=== PATIENT | male | born 1935 | race Caucasian/White ===

== ENCOUNTER 2019-09-10 09:15 | Inpatient (IN) | payer OTHER, MEDICARE ==
[2019-09-10 10:17] LABS: Absolute Lymphocytes (CBC) 0.8 K/uL (0.7-4.9); Basophils % 0.6 % (0-1.3); Hematocrit 21.6 % (39.6-49.0); Lymphocytes % 9.6 % (15.3-44.8); MPV 7.8 fL (7.6-11.3)
[2019-09-10] MEDS ORDERED: FAMOTIDINE 20 MG/2 ML VIAL IV ONE (10:22)
[2019-09-10] MEDS ORDERED: NA CHLORIDE 0.9% 1,000 ML ONE (10:22)
--- NOTE | 2019-09-10 10:24 | RAD REPORT ---
EXAM DESCRIPTION: RAD - Chest Single View - 09/10/2019 10:06 am CLINICAL HISTORY: COUGH Chest pain. COMPARISON: CHEST PA AND LAT 2 VIEW dated 04/24/2013; CHEST PA AND LAT 2 VIEW dated 08/22/2011; CHEST PA AND LAT 2 VIEW dated 06/06/2011; CHEST SINGLE VIEW dated 09/23/2006 FINDINGS: Portable technique limits examination quality. Mild interstitial prominence is present throughout lungs likely representing mild interstitial pulmon jorge luis edema or interstitial pneumonia. The heart is upper limit normal in size. No displaced fractures.
[2019-09-10 10:39] LABS: Protime INR 1.77
[2019-09-10 10:46] LABS: Albumin 1.8 g/dL (3.4-5.0); Bilirubin Direct 0.1 mg/dL (0-0.2); Bilirubin Total 0.3 mg/dL (0.2-1.0); Magnesium 1.8 mg/dL (1.8-2.4); Potassium 4.9 mmol/L (3.5-5.1); Protein, Total 6.8 g/dL (6.4-8.2); Troponin (Emerg Dept Use Only) 0.05 ng/mL (0.0-0.045)
[2019-09-10] MEDS ORDERED: CEFTRIAXONE/SWI 1gm 1 GM/10 ML SYR ONE (10:50)
--- NOTE | 2019-09-10 11:14 | ER ---
Nurse's Notes [facility] Name: Celestino Pardo Jr Age: 83 yrs Sex: Male : 1935 Arrival Date: 09/10/2019 Time: 09:19 Bed 6 Private MD: Diagnosis: Anemia, unspecified;Acute kidney failure-on chronic;Unspecified combined systolic (congestive) and diastolic (congestive) heart failure;Pressure ulcer of sacral region;Pressure ulcer of sacral region, stage 1;Urinary tract infection, site not specified Presentation: 09/09 09:20 Chief complaint: EMS states: He needs a blood transfusion. RBC 2.16; Hgb 6.3; HCT 19.2. 7 Faculty at [facility] reports he has multiple pressure ulcers. Coronavirus screen: Proceed with normal triage. Patient reports a cough. Patient denies shortness of breath or difficulty breathing. Patient denies measured and/or subjective temperature greater than 100.4F prior to today's visit. Patient denies travel on a cruise ship or to a country the [facility] currently lists as an affected area. Patient denies contact with known and/or suspected case of COVID-19. Ebola Screen: No symptoms or risks identified at this time. Initial Sepsis Screen: Does the patient meet any 2 criteria? No. Patient's initial sepsis screen is negative. Does the patient have a suspected source of infection? No. Patient's initial sepsis screen is negative. Risk Assessment: Do you want to hurt yourself or someone else? Patient reports no desire to harm self or others. Onset of symptoms was September 10, 2019. Care prior to arrival: None. 09:20 Method Of Arrival: EMS: [facility] 09:20 Acuity: KARISSA 3 Historical: - Allergies: 09:36 Ecotrin; - Home Meds: 09:36 amlodipine 5 mg tab 1 tab once daily [Active]; apixaban oral 2.5 mg oral [Active]; jl7 Arginaid 4.5 gram-156 mg/9.2 gram oral pwpk [Active]; ascorbic acid (vitamin C) oral [Active]; cholecalciferol (vitamin D3) 1,000 unit oral cap [Active]; Cholestyramine Light 4 gram oral powd 1 scoop 2 times per day [Active]; darbepoetin farrah in polysorbate injection injection [Active]; Diflucan 200 mg Oral tab 1 tab once daily [Active]; docusate sodium 100 mg Oral cap 1 cap once daily [Active]; Humalog Sub-Q [Active]; ipratropium-albuterol inhalation Inhl [Active]; Protonix Oral [Active]; Pyridoxine Oral [Active]; Santyl Topical [Active]; sennosides 8.6 mg oral tab [Active]; - PMHx: 09:36 Aspiration pneumonia; E. Coli; pseudomonas; dysphagia; pressure ulcers; obstructive and jl7 reflux uropathy; Anemia; Diabetes - IDDM; Hyperlipidemia; Dementia; Hypertension; CAD; CHF; DVT LUE; Bronchitis; constipation; GI Bleed; Renal Disease; - Immunization history:: Adult Immunizations up to date. - Social history:: Smoking status: Patient denies any tobacco usage or history of. - Family history:: not pertinent. Screenin:15 Abuse screen: Denies threats or abuse. Denies injuries from another. Nutritional iw screening: Difficulty chewing/swallowing? Yes. Tuberculosis screening: No symptoms or risk factors identified. Fall Risk IV access (20 points). Assessment: 10:12 General: Appears in no apparent distress. uncomfortable, Behavior is calm. Pain: iw Complains of pain in back and buttocks. Neuro: Level of Consciousness is awake, alert, obeys commands, Oriented to person, place, Weakness in left in bilateral arm(s) leg(s). Cardiovascular: Denies chest pain, Capillary refill is > 3 seconds. Respiratory: Respiratory effort is even, unlabored. GI: Abdomen is non-distended, bruising noted across abdomen Bowel sounds present X 4 quads. : Martin in place to gravity drainage Urine is cloudy. Derm: Skin is fragile, is thin, with poor turgor Skin is dry, Skin is pale, Decubitus located on sacrum approximately 2.6 cm to 7.5 cm is stage I bed has granulation present. 10:30 Reassessment: Patient appears in no apparent distress at this time. pt repositioned in iw bed, pillows placed under hips and right leg. 11:07 Reassessment: martin catheter changed out, yellow dried purulence noted to tip of martin iw and, replaced with 16 FR silicone martin, to gravity drainage. 12:00 Reassessment: First unit PRBCs started. NAD. VSS. See blood transfusion record in paper hb chart. 13:06 Reassessment: Blood infusion continues, pt denies SOB/pain, no apparent distress. Vital hb signs stable. Admission ordered, awaiting room assignment at this time. Vital Signs: 09:20 BP 111 / 55; Pulse 96; Resp 20 S; Temp 97(O); Pulse Ox 100% on R/A; Pain 0/10; jl7 10:32 BP 104 / 51; Pulse 89; Resp 16 S; Pulse Ox 98% on R/A; jl7 12:25 BP 115 / 56; Pulse 90; Resp 18; Pulse Ox 100% on R/A; hb 13:07 BP 113 / 64; Pulse 81; Resp 19; Pulse Ox 99% on R/A; hb [place] Coma Score: 11:37 Eye Response: spontaneous(4). Verbal Response: oriented(5). Motor Response: obeys tawanna commands(6). Total: 15. ED Course: 09:19 Patient arrived in ED. jl7 09:23 Triage completed. jl7 09:25 Chau Berg MD is Attending Physician. tawanna 09:36 Arm band placed on right wrist. jl7 09:40 Patient has correct armband on for positive identification. Placed in gown. Bed in low jl7 position. Call light in reach. Side rails up X2. 09:45 manager monitoring on. Pulse ox on. NIBP on. jl7 10:06 XRAY Chest (1 view) In Process Unspecified. EDMS 10:12 Initial lab(s) drawn, by me, sent to lab. X-ray(s) taken. Inserted saline lock: 20 iw gauge in right antecubital area, using aseptic technique. Blood collected. 10:23 Jennifer Lopez, LUTHER is Primary Nurse. jl7 10:23 Basic Metabolic Panel Sent. jl7 10:48 Notified ED physician of a critical lab result(s). Bicarb 14. aa5 11:10 Prince Rosa MD is Hospitalizing Provider. tawanna 13:16 No provider procedures requiring assistance completed. Patient admitted, IV remains in jl7 place. intact, No redness/swelling at site. Administered Medications: Discontinued: NS 0.9% 1000 ml IV at 125 ml/hr continuous 10:22 Drug: Pepcid 20 mg Route: IVP; Site: right antecubital; iw 10:35 Follow up: Response: No adverse reaction jl7 10:22 Drug: NS 0.9% 1000 ml Route: IV; Rate: 125 ml/hr; Site: right antecubital; iw 11:49 Drug: Rocephin 1 grams Route: IV; Rate: per protocol; Site: right antecubital; iw 11:52 Follow up: Response: No adverse reaction; IV Status: Completed infusion jl7 Point of Care Testing: Guaiac: 11:37 Stool Guaiac: Negative; Stool Hemoccult Control: Pass; tawanna Outcome: 11:13 Decision to Hospitalize by Provider. tawanna 13:16 Admitted to Med/surg accompanied by tech, via stretcher, room 207, with chart, Report jl7 called to LUTHER Light 13:16 Condition: stable 13:16 Discharge instructions given to patient, Instructed on discharge instructions, Demonstrated understanding of instructions. 14:01 Patient left the ED. jl7 Signatures: Dispatcher [employer] EDChau Harley MD MD cha Williams, Irene, RN RN Anali Daigle RN RN aa5 Galilea Harding, RN RN Jennifer Bradford RN RN jl7 Corrections: (The following items were deleted from the chart) 12:27 12:00 Reassessment: First unit PRBCs started. NAD. VSS. hb hb
--- NOTE | 2019-09-10 11:14 | EDPHYS ---
Physician Documentation [facility] Name: Celestino Pardo Jr Age: 83 yrs Sex: Male : 1935 Arrival Date: 09/10/2019 Time: 09:19 Bed 6 Private MD: ED Physician Chau Berg HPI: 09/09 09:36 This 83 yrs old Male presents to ER via EMS with complaints of Abnormal Lab tawanna Results, hgb 6.3. 09:36 sent from ma , hgb 6.3. Onset: The symptoms/episode began/occurred 2 day(s) ago. tawanna Severity of symptoms: At their worst the symptoms were mild in the emergency department the symptoms are unchanged. It is unknown whether or not the patient has had similar symptoms in the past. Historical: - Allergies: 09:36 Ecotrin; jl7 - Home Meds: 09:36 amlodipine 5 mg tab 1 tab once daily [Active]; apixaban oral 2.5 mg oral [Active]; jl7 Arginaid 4.5 gram-156 mg/9.2 gram oral pwpk [Active]; ascorbic acid (vitamin C) oral [Active]; cholecalciferol (vitamin D3) 1,000 unit oral cap [Active]; Cholestyramine Light 4 gram oral powd 1 scoop 2 times per day [Active]; darbepoetin farrah in polysorbate injection injection [Active]; Diflucan 200 mg Oral tab 1 tab once daily [Active]; docusate sodium 100 mg Oral cap 1 cap once daily [Active]; Humalog Sub-Q [Active]; ipratropium-albuterol inhalation Inhl [Active]; Protonix Oral [Active]; Pyridoxine Oral [Active]; Santyl Topical [Active]; sennosides 8.6 mg oral tab [Active]; - PMHx: 09:36 Aspiration pneumonia; E. Coli; pseudomonas; dysphagia; pressure ulcers; obstructive and jl7 reflux uropathy; Anemia; Diabetes - IDDM; Hyperlipidemia; Dementia; Hypertension; CAD; CHF; DVT LUE; Bronchitis; constipation; GI Bleed; Renal Disease; - Immunization history:: Adult Immunizations up to date. - Social history:: Smoking status: Patient denies any tobacco usage or history of. - Family history:: not pertinent. ROS: 09:41 Eyes: Negative for injury, pain, redness, and discharge, ENT: Negative for injury, tawanna pain, and discharge, Neck: Negative for injury, pain, and swelling, Cardiovascular: Negative for chest pain, palpitations, and edema, Respiratory: Negative for shortness of breath, cough, wheezing, and pleuritic chest pain, Abdomen/GI: Negative for abdominal pain, nausea, vomiting, diarrhea, and constipation, Back: Negative for injury and pain, : Negative for injury, bleeding, discharge, and swelling, Psych: Negative for depression, anxiety, suicide ideation, homicidal ideation, and hallucinations, Allergy/Immunology: Negative for hives, rash, and allergies, Endocrine: Negative for neck swelling, polydipsia, polyuria, polyphagia, and marked weight changes, Hematologic/Lymphatic: Negative for swollen nodes, abnormal bleeding, and unusual bruising. 09:41 Constitutional: Positive for fatigue, malaise, poor PO intake. 09:41 Skin: Positive for pallor. 09:41 Neuro: Positive for weakness. 10:02 Abdomen/GI: Negative for vomiting, black/tarry stool, no hx giveng of bloody stools, tawanna coffee ground emesis. Exam: 09:41 Constitutional: This is a well developed, well nourished patient who is awake, alert, tawanna and in no acute distress. Head/Face: Normocephalic, atraumatic. Eyes: Pupils equal round and reactive to light, extra-ocular motions intact. Lids and lashes normal. Conjunctiva and sclera are non-icteric and not injected. Cornea within normal limits. Periorbital areas with no swelling, redness, or edema. ENT: Nares patent. No nasal discharge, no septal abnormalities noted. Tympanic membranes are normal and external auditory canals are clear. Oropharynx with no redness, swelling, or masses, exudates, or evidence of obstruction, uvula midline. Mucous membranes moist. Neck: Trachea midline, no thyromegaly or masses palpated, and no cervical lymphadenopathy. Supple, full range of motion without nuchal rigidity, or vertebral point tenderness. No Meningismus. Chest/axilla: Normal chest wall appearance and motion. Nontender with no deformity. No lesions are appreciated. Cardiovascular: Regular rate and rhythm with a normal S1 and S2. No gallops, murmurs, or rubs. Normal PMI, no JVD. No pulse deficits. Respiratory: Lungs have equal breath sounds bilaterally, clear to auscultation and percussion. No rales, rhonchi or wheezes noted. No increased work of breathing, no retractions or nasal flaring. Abdomen/GI: Soft, non-tender, with normal bowel sounds. No distension or tympany. No guarding or rebound. No evidence of tenderness throughout. Back: No spinal tenderness. No costovertebral tenderness. Full range of motion. 09:41 Skin: Appearance: Color: pale. 09:41 Neuro: Orientation: is normal, appropriate for stated age, no acute changes, Mentation: appropriate for stated age, no acute changes, responsive to voice lucid, Memory: appropriate for stated age, no acute changes, Cranial nerves: grossly normal, is grossly normal based on the patient's age, Motor: moves all fours, bilateral legs weak, not ambulated for over a year, Gait: not tested. seizure activity, is not displayed by the patient. 10:27 Abdomen/GI: Inspection: abdomen appears normal, Bowel sounds: normal, Palpation: mild tawanna abdominal tenderness, Rectal exam: rectal tone normal, Stool: normal, hemorrhoid(s), are not appreciated, mass, is not appreciated, swelling, is not appreciated, tenderness, is not appreciated, the exam is chaperoned by the nurse, Liver: no appreciated palpable abnormalities, Hernia: not appreciated. 11:37 ECG was reviewed by the Attending Physician. [facility] Vital Signs: 09:20 BP 111 / 55; Pulse 96; Resp 20 S; Temp 97(O); Pulse Ox 100% on R/A; Pain 0/10; jl7 10:32 BP 104 / 51; Pulse 89; Resp 16 S; Pulse Ox 98% on R/A; jl7 12:25 BP 115 / 56; Pulse 90; Resp 18; Pulse Ox 100% on R/A; hb 13:07 BP 113 / 64; Pulse 81; Resp 19; Pulse Ox 99% on R/A; hb [place] Coma Score: 11:37 Eye Response: spontaneous(4). Verbal Response: oriented(5). Motor Response: obeys [facility] commands(6). Total: 15. MDM: 09:25 Patient medically screened. [facility] 09:45 Data reviewed: vital signs, nurses notes, lab test result(s), EKG, radiologic studies, [facility] plain films. 11:14 ED course: dr hebert agrees with plan and test ordered, will admit full admission, [facility] will assume care now. 09/09 09:46 Order name: Basic Metabolic Panel [facility] 09/09 09:46 Order name: CBC with Diff; Complete Time: 10:30 [facility] 09/09 09:46 Order name: LFT's; Complete Time: 11:05 [facility] 09/09 09:46 Order name: Magnesium; Complete Time: 11:05 [facility] 09/09 09:46 Order name: NT PRO-BNP; Complete Time: 11:05 [facility] 09/09 09:46 Order name: PT-INR; Complete Time: 11:05 [facility] 09/09 09:46 Order name: Troponin (emerg Dept Use Only); Complete Time: 11:05 [facility] 09/09 09:46 Order name: Urine Culture [facility] 09/09 09:46 Order name: Lipase; Complete Time: 11:05 [facility] 09/09 09:46 Order name: Type And Screen [facility] 09/09 09:47 Order name: Basic Metabolic Panel; Complete Time: 11:05 [facility] 09/09 09:54 Order name: Bb Add On 09/09 10:21 Order name: Packed RBC Leukored [facility] 09/09 11:11 Order name: ABO/RH no charge; Complete Time: 13:40 [facility] 09/09 09:46 Order name: XRAY Chest (1 view); Complete Time: 10:30 [facility] 09/09 09:46 Order name: Cardiac monitoring; Complete Time: 10:22 [facility] 09/09 09:46 Order name: EKG - Nurse/Tech; Complete Time: 10:22 [facility] 09/09 09:46 Order name: IV Saline Lock; Complete Time: 10:23 [facility] 09/09 11:05 Order name: EKG Electrocardiogram [facility] 09/09 11:40 Order name: Packed RBC Leukored [facility] 09/09 11:40 Order name: Hematocrit [facility] 09/09 11:40 Order name: Hemoglobin [facility] 09/09 11:41 Order name: ABO/RH typing [facility] 09/09 11:41 Order name: Antibody Screen [facility] 09/09 11:48 Order name: Urine Dipstick--Ancillary (enter results); Complete Time: 13:40 09/09 12:48 Order name: Diet Ada 1800 Anthony; Complete Time: 12:58 hb 09/09 09:46 Order name: Labs collected and sent; Complete Time: 10:23 tawanna 09/09 09:46 Order name: O2 Per Protocol; Complete Time: 10:23 tawanna 09/09 09:46 Order name: O2 Sat Monitoring; Complete Time: 10:23 tawanna 09/09 09:46 Order name: Urine Dipstick-Ancillary (obtain specimen); Complete Time: 11:46 tawanna 09/09 10:32 Order name: Hill; Complete Time: 11:10 tawanna 09/09 10:32 Order name: Transfuse; Complete Time: 12:47 tawanna EC:37 Rate is 96 beats/min. Rhythm is regular. QRS [place] is Normal. [place] interval is normal. QRS tawanna interval is normal. QT interval is normal. No Q waves. T waves are Normal. No ST changes noted. Administered Medications: Discontinued: NS 0.9% 1000 ml IV at 125 ml/hr continuous 10:22 Drug: Pepcid 20 mg Route: IVP; Site: right antecubital; iw 10:35 Follow up: Response: No adverse reaction jl 10:22 Drug: NS 0.9% 1000 ml Route: IV; Rate: 125 ml/hr; Site: right antecubital; iw 11:49 Drug: Rocephin 1 grams Route: IV; Rate: per protocol; Site: right antecubital; iw 11:52 Follow up: Response: No adverse reaction; IV Status: Completed infusion jl7 Point of Care Testing: Guaiac: 11:37 Stool Guaiac: Negative; Stool Hemoccult Control: Pass; [facility] Disposition: 09/10/19 11:13 Hospitalization ordered by Prince Shellye for Inpatient Admission. Preliminary diagnosis are Anemia, unspecified, Acute kidney failure - on chronic, Unspecified combined systolic (congestive) and diastolic (congestive) heart failure, Pressure ulcer of sacral region, Pressure ulcer of sacral region, stage 1, Urinary tract infection, site not specified. - Bed requested for Telemetry/MedSurg (Inpatient). - Status is Inpatient Admission. jl7 - Condition is Fair. - Problem is new. - Symptoms are unchanged. Signatures: Dispatcher [employer] Joyce Oscar RN RN dw Anderson, Corey, MD MD cha Williams, Irene, RN RN iw Leal, Jahala, RN RN jl7 Corrections: (The following items were deleted from the chart) 13:10 11:13 Hospitalization Ordered by Prince Shelley YADAV for Inpatient Admission. Preliminary dw diagnosis is Anemia, unspecified; Acute kidney failure - on chronic; Unspecified combined systolic (congestive) and diastolic (congestive) heart failure; Pressure ulcer of sacral region; Pressure ulcer of sacral region, stage 1. Bed requested for Telemetry/MedSurg (Inpatient). Status is Inpatient Admission. Condition is Fair. Problem is new. Symptoms are unchanged. tawanna 13:41 13:10 09/10/2019 11:13 Hospitalization Ordered by Prince Shelley YADAV for Inpatient tawanna Admission. Preliminary diagnosis is Anemia, unspecified; Acute kidney failure - on chronic; Unspecified combined systolic (congestive) and diastolic (congestive) heart failure; Pressure ulcer of sacral region; Pressure ulcer of sacral region, stage 1. Bed requested for Telemetry/MedSurg (Inpatient). Status is Inpatient Admission. Condition is Fair. Problem is new. Symptoms are unchanged. dw 14:01 13:41 09/10/2019 11:13 Hospitalization Ordered by Prince Shelley YADAV for Inpatient jl7 Admission. Preliminary diagnosis is Anemia, unspecified; Acute kidney failure - on chronic; Unspecified combined systolic (congestive) and diastolic (congestive) heart failure; Pressure ulcer of sacral region; Pressure ulcer of sacral region, stage 1; Urinary tract infection, site not specified. Bed requested for Telemetry/MedSurg (Inpatient). Status is Inpatient Admission. Condition is Fair. Problem is new. Symptoms are unchanged. tawanna
--- NOTE | 2019-09-10 11:30 | EKG ---
Test Date: 2019-09-10 Test Time: 09:28:02 Associate Director Of Sales: WALLACE MEASUREMENT RESULTS: Intervals: Rate: 96 VA: 216 QRSD: 126 QT: 368 QTc: 464 [place]: P: 71 VA: 216 QRS: -16 T: 176 INTERPRETIVE STATEMENTS: Sinus rhythm with 1st degree AV block with premature atrial complexes Left bundle branch block Abnormal ECG Compared to ECG 06/06/2011 11:47:13 Atrial premature complex(es) now present First degree AV block now present Left bundle-branch block now present Left-axis deviation no longer present Left ventricular hypertrophy no longer present Electronically Signed On 09-10-19 11:29:35 CDT by Johnnie Mccord
[2019-09-10] MEDS ORDERED: NA CHLORIDE 0.9% 250 ML IV SCH (12:00)
[2019-09-10 12:53] LABS: Urine Blood 3+ (NEG); Urine Glucose NEGATIVE (NEG); Urine Protein 3+ (NEG); Urine Specific Gravity >1.030 (1.005-1.030); Urine pH 5.5 (5.0-7.0)
--- NOTE | 2019-09-10 13:38 | P.HP ---
Certification for Inpatient With expected LOS: >2 Midnights Patient will require the following post-hospital care: None Practitioner: I am a practitioner with admitting privileges, knowledge of patient current condition, hospital course, and medical plan of care. Services: Services provided to patient in accordance with Admission requirements found in Title 42 Section 412.3 of the Code of Federal Regulations Patient History Date of Service: 09/10/19 Reason for admission: abnormal labs History of Present Illness: Rubi is a 83-year-old male who presents from a alf for evaluation after recent blood work revealed he had a hemoglobin of 6.3. During our encounter this morning patient was complaining of feeling fatigued. Otherwise he denied any other symptoms such as bleeding. The rectal exam in the ER was negative. Additional workup in the ER revealed that he had a positive nitrites in his urine. He was given 1 injection of ceftriaxone. Allergies aspirin [From Ecotrin] Allergy (Unverified 09/10/19 12:56) Itching/Hives/Rash Review of Systems A comprehensive review of system was conducted in the ER. Please assist unremarkable except for HPI above. Physical Examination - Physical Exam General: In no apparent distress, Other (Patient is slightly confused) HEENT: Atraumatic, Normocephalic Neck: Supple Respiratory: Clear to auscultation bilaterally, Normal air movement Cardiovascular: No edema, Normal pulses, Regular rate/rhythm, Normal S1 S2 Gastrointestinal: Normal bowel sounds, Soft and benign, Non-distended Musculoskeletal: No clubbing, No contractures, No erythema, No tenderness Integumentary: No tenderness/swelling, No warmth Neurological: Abnormal affect - Studies Laboratory Data (last 24 hrs) 09/10/19 10:05: PT 20.6 H, INR 1.77 09/10/19 10:05: WBC 8.5, Hgb 7.1 L*, Hct 21.6 L, Plt Count 540 H 09/10/19 10:05: Sodium 139, Potassium 4.9, BUN 80 H, Creatinine 3.40 H, Glucose 196 H, Magnesium 1.8, Total Bilirubin 0.3, AST 20, ALT 28, Alkaline Phosphatase 204 H, Lipase 60 L Assessment and Plan - Problems (Diagnosis) (1) Symptomatic anemia Current Visit: Yes Status: Acute (2) DIEGO (acute kidney injury) Current Visit: Yes Status: Acute - Advance Directives Does patient have a Living Will: No Does patient have a Durable POA for Healthcare: No Physician Review Additional Text: Assessment Patient is a 83-year-old male who was brought into the ER after was found to have abnormal lab results at his alf. Hemoglobin was 6.3 in the alf. Repeat hemoglobin in the ER 7.1. His baseline hb is 11. Chest x-ray in the ER also revealed mild evidence of pulmonary edema. Patient himself is lethargic on examination. Plan: Admit inpatient with telemetry Transfuse with 2 units of packed RBC Start patient on IV Lasix 40 mg b.i.d, preferrably between transfusions Obtain a 2-D echo Monitor renal function
[2019-09-10] MEDS: FUROSEMIDE 40 MG/4 ML VIAL IV SCH ×2 (14:47→15:14)
[2019-09-10] MEDS ORDERED: NA CHLORIDE 0.9% 250 ML ONE (15:40)
[2019-09-10 21:50] LABS: Hematocrit 24.8 % (39.6-49.0)
[2019-09-11 08:25] LABS: Absolute Lymphocytes (CBC) 1.3 K/uL (0.7-4.9); Basophils % 0.7 % (0-1.3); Hematocrit 31.2 % (39.6-49.0); Lymphocytes % 15.4 % (15.3-44.8); MPV 8.1 fL (7.6-11.3); RBC Red Blood Cell Count 3.53 M/uL (4.33-5.43)
--- NOTE | 2019-09-11 09:02 | ECHO ---
HEIGHT: 5 ft 10 in WEIGHT: 243 lb 0 oz DATE OF STUDY: 09/10/[address]: Prince Kaylynn Rosa MD 2-DIMENSIONAL: YES M.MODE: YES DOPPLER: YES COLOR FLOW: YES TDS: NO PORTABLE: NO DEFINITY: NO BUBBLE STUDY: NO DIAGNOSIS: CONGESTIVE HEART FAILURE CARDIAC HISTORY: CATHERIZATION: NO SURGERY: NO PROSTHETIC VALVE: NO PACEMAKER: NO MEASUREMENTS (cm) DIASTOLIC (NORMALS) SYSTOLIC (NORMALS) IVSd 1.0 (0.6-1.2) LA Diam 4.0 (1.9-4.0) LVEF 50% LVIDd 5.3 (3.5-5.7) LVIDs 3.9 (2.0-3.5) %FS 25% LVPWd 1.0 (0.6-1.2) Ao Diam 2.5 (2.0-3.7) 2 DIMENSIONAL ASSESSMENT: RIGHT ATRIUM: NORMAL LEFT ATRIUM: NORMAL RIGHT VENTRICLE: NORMAL LEFT VENTRICLE: NORMAL SIZE TRICUSPID VALVE: NORMAL MITRAL VALVE: MITRAL ANNULAR CALCIFICATION PULMONIC VALVE: NORMAL AORTIC VALVE: STENOTIC PERICARDIAL EFFUSION: NONE AORTIC ROOT: NORMAL LEFT VENTRICULAR WALL MOTION: NORMAL EJECTION FRACTION - DECREASED LEFT VENTRICULAR COMPLIANCE. DOPPLER/COLOR FLOW: MILD AORTIC STENOSIS - AREA 1.6 CENTIMETERS SQUARED. MILD TRICUSPID REGURGITATION - MODERATE PULMONARY HYPERTENSION. COMMENTS: DECREASED LEFT VENTRICULAR COMPLIANCE - NORMAL EJECTION FRACTION. MILD AORTIC STENOSIS - AREA 1.6 CENTIMETERS SQUARED. MODERATE PULMONARY HYPERTENSION - RIGHT VENTRICULAR SYSTOLIC PRESSURE 54mmHg. TECHNOLOGIST: NEMO ONOFRE
--- NOTE | 2019-09-11 09:19 | RAD REPORT ---
EXAM DESCRIPTION: RAD - Chest Single View - 09/11/2019 8:41 am CLINICAL HISTORY: Pulm edema COMPARISON: September 09 TECHNIQUE: AP portable chest image was obtained 09/11/2019 8:41 am . FINDINGS: Lung volumes are normal. Increasing alveolar opacification is present in the left upper lo be. No change to the left lung base or right lung base. Alveolar opacification is slightly increased in the right upper lobe. The asymmetry of lung parenchymal opacification would be atypical for pulmonary edema. This remains i n etiology. However, bilateral upper lobe pneumonia should be considered. Heart size is upper normal. Vasculature within normal limits. No measurable pleural effusion and no pneumothorax. No acute bony abnormality seen. No acute aortic findings suspected. IMPRESSION: Developing left upper lobe alveolar opacification and to a lesser degree, right upper lo be opacification. Pulmonary edema has been diagnosed. However, this asymmetric pattern would not be typical. Bilateral pneumonia should be considered.
[2019-09-11 09:37] LABS: Potassium 5.6 mmol/L (3.5-5.1)
[2019-09-11] MEDS: FUROSEMIDE 40 MG/4 ML VIAL IV SCH ×3 (10:35→17:25)
--- NOTE | 2019-09-11 11:00 | P.PN ---
Subjective Date of Service: 09/11/19 Chief Complaint: abnormal labs Subjective: No new changes, Other (Patient states he is feeling comfortable. Denies any shortness of breath. Has mild lower extremity) Physical Examination - Vital Signs Temperature: 97.5 F Blood Pressure: 121/51 Pulse: 83 Respirations: 18 Pulse Ox (%): 100 - Physical Exam General: Alert, In no apparent distress, Cooperative HEENT: Atraumatic, Normocephalic Respiratory: Clear to auscultation bilaterally, Normal air movement Cardiovascular: No edema, Normal pulses, Regular rate/rhythm, Systolic murmur Gastrointestinal: Normal bowel sounds, Soft and benign, Non-distended Musculoskeletal: Erythema, Tenderness, Other (lower extremity tenderness, no edema) Neurological: Normal speech, Sensation intact, Normal affect Urinary: Hill catheter - Studies Laboratory Data (last 24 hrs) 09/10/19 10:05: PT 20.6 H, INR 1.77 Assessment And Plan - Current Problems (Diagnosis) (1) Symptomatic anemia Current Visit: Yes Status: Acute (2) DIEGO (acute kidney injury) Current Visit: Yes Status: Acute (3) Cardiorenal syndrome with renal failure Current Visit: Yes Status: Acute (4) Hyperkalemia Current Visit: Yes Status: Acute (5) Acute on chronic diastolic (congestive) heart failure Current Visit: Yes Status: Acute (6) Moderate to severe pulmonary hypertension Current Visit: Yes Status: Acute (7) Mild aortic stenosis Current Visit: Yes Status: Acute Physician Review Additional Text: Assessment Patient is a 83-year-old male who was brought into the ER after he was found to have abnormal lab results at his longterm. His Hb was 6.3 at the longterm. Repeat hemoglobin in the ER was 7.1. Chart review revealed a baseline hb of 11. Chest x-ray in the ER also revealed mild evidence of pulmonary edema. He received 2 units of pRBC with IV lasix injection between transfusions. Repeat Hb 10.3. His hospital course was complicated by worsening renal function. His 2-D ECHO showed impaired ventricular relaxation, mild and moderate pulmonary HTN. 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
[2019-09-11] MEDS ORDERED: SOD POLYSTYREN SUL 15 GM/60 ML UCUP PO ONE (11:06)
[2019-09-11] MEDS ORDERED: LACTULOSE 20 GM/30 ML UCUP PO PRN (12:23)
[2019-09-11] MEDS ORDERED: ACETAMINOPHEN 325 MG TABLET PO PRN (12:23)
[2019-09-11] MEDS ORDERED: DARBEPOETIN ALFA SQ SCH (12:30)
[2019-09-11] MEDS ORDERED: [UNRECOGNIZED DRUG - OTHER] SQ SCH (12:30)
[2019-09-11] MEDS ORDERED: IPRATROPIUM IH PRN (12:32)
[2019-09-11] MEDS ORDERED: ALBUTEROL SULFATE IH PRN (12:32)
[2019-09-11] MEDS ORDERED: [UNRECOGNIZED DRUG - OTHER] IH PRN (12:32)
[2019-09-11] MEDS ORDERED: CEPACOL LOZENGES PO PRN (13:53)
[2019-09-11] MEDS ORDERED: ALBUTEROL 2.5 MG/3 ML NEB SOL IH PRN (13:57)
[2019-09-11] MEDS ORDERED: IPRATROPIUM BROM 0.5MG/2.5ML IH PRN (13:58)
[2019-09-11] MEDS: AZITHROMYCIN IV 500 MG in NA CHLORIDE 0.9% 250 ML IVPB SCH (14:39)
[2019-09-11] MEDS: CEFTRIAXONE/SWI 1gm 1 GM/10 ML SYR IV SCH (16:08)
[2019-09-11] MEDS: METOPROLOL TAR 25 MG TAB PO SCH (17:23)
[2019-09-11] MEDS: COLLAGENASE 30 GM OINTMENT TOP SCH (17:45)
--- NOTE | 2019-09-11 20:28 | CON ---
Date of Consultation: 09/11/[address] Rosa on 09/10/2019. I saw the patient on 09/11/2019. Reason For Consultation: Congestive heart failure. History Of Present Illness: The patient is an 83-year-old male who has a history of dementia, diabet es, hypertension, and dyslipidemia. He also has a history of CAD, CHF, DVT, chronic renal disease, a nd GI bleed. He was admitted to the hospital because of anemia. Hemoglobin is 6.3. He complained o f dyspnea. Chest x-ray showed possible pneumonia versus congestive heart failure. The patient is pr esently on antibiotics. He denied any chest pain. Denied any fever or chills. Denied any palpitati on or syncope. Echocardiogram showed mild aortic stenosis 1.6 sq cm, moderate pulmonary hypertension , and decreased left ventricular compliance. I was asked to see him. Past Medical History: As stated above. Allergies: TO ASPIRIN AND STATIN. Review of Systems: Negative. Social History: Negative. Family History: Noncontributory. Medications: At home include Eliquis, Norvasc, insulin, Haldol, and inhalers. Physical Examination: General: He was alert and oriented x3. He weighed 243 pounds. HEENT: Negative. Neck: Supple without any bruit, lymphadenopathy, JVD, or thyromegaly. Chest: Reveals some rales, both bases. Cardiac: Revealed irregular rhythm and rate with an aortic stenosis murmur and a tricuspid regurgita tion murmur. No gallops or rubs. Abdomen: Benign. Extremities: Revealed trace edema. Pulses were present distally bilaterally. Skin: Dry and intact. Diagnostic Data: He had a creatinine of 3.50. His last hemoglobin was 10.3 after transfusion. EKG showed left bundle-branch block. BNP is 21,729. Impression And Plan: 1.Acute on chronic diastolic congestive heart failure. 2.Mild aortic stenosis. 3.Moderate pulmonary hypertension. 4.Diabetes. 5.Hypertension. 6.Dyslipidemia. 7.Dementia. 8.Coronary artery disease. 9.History of deep vein thrombosis, left upper extremity, on Eliquis. 10.Renal insufficiency, acute on chronic, stage 4. 11.History of gastrointestinal bleed and anemia status post transfusions. I think Mr. Pardo needs to continue the Eliquis, Norvasc, and insulin. For his pulmonary hyperte nsion and congestive heart failure and aortic stenosis, he should be on a low-dose beta-william. He should avoid JASBIR inhibitors and ARB use. I will continue the Lasix, but I would be very careful with his creatinine as it is. There is a chance that his chest x-ray may be more consistent with pneumon ia than congestive heart failure, although he is antibiotics and his white count is normal. I would watch the creatinine. I agree with Dr. Bruno seeing the patient. I will continue to follow him. FLAKITA/NILO Voice ID: [id number] Report ID: [id number]
[2019-09-11] MEDS ORDERED: MELATONIN PO SCH (21:00)
[2019-09-11] MEDS ORDERED: CHOLESTYRAMINE PO SCH (21:00)
[2019-09-11] MEDS ORDERED: [UNRECOGNIZED DRUG - OTHER] PO SCH (21:00)
[2019-09-11] MEDS ORDERED: SENNOSIDES PO SCH (21:00)
[2019-09-11] MEDS: CHOLESTYRAMINE/ASP 4 GM/PKT PO SCH (21:12)
[2019-09-11] MEDS: DOCUSATE NA 100 MG CAP PO SCH (21:12)
[2019-09-11] MEDS: MELATONIN 3 MG TABLET PO SCH (21:12)
[2019-09-11] MEDS: ZINC SULFATE 220 MG CAP PO SCH (21:12)
[2019-09-11] MEDS: SENOSIDES 8.6 MG TAB PO SCH (21:13)
[2019-09-11] MEDS: APIXABAN 2.5 MG TABLET PO SCH (21:13)
--- NOTE | 2019-09-11 21:14 | P.CNS ---
Date of Consult: 09/11/19 Reason for Consult: DIEGO/ CKD Requesting Physician: Prince Kaylynn Rosa Chief Complaint: Fatigue in the setting of severe anemia History of Present Illness: 83 yo WM CKD, HTN presented to the ER with moderate, progressive fatigue in the setting of severe anemia and CKD. No modifying fx. Feeling better sp blood transfusion. 09:36 This 83 yrs old Male presents to ER via EMS with complaints of Abnormal Lab tawanna Results, hgb 6.3. 09:36 [place] from [place] , hgb 6.3. Onset: The symptoms/episode began/occurred 2 day(s) ago. tawanna Severity of symptoms: At their worst the symptoms were mild in the emergency department the symptoms are unchanged. It is unknown whether or not the patient has had similar symptoms in the past. Allergies aspirin [From Ecotrin] Allergy (Verified 09/10/19 14:48) Itching/Hives/Rash Jlxdhok-Loh-Nyo Reductase Inhibitor Allergy (Verified 09/10/19 14:49) Itching/Hives/Rash Home medications list reviewed: Yes Home Medications: Acetaminophen [Tylenol*] 2 tab PO Q4H PRN 09/10/19 Amlodipine [Norvasc*] 1 tab PO DAILY 09/10/19 Apixaban [Eliquis *] 1 tab PO BID 09/10/19 Arginine/Ascorbate Sod/Rosio AC [Arginaid Powder] 1 packet PO BID 09/10/19 Ascorbic Acid [Vitamin C] 1 tab PO BID 09/10/19 Calcium Carbonate [Tums] 2 tab PO TID 09/10/19 Cholecalciferol (Vitamin D3) [Vitamin D3] 3 tab PO DAILY 09/10/19 Cholestyramine (with Sugar) [Cholestyramine Packet] 1 packet PO BID 09/10/19 Collagenase [Santyl Ointment*] 1 tatyana TOP DAILY 09/10/19 Darbepoetin Roddy in Polysorbat [Aranesp] 1 ml SQ SEECOM 09/10/19 Docusate [Colace Cap*] 1 tab PO BID 09/10/19 Fluconazole [Diflucan] 1 tab PO DAILY 09/10/19 Folic Acid 1 tab PO DAILY 09/10/19 Halobetasol Propionate 1 tatyana TOP DAILY 09/10/19 Insulin Lispro [Humalog Kwikpen U-100] See Protocol SQ BID 09/10/19 Ipratropium/Albuterol Sulfate [Iprat-Albut 0.5-3(2.5) mg/3 ml] 1 amp IH Q6H PRN 09/10/19 Lactulose 30 ml PO PRN PRN 09/10/19 Melatonin 1 tab PO BEDTIME 09/10/19 Multivitamin [Multivitamins] 1 tab PO DAILY 09/10/19 Pantoprazole Sodium [Protonix] 1 tab PO DAILY 09/10/19 Polyethylene Glycol 3350 [Miralax] 1 packet PO DAILY 09/10/19 Pyridoxine HCl [Vitamin B-6] 1 tab PO DAILY 09/10/19 Sennosides [Senna] 1 tab PO BEDTIME 09/10/19 Zinc Sulfate [Zinc Sulfate*] 1 cap PO BID 09/10/19 - Past Medical/Surgical History Diabetic: Yes -: DM -: dementia -: GI bleed -: DVT -: CAD -: PVD -: insomnia -: urinary retention -: obstructive and reflux uropathy -: embolism and thrombosis of left internal jugular vein -: right leg surgery - Family History Mother Medical History: Cancer Father Medical History: Cancer - Social History Alcohol use: No CD- Drugs: No Caffeine use: No Place of Residence: Assisted Review of Systems 10-point ROS is otherwise unremarkable General: Weakness, Malaise Respiratory: SOB with Excertion Integumentary: Lesions Neurological: Weakness Physical Examination Temp Pulse Resp BP Pulse Ox 98.5 F 88 18 119/62 98 09/11/19 16:00 09/11/19 17:25 09/11/19 16:00 09/11/19 17:25 09/11/19 16:00 General: Alert, In no apparent distress, Oriented x3, Cooperative HEENT: Atraumatic Neck: Supple Respiratory: Clear to auscultation bilaterally Cardiovascular: Regular rate/rhythm, Edema (Trace hip edema) Gastrointestinal: Soft and benign, Non-distended Musculoskeletal: No clubbing, No contractures Integumentary: No rashes, No cyanosis Neurological: Normal speech, Abnormal strength Blood work reviewed in the chart. Imagings Data: EXAM DESCRIPTION: RAD - Chest Single View - 09/11/2019 8:41 am CLINICAL HISTORY: Pulm edema COMPARISON: September 09 TECHNIQUE: AP portable chest image was obtained 09/11/2019 8:41 am . FINDINGS: Lung volumes are normal. Increasing alveolar opacification is present in the left upper lobe. No change to the left lung base or right lung base. Alveolar opacification is slightly increased in the right upper lobe. The asymmetry of lung parenchymal opacification would be atypical for pulmonary edema. This remains in etiology. However, bilateral upper lobe pneumonia should be considered. Heart size is upper normal. Vasculature within normal limits. No measurable pleural effusion and no pneumothorax. No acute bony abnormality seen. No acute aortic findings suspected. IMPRESSION: Developing left upper lobe alveolar opacification and to a lesser degree, right upper lobe opacification. Pulmonary edema has been diagnosed. However, this asymmetric pattern would not be typical. Bilateral pneumonia should be considered. EXAM DESCRIPTION: RAD - Chest Single View - 09/10/2019 10:06 am CLINICAL HISTORY: COUGH Chest pain. COMPARISON: CHEST PA AND LAT 2 VIEW dated 04/24/2013; CHEST PA AND LAT 2 VIEW dated 08/22/2011; CHEST PA AND LAT 2 VIEW dated 06/06/2011; CHEST SINGLE VIEW dated 09/23/2006 FINDINGS: Portable technique limits examination quality. Mild interstitial prominence is present throughout lungs likely representing mild interstitial pulmonary edema or interstitial pneumonia. The heart is upper limit normal in size. No displaced fractures. Echocardiogram 04.14.20 LEFT VENTRICULAR WALL MOTION: NORMAL EJECTION FRACTION DECREASED LEFT VENTRICULAR COMPLIANCE. DOPPLER/COLOR FLOW: MILD AORTIC STENOSIS AREA 1.6 CENTIMETERS SQUARED. MILD TRICUSPID REGURGITATION MODERATE PULMONARY HYPERTENSION. COMMENTS: DECREASED LEFT VENTRICULAR COMPLIANCE NORMAL EJECTION FRACTION. MILD AORTIC STENOSIS AREA 1.6 CENTIMETERS SQUARED. MODERATE PULMONARY HYPERTENSION RIGHT VENTRICULAR SYSTOLIC PRESSURE 54mmHg. Conclusions/Impression: A/ DIEGO likely CRS. Hyperkalemia Acidosis CKD III Severe malnutritiion/ Hypoalbuminemia. Diastolic CHF, chronic. Aortic stenosis. Pulmonary HTN. Anemia in chronic illness. GI bleed. DM II with CKD. HTN with CKD/ CHF. Acute GNR Cystitis. P/ Continue current POC and Medications. Agree with Kayexalate. Hold Lasix. Give IV Albumin. Agree with PRBC. Transfuse as needed. Continue Aranesp. Start oral bicarb. No NSAIDs. AM labs. Daily weight. Thank you kindly for the consultation. Case reviewed with Dr. Rosa.
[2019-09-11] MEDS: SODIUM BICARB 325 MG TAB PO SCH (22:52)
[2019-09-11] MEDS: ALBUMIN HUMAN 25% 200 ML IV SCH (22:52)
[2019-09-12] MEDS: ALBUMIN HUMAN 25% 200 ML IV SCH (03:16)
[2019-09-12 04:49] LABS: Urine Appearance CLOUDY; Urine Bilirubin NEGATIVE (NEG); Urine Blood 3+ (NEG); Urine Color YELLOW; Urine Glucose NEGATIVE (NEG); Urine Protein 1+ (NEG); Urine Urobilinogen 0.2 mg/dL (0.2-1.0)
[2019-09-12 04:50] LABS: Basophils % 0.5 % (0-1.3); Hematocrit 22.8 % (39.6-49.0); Lymphocytes % 15.4 % (15.3-44.8); MPV 7.5 fL (7.6-11.3); RBC Red Blood Cell Count 2.56 M/uL (4.33-5.43)
[2019-09-12 05:08] LABS: UR MICROALBUMIN 18.1 mg/dL (< 1.9)
[2019-09-12 05:13] LABS: Albumin 1.9 g/dL (3.4-5.0); Bilirubin Total 0.3 mg/dL (0.2-1.0); Magnesium 1.7 mg/dL (1.8-2.4); Phosphorus 5.7 mg/dL (2.5-4.9); Potassium 4.3 mmol/L (3.5-5.1); Protein, Total 6.2 g/dL (6.4-8.2); Uric Acid 10.5 mg/dL (3.5-7.2)
[2019-09-12 05:18] LABS: Urine Bacteria <20 /HPF (NONE SEEN)
[2019-09-12 05:19] LABS: Urine Culture Reflex Order NOT NEEDED
[2019-09-12] MEDS: METOPROLOL TAR 25 MG TAB PO SCH ×2 (07:05→17:42)
[2019-09-12] MEDS ORDERED: Magnesium Sulfate 2gm IVPB 2 G/50 ML BAG IV ONE (07:14)
[2019-09-12] MEDS: APIXABAN 2.5 MG TABLET PO SCH ×3 (07:49→21:00)
[2019-09-12] MEDS ORDERED: PANTOPRAZOLE 40MG TABLET PO SCH (09:00)
[2019-09-12] MEDS ORDERED: FLUCONAZOLE PO SCH (09:00)
[2019-09-12] MEDS ORDERED: PYRIDOXINE HCL PO SCH (09:00)
[2019-09-12] MEDS: HALOBETASOL PROPIONATE TOP SCH (09:00)
[2019-09-12] MEDS: COLLAGENASE 30 GM OINTMENT TOP SCH (09:00)
[2019-09-12] MEDS ORDERED: Meropenem 500 MG VIAL IV SCH (09:00)
[2019-09-12] MEDS ORDERED: COLLAGENASE 30 GM OINTMENT TOP SCH (09:00)
[2019-09-12] MEDS ORDERED: CHOLECALCIFEROL PO SCH (09:00)
[2019-09-12] MEDS ORDERED: CEFTRIAXONE 1 GM/NS 50 ML 1 GM/50 ML BAG IV SCH (09:00)
--- NOTE | 2019-09-12 09:29 | PN ---
Date of Progress Note: 09/12/2019 Mr. Pardo was admitted with severe anemia. He is status post transfusion, last hemoglobin was 10 .3, and he is feeling better. He has diabetes, hypertension, dyslipidemia, dementia, coronary artery disease. On echocardiogram, he was found to have mild aortic stenosis with an area of 1.6 sq cm. H e also had moderate pulmonary hypertension and diastolic congestive heart failure. His last creatini ne was 3.5. Dr. Bruno saw the patient and he recommended p.o. bicarbonate and holding the Lasix an d I agree with that. I do not really think the patient is in that much congestive heart failure. Hi s vital signs remained stable with a blood pressure of 117/59, and he is in sinus rhythm. He has imp roved dramatically. I would continue his present regimen. Follow Renal recommendations and will con tinue to follow. FLAKITA/NILO Voice ID: [id number] Report ID: [id number]
[2019-09-12] MEDS: Meropenem 500 MG in NA CHLORIDE 0.9% 100 ML IV SCH ×2 (09:31→20:38)
[2019-09-12] MEDS: VITAMIN D 1000 UNIT TAB PO SCH (09:32)
[2019-09-12] MEDS: VITAMIN D 5,000 UNIT CAP PO SCH (09:32)
[2019-09-12] MEDS: CALCITROL 0.25 MCG CAP PO SCH (09:33)
[2019-09-12] MEDS: SODIUM BICARB 325 MG TAB PO SCH ×3 (09:33→17:39)
[2019-09-12] MEDS: ZINC SULFATE 220 MG CAP PO SCH ×2 (09:33→20:38)
[2019-09-12] MEDS: FLUCONAZOLE 100 MG TAB PO SCH (09:33)
[2019-09-12] MEDS: DOCUSATE NA 100 MG CAP PO SCH ×2 (09:33→20:27)
[2019-09-12] MEDS: PYRIDOXINE (VIT B6) 50 MG TAB PO SCH (09:34)
[2019-09-12] MEDS: POLYETHYL GLY 3350 17 GM/DOSE PO SCH (09:34)
[2019-09-12] MEDS: CHOLESTYRAMINE/ASP 4 GM/PKT PO SCH ×2 (09:34→20:37)
[2019-09-12] MEDS: FOLIC ACID 1 MG TABLET PO SCH (09:34)
--- NOTE | 2019-09-12 11:02 | RAD REPORT ---
EXAM DESCRIPTION: CT - Abdomen Pelvis Wo Contrast - 09/12/2019 7:42 am CLINICAL HISTORY: Abdominal pain. R/O internal bleeding COMPARISON: No comparisons TECHNIQUE: CT imaging of the abdomen and pelvis was performed without contrast. Solid organ, bowel a nd vascular assessment is limited due to lack of IV and oral contrast. All CT scans are performed using dose optimization technique as appropriate and may include automated exposure control or mA/KV adjustment according to patient size. FINDINGS: Small bilateral pleural effusions.Cholecystectomy clips. Heavy atherosclerosis. The liver, spleen, pancreas, adrenal glands are within normal limits for a limited non-contrast exami nation.3 cm benign-appearing left renal cyst. Small caliceal calculi present in both kidneys without hydronephrosis. No bowel obstruction, free air, free fluid or abscess. Scattered diverticulosis coli. The appendix is not identified as a discrete structure, however, no secondary findings of appendicitis are identifie d. Moderate lumbar spondylosis.Moderate fat containing left inguinal hernia. IMPRESSION: No acute finding is demonstrated on limited noncontrast study.
--- NOTE | 2019-09-12 11:12 | P.PN ---
Subjective Date of Service: 09/12/19 Chief Complaint: Fatigue in the setting of severe anemia Subjective: No new changes (Patient is comfortable, supine in bed. Not dyspneic. Denies any shortness of breath. He is only reporting occasional fatigue) Physical Examination - Vital Signs Temperature: 97.9 F Blood Pressure: 119/57 Pulse: 80 Respirations: 21 Pulse Ox (%): 100 - Physical Exam General: Alert, In no apparent distress, Cooperative HEENT: Atraumatic, Normocephalic, EOMI Neck: Supple Respiratory: Clear to auscultation bilaterally, Normal air movement Cardiovascular: No edema, Regular rate/rhythm, Normal S1 S2 Gastrointestinal: Normal bowel sounds, Soft and benign, Non-distended Musculoskeletal: Other (Inverted R foot. R foot with chronic venous stasis) Integumentary: Erythema, Warmth Neurological: Normal speech, Sensation intact, Normal affect - Studies Microbiology Data (last 24 hrs): 09/10/19 11:35 Catheterized Urine [place] Count - Final BETWEEN 10,000 & 100,000 CFU/ML 09/10/19 11:35 Catheterized Urine - Final Pseudomonas Aeruginosa Assessment & Plan - Problems (Diagnosis) (1) Symptomatic anemia Current Visit: Yes Status: Acute (2) DIEGO (acute kidney injury) Current Visit: Yes Status: Acute (3) Cardiorenal syndrome with renal failure Current Visit: Yes Status: Acute (4) Hyperkalemia Current Visit: Yes Status: Acute (5) Acute on chronic diastolic (congestive) heart failure Current Visit: Yes Status: Acute (6) Moderate to severe pulmonary hypertension Current Visit: Yes Status: Acute (7) Mild aortic stenosis Current Visit: Yes Status: Acute (8) Pseudomonas urinary tract infection Current Visit: Yes Status: Acute (9) Pneumonia Current Visit: Yes Status: Acute Physician Review Additional Text: Assessment Patient is a 83-year-old male who was brought into the ER after he was found to have abnormal lab results at his halfway. His Hb was 6.3 at the halfway. Repeat hemoglobin in the ER was 7.1. Chart review revealed a baseline hb of 11. Chest x-ray in the ER also revealed mild evidence of pulmonary edema. He received 2 units of pRBC with IV lasix injection between transfusions with appropriate response but continues to have drops in Hb. GI consulted on 09/12/2019 for EGD. He has no gross evidence of bleeding. He was on apixaban. Past colonoscopy and possible EGD with no alarming findings. His hospital course was complicated by worsening renal function. Nephrology recommended discontinuing diuresis since patient is preload dependent. His 2-D ECHO showed impaired ventricular relaxation, mild and moderate pulmonary HTN. 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
--- NOTE | 2019-09-12 13:39 | CON ---
Date of Consultation: 09/12/2019 Reason For Visit: Multiple wounds. History Of Present Illness: Patient is an 83-year-old gentleman who was admitted with abnormal labs with a hemoglobin of 6.3 and on evaluation was found to have multiple wounds on his sacrum and lower extremity and perineum. I had seen this patient in consultation at the [facility] last week. He is awake, alert, a little lethargic. No fevers, no chills. No purulent discharge. No sore thr oat, runny nose, cough, headaches, or dizziness. No chest pain. Review of Systems: Otherwise unremarkable. Past Medical History: Significant for pneumonia, dysphagia, pressure ulcers, diabetes type 1, hyperl ipidemia, hypertension, dementia, coronary artery disease. Past Surgical History: Significant for a recent incision and drainage of perineal abscess. Allergies: INCLUDE ECOTRIN. Habits: Currently he does not smoke or drink. Family History: Noncontributory. Physical Examination: Vital Signs: Stable. He is afebrile. He is awake and alert, but lethargic. Head and Neck: No masses. Chest: Clear. Heart: S1 and S2. Abdomen: Soft. Extremities: Palpable, but diminished dorsalis pedis and posterior tibial pulses. Wounds examined; patient has partial thickness wounds on the left lower leg. No surrounding erythema, warmth, or anita a. He has a perineal wound that is clean, it is approximately 1.5 cm, but it goes deep and he has a stage III small 2 x 3 cm, sacral decubitus. No surrounding erythema or warmth or edema. Assessment: Multiple wounds in a patient with significant anemia. Please note his H and H is 7.5 an d 22.8. He is getting an EGD today, probably colonoscopy, so that workup is in progress. Wound care orders given. Santyl for the sacrum, wet-to-dry with Santyl to the perineal wound and Silvadene to the lower extremity wounds, offloading air mattress, nutritional support, and vitamins. We will foll ow up the patient at the [facility] upon discharge. Planning care discussed with Dr. Rosa. MARIA D/NILO Voice ID: [id number] Report ID: [id number]
[2019-09-12] MEDS: SILVER SULFADIAZINE 1% 25 GM TOP SCH (14:02)
[2019-09-12] MEDS ORDERED: EPINEPHRINE/PF 1 MG/ML AMP ONE (14:35)
[2019-09-12] MEDS ORDERED: propofoL 200 MG/20 ML VIAL IV ONE (14:53)
[2019-09-12] MEDS ORDERED: Phenylephrine HCl 10 MG/ML 1 ML VIAL ONE (14:54)
[2019-09-12] MEDS ORDERED: NA CHLORIDE 0.9% 500 ML ONE (15:07)
[2019-09-12] MEDS ORDERED: SODIUM CHLORIDE 0.9% 10ML INJ IV PRN (15:37)
[2019-09-12] MEDS: AZITHROMYCIN IV 500 MG in NA CHLORIDE 0.9% 250 ML IVPB SCH (17:38)
[2019-09-12] MEDS: CEFTRIAXONE/SWI 1gm 1 GM/10 ML SYR IV SCH (17:39)
[2019-09-12] MEDS ORDERED: ALBUMIN HUMAN 25% 200 ML IV ONE (20:09)
--- NOTE | 2019-09-12 20:09 | P.PN ---
Date of Service: 09/12/19 Vital Signs Temp Pulse Resp BP Pulse Ox 97.0 F 85 18 133/62 98 09/12/19 16:00 09/12/19 17:42 09/12/19 16:00 09/12/19 17:42 09/12/19 16:00 Medications Acetaminophen (Tylenol -Tablet) 650 mg PO Q4H PRN PRN Reason: Pain scale 2-4 (Mild) Stop: 10/11/19 12:24 Albuterol Sulfate (Proventil 0.083% Neb Soln) 2.5 mg IH [id number] PRN PRN Reason: SHORTNESS OF BREATH Stop: 10/11/19 13:58 Apixaban (Eliquis) 2.5 mg PO BID [facility] Stop: 10/11/19 21:01 Last Admin: 09/12/19 07:49 Dose: Not Given Documented by: Calcitriol (Rocaltrol) 0.5 mcg PO DAILY [facility] Stop: 10/12/19 09:01 Last Admin: 09/12/19 09:33 Dose: 0.5 mcg Documented by: Cetylpyridinium Chloride/Menthol (Cepacol Lozenges) 1 yuliana PO Q6H PRN PRN Reason: COUGH Stop: 10/11/19 13:54 Last Admin: 09/11/19 14:39 Dose: 1 yuliana Documented by: Cholecalciferol (Vitamin D 1000 Iu Tab) 3,000 unit PO DAILY [facility] Stop: 10/12/19 09:01 Last Admin: 09/12/19 09:32 Dose: 3,000 unit Documented by: Cholecalciferol (Vitamin D 5,000 Iu Cap) 5,000 unit PO DAILY [facility] Stop: 10/12/19 09:01 Last Admin: 09/12/19 09:32 Dose: 5,000 unit Documented by: Cholestyramine Resin (Questran Light) 4 gm PO BID [facility] Stop: 10/11/19 21:01 Last Admin: 09/12/19 09:34 Dose: 4 gm Documented by: Collagenase (Santyl Ointment) 1 appl TOP DAILY [facility] Stop: 10/11/19 17:46 Last Admin: 09/12/19 09:00 Dose: 1 applic Documented by: Docusate Sodium (Colace Cap) 100 mg PO BID [facility] Stop: 10/11/19 21:01 Last Admin: 09/12/19 09:33 Dose: 100 mg Documented by: Fluconazole (Diflucan Tab) 100 mg PO DAILY [facility] Stop: 10/12/19 09:01 Last Admin: 09/12/19 09:33 Dose: 100 mg Documented by: Folic Acid (Folic Acid) 1 mg PO DAILY [facility] Stop: 10/12/19 09:01 Last Admin: 09/12/19 09:34 Dose: 1 mg Documented by: Home Med (Darbepoetin Roddy In Polysorbat [Aranesp]) 1 ml SQ SEECOM [facility] Stop: 10/11/19 12:31 Home Med (Halobetasol Propionate [Halobetasol Propionate]) 1 tatyana TOP DAILY [facility] Stop: 10/12/19 09:01 Last Admin: 09/12/19 09:00 Dose: Not Given Documented by: Sodium Chloride (Sodium Chloride) 250 mls @ 0 mls/hr IV .Q0M [facility] Stop: 10/10/19 12:01 Azithromycin 500 mg/ Sodium (Chloride) 250 mls @ 250 mls/hr IVPB 1700 [facility]; Protocol Stop: 10/11/19 14:01 Last Admin: 09/12/19 17:38 Dose: 250 mls Documented by: Ceftriaxone Sodium/Sodium Chloride (Rocephin 1 Gm/10 Ml Swi Ivp) 1 gm in 10 mls @ 600 mls/hr IV 1700 [facility] Stop: 10/11/19 17:01 Last Admin: 09/12/19 17:39 Dose: 10 mls Documented by: Meropenem 500 mg/ Sodium (Chloride) 100 mls @ 100 mls/hr IV Q12HR [facility] Stop: 10/12/19 09:01 Last Admin: 09/12/19 09:31 Dose: 100 mls Documented by: Ipratropium [place] (Atrovent Neb) 0.5 mg IH [id number] PRN PRN Reason: SHORTNESS OF BREATH Stop: 10/11/19 13:59 Lactulose (Cephulac) 20 gm PO PRN PRN PRN Reason: CONSTIPATION Stop: 10/11/19 12:24 Melatonin (Melatonin) 3 mg PO BEDTIME [facility] Stop: 10/11/19 21:01 Last Admin: 09/11/19 21:12 Dose: 3 mg Documented by: Metoprolol Tartrate (Lopressor) 25 mg PO BID 6AM 6PM [facility] Stop: 10/11/19 18:01 Last Admin: 09/12/19 17:42 Dose: 25 mg Documented by: Pantoprazole Sodium (Protonix Inj) 40 mg IVP Q12HR [facility]; Protocol Stop: 10/12/19 21:01 Polyethylene Glycol (Glycolax) 17 gm PO DAILY [facility] Stop: 10/12/19 09:01 Last Admin: 09/12/19 09:34 Dose: 17 gm Documented by: Pyridoxine HCl (Vitamin B-6) 100 mg PO DAILY [facility] Stop: 10/12/19 09:01 Last Admin: 09/12/19 09:34 Dose: 100 mg Documented by: Senna (Senokot) 8.6 mg PO BEDTIME [facility] Stop: 10/11/19 21:01 Last Admin: 09/11/19 21:13 Dose: 8.6 mg Documented by: Silver Sulfadiazine (Silvadene 1% Cream) 1 appl TOP DAILY [facility] Stop: 10/12/19 11:01 Last Admin: 09/12/19 14:02 Dose: 1 appl Documented by: Sodium Bicarbonate (Sodium Bicarb 325 Mg) 650 mg PO TIDWM [facility] Stop: 10/11/19 21:31 Last Admin: 09/12/19 17:39 Dose: 650 mg Documented by: Sodium Chloride (Sodium Chloride 10 Ml Inj) 10 ml IV UD PRN PRN Reason: Diluant Stop: 10/12/19 15:38 Zinc Sulfate (Zinc Sulfate) 220 mg PO BID [facility] Stop: 10/11/19 21:01 Last Admin: 09/12/19 09:33 Dose: 220 mg Documented by: Microbiology Results 09/10/19 11:35 Catheterized Urine [place] Count - Final BETWEEN 10,000 & 100,000 CFU/ML 09/10/19 11:35 Catheterized Urine - Final Pseudomonas Aeruginosa Assessment/ Plan: Nephrology Doing well. +PO CPS stable without CP or SOB. No acute events overnight. Vitals, medications, blood work and imaging reviewed in the chart. General: Alert, In no apparent distress, Oriented x3, Cooperative HEENT: Atraumatic Neck: Supple Respiratory: Clear to auscultation bilaterally Cardiovascular: Regular rate/rhythm, Edema (Trace hip edema) Gastrointestinal: Soft and benign, Non-distended Musculoskeletal: No clubbing, No contractures Integumentary: No rashes, No cyanosis Neurological: Normal speech, Abnormal strength Blood work reviewed in the chart. Imagings Data: EXAM DESCRIPTION: RAD - Chest Single View - 09/11/2019 8:41 am CLINICAL HISTORY: Pulm edema COMPARISON: September 09 TECHNIQUE: AP portable chest image was obtained 09/11/2019 8:41 am . FINDINGS: Lung volumes are normal. Increasing alveolar opacification is present in the left upper lobe. No change to the left lung base or right lung base. Alveolar opacification is slightly increased in the right upper lobe. The asymmetry of lung parenchymal opacification would be atypical for pulmonary edema. This remains in etiology. However, bilateral upper lobe pneumonia should be considered. Heart size is upper normal. Vasculature within normal limits. No measurable pleural effusion and no pneumothorax. No acute bony abnormality seen. No acute aortic findings suspected. IMPRESSION: Developing left upper lobe alveolar opacification and to a lesser degree, right upper lobe opacification. Pulmonary edema has been diagnosed. However, this asymmetric pattern would not be typical. Bilateral pneumonia should be considered. EXAM DESCRIPTION: RAD - Chest Single View - 09/10/2019 10:06 am CLINICAL HISTORY: COUGH Chest pain. COMPARISON: CHEST PA AND LAT 2 VIEW dated 04/24/2013; CHEST PA AND LAT 2 VIEW dated 08/22/2011; CHEST PA AND LAT 2 VIEW dated 06/06/2011; CHEST SINGLE VIEW dated 09/23/2006 FINDINGS: Portable technique limits examination quality. Mild interstitial prominence is present throughout lungs likely representing mild interstitial pulmonary edema or interstitial pneumonia. The heart is upper limit normal in size. No displaced fractures. Echocardiogram 04.14.20 LEFT VENTRICULAR WALL MOTION: NORMAL EJECTION FRACTION DECREASED LEFT VENTRICULAR COMPLIANCE. DOPPLER/COLOR FLOW: MILD AORTIC STENOSIS AREA 1.6 CENTIMETERS SQUARED. MILD TRICUSPID REGURGITATION MODERATE PULMONARY HYPERTENSION. COMMENTS: DECREASED LEFT VENTRICULAR COMPLIANCE NORMAL EJECTION FRACTION. MILD AORTIC STENOSIS AREA 1.6 CENTIMETERS SQUARED. MODERATE PULMONARY HYPERTENSION RIGHT VENTRICULAR SYSTOLIC PRESSURE 54mmHg. Conclusions/Impression: A/ DIEGO likely CRS. Hyperkalemia Acidosis CKD III Severe malnutritiion/ Hypoalbuminemia. Diastolic CHF, chronic. Aortic stenosis. Pulmonary HTN. Anemia in chronic illness. GI bleed. DM II with CKD. HTN with CKD/ CHF. Acute GNR Cystitis. P/ Continue current POC and Medications. Hold Lasix. Give IV Albumin. Agree with PRBC. Transfuse as needed. Follow up with surgery today for GI evaluation. Encourage nutrition. No NSAIDs. AM labs. Daily weight.
[2019-09-12] MEDS: SENOSIDES 8.6 MG TAB PO SCH (20:28)
[2019-09-12] MEDS: PANTOPRAZOLE 40 MG INJ IVP SCH (20:37)
[2019-09-12] MEDS: MELATONIN 3 MG TABLET PO SCH (20:38)
[2019-09-12] MEDS ORDERED: ALBUMIN HUMAN 25% 50 ML IV ONE (23:28)
--- NOTE | 2019-09-12 23:53 | OP ---
Surgeon: Estuardo Mcqueen MD Procedure: Esophagogastroduodenoscopy. Indication For Procedure: Gradual drop in hemoglobin, rule out upper GI source of bleeding and chron ic anemia. Plan For Anesthesia: Monitored anesthesia care. Complexity: High due to patient's comorbidities. Technique: After obtaining informed consent from the legal brand representative explaining risks and compl ications, which include, but are not limited to, bleeding, infection, perforation, and anesthesia com plication, the patient was placed in left lateral position and sedation was given. The scope was adv anced through the mouth and carefully guided up until the second portion of the duodenum. There was no evidence of active bleeding; however, some findings were discovered. After the completion of exam ination and all diagnostic maneuvers, scope and equipment were withdrawn and procedure terminated in a safe manner. Findings: Esophagus: No gross lesion in the upper and mid esophagus. However, in the distal esopha shay, there was evidence of whitish plaques typically consistent with cam esophagitis. Also seen was mucosal inflammation and some ulceration consistent with LA grade C esophagitis with granularity. Biopsies were taken from the distal esophagus. Stomach: Mild to moderate patchy area with erythema seen in the body and antrum. Complete visualiza tion of the fundus and upper body was not possible due to some remnant food, but no gross lesion was visualized. Antral and body biopsies were taken. Duodenum: The bulb and second portion appeared normal. Biopsies taken from the second portion for t he anemia to rule out celiac disease. Complications: None. Tolerance To Anesthesia: Excellent. Postoperative Diagnosis: Suspected candidal esophagitis, moderate to severe esophagitis with some ul ceration but no active bleeding, abnormal esophageal mucosa, gastritis. Plan: 1.Await pathology results. 2.Switch to IV PPI b.i.d. 3.Start full liquid diet, advance as tolerated. 4.I had a detailed discussion with Dr. Rosa in regard to the treatment of the cam given his c ardiac condition, his other medication and multiple current antibiotics. He is going to speak with I nfectious Disease who is already on board in regard to that and put the patient on appropriate antifu ngal. We will, of course wait, for the biopsies as well. I would like to do another endoscopy in 6 weeks' time to reevaluate the distal esophagus if possible. US/MODL Voice ID: [id number] Report ID: [id number]
[2019-09-13] MEDS: METOPROLOL TAR 25 MG TAB PO SCH ×2 (05:14→17:27)
[2019-09-13 05:28] LABS: Absolute Lymphocytes (CBC) 0.9 K/uL (0.7-4.9); Basophils % 0.4 % (0-1.3); Hematocrit 21.9 % (39.6-49.0); Lymphocytes % 12.9 % (15.3-44.8); MPV 7.9 fL (7.6-11.3); RBC Red Blood Cell Count 2.47 M/uL (4.33-5.43)
[2019-09-13 05:48] LABS: Albumin 2.4 g/dL (3.4-5.0); Bilirubin Total 0.3 mg/dL (0.2-1.0); Magnesium 1.9 mg/dL (1.8-2.4); Potassium 3.1 mmol/L (3.5-5.1); Protein, Total 6.4 g/dL (6.4-8.2); Uric Acid 10.6 mg/dL (3.5-7.2)
[2019-09-13] MEDS: Meropenem 500 MG in NA CHLORIDE 0.9% 100 ML IV SCH ×2 (08:46→21:51)
[2019-09-13] MEDS: CALCITROL 0.25 MCG CAP PO SCH (08:46)
[2019-09-13] MEDS: SODIUM BICARB 325 MG TAB PO SCH ×3 (08:46→16:46)
[2019-09-13] MEDS: FOLIC ACID 1 MG TABLET PO SCH (08:47)
[2019-09-13] MEDS: VITAMIN D 5,000 UNIT CAP PO SCH (08:47)
[2019-09-13] MEDS: FLUCONAZOLE 100 MG TAB PO SCH (08:47)
[2019-09-13] MEDS: POLYETHYL GLY 3350 17 GM/DOSE PO SCH (08:47)
[2019-09-13] MEDS: DOCUSATE NA 100 MG CAP PO SCH ×2 (08:47→20:10)
[2019-09-13] MEDS: CHOLESTYRAMINE/ASP 4 GM/PKT PO SCH ×2 (08:47→20:09)
[2019-09-13] MEDS: PANTOPRAZOLE 40 MG INJ IVP SCH ×2 (08:47→21:51)
[2019-09-13] MEDS: HALOBETASOL PROPIONATE TOP SCH (08:48)
[2019-09-13] MEDS: VITAMIN D 1000 UNIT TAB PO SCH (08:48)
[2019-09-13] MEDS: COLLAGENASE 30 GM OINTMENT TOP SCH (08:48)
[2019-09-13] MEDS: APIXABAN 2.5 MG TABLET PO SCH (08:48)
[2019-09-13] MEDS: ZINC SULFATE 220 MG CAP PO SCH ×2 (08:49→20:09)
[2019-09-13] MEDS: SILVER SULFADIAZINE 1% 25 GM TOP SCH (08:49)
[2019-09-13] MEDS: PYRIDOXINE (VIT B6) 50 MG TAB PO SCH (08:49)
[2019-09-13] MEDS ORDERED: MICAFUNGIN SODIUM 100 MG VIAL IV SCH (16:00)
[2019-09-13] MEDS: AZITHROMYCIN IV 500 MG in NA CHLORIDE 0.9% 250 ML IVPB SCH (16:46)
--- NOTE | 2019-09-13 16:52 | PN ---
Date of Progress Note: 09/13/2019 Mr. Pardo has diabetes, hypertension, dyslipidemia, coronary artery disease, diastolic congestive heart failure, mild aortic stenosis and moderate pulmonary hypertension. He remains anemic with a h emoglobin of 7.3, creatinine is 3.49 despite holding the Lasix and given oral bicarb. His carbon chula xide is 14. His potassium is 3.1, which needs to be gently supplemented considering his creatinine. EGD yesterday showed Davida esophagitis. He has received some wound care by Dr. Hurst. Nephrology continues to follow the patient. He is off Lasix. He is not displaying any symptoms or signs of co ngestive heart failure. I agree with the present medical regimen. I will continue to follow him. FLAKITA/NILO Voice ID: [id number] Report ID: [id number]
[2019-09-13] MEDS ORDERED: NA CHLORIDE 0.9% 250 ML ONE ×2 (18:03→21:56)
--- NOTE | 2019-09-13 18:33 | P.PN ---
Subjective Date of Service: 09/13/19 Chief Complaint: Fatigue in the setting of severe anemia Subjective: No new changes (No symptomatic change. Denies any dyspnea or fatigue. He is staying for another blood transfusion.) Physical Examination - Vital Signs Temperature: 97.1 F Blood Pressure: 133/56 Pulse: 91 Respirations: 18 Pulse Ox (%): 100 - Physical Exam General: In no apparent distress, Cooperative, Other (slightly lethargic) HEENT: Atraumatic, Normocephalic, EOMI Neck: Supple Respiratory: Clear to auscultation bilaterally, Normal air movement Cardiovascular: Systolic murmur Gastrointestinal: Normal bowel sounds, Soft and benign, Non-distended Musculoskeletal: Other (R foot internally rotated) Integumentary: Other (bilateral lower extremity skin discoloration) Neurological: Normal speech, Sensation intact, Normal affect Assessment & Plan - Problems (Diagnosis) (1) Symptomatic anemia Current Visit: Yes Status: Acute (2) DIEGO (acute kidney injury) Current Visit: Yes Status: Acute (3) Cardiorenal syndrome with renal failure Current Visit: Yes Status: Acute (4) Hyperkalemia Current Visit: Yes Status: Acute (5) Acute on chronic diastolic (congestive) heart failure Current Visit: Yes Status: Acute (6) Moderate to severe pulmonary hypertension Current Visit: Yes Status: Acute (7) Mild aortic stenosis Current Visit: Yes Status: Acute (8) Pseudomonas urinary tract infection Current Visit: Yes Status: Acute (9) Pneumonia Current Visit: Yes Status: Acute Physician Review Additional Text: Assessment Patient is a 83-year-old male who was brought into the ER after he was found to have abnormal lab results at his assisted. His Hb was 6.3 at the assisted. Repeat hemoglobin in the ER was 7.1. Chart review revealed a baseline hb of 11. Chest x-ray in the ER also revealed mild evidence of pulmonary edema. He received 2 units of pRBC with IV lasix injection between transfusions with appropriate response but continues to have drops in Hb. Apixaban was discontinued. He underwent an EGD by GI on 09/12/2019 which showed no signs of active bleeding. However, it revealed esophageal ulcerations concerning for fungal infection. He was started on fluconazole. ID was also consulted as patient is also on meropenem for MDR pseudomonas UTI. His hospital course was complicated by worsening renal function. Nephrology recommended discontinuing diuresis since patient is preload dependent. His 2-D ECHO showed impaired ventricular relaxation, mild and moderate pulmonary HTN. Acute on chronic diastolic CHF Sympptomatic anemia Cardiorenal syndrome Moderate pulmonary HTN Mild aortic stenosis MDR pseudomonas UTI Pneumonia Plan: Transfuse another unit of pRBC Continue holding apixaban Discussed case with ID [facility] for check drug-drug interactions as patient is on fluconazole and meropenem Follow up repeat EGD in 6 weeks Hold diuresis Continue sodium bicarb Surgery was consulted for multiple sacral wounds. Santyl for the sacrum, we t-to-dry with Santyl to the perineal wound and Silvadene to the lower extremity wounds, offloading air mattress, nutritional support, and vitamins. Monitor renal function
[2019-09-13] MEDS: SENOSIDES 8.6 MG TAB PO SCH (20:09)
[2019-09-13] MEDS: MELATONIN 3 MG TABLET PO SCH (20:10)
[2019-09-13] MEDS ORDERED: POTASSIUM CL SA 10 MEQ TAB PO ONE ×2 (20:11→23:45)
--- NOTE | 2019-09-13 20:22 | P.PN ---
Date of Service: 09/13/19 Vital Signs Temp Pulse Resp BP Pulse Ox 97.1 F 91 H 18 133/56 L 100 09/13/19 18:37 09/13/19 18:37 09/13/19 18:37 09/13/19 18:37 09/13/19 18:37 Medications Acetaminophen (Tylenol -Tablet) 650 mg PO Q4H PRN PRN Reason: Pain scale 2-4 (Mild) Stop: 10/11/19 12:24 Albuterol Sulfate (Proventil 0.083% Neb Soln) 2.5 mg IH [id number] PRN PRN Reason: SHORTNESS OF BREATH Stop: 10/11/19 13:58 Apixaban (Eliquis) 2.5 mg PO BID [facility] Stop: 10/11/19 21:01 Last Admin: 09/13/19 08:48 Dose: 2.5 mg Documented by: Calcitriol (Rocaltrol) 0.5 mcg PO DAILY [facility] Stop: 10/12/19 09:01 Last Admin: 09/13/19 08:46 Dose: 0.5 mcg Documented by: Cetylpyridinium Chloride/Menthol (Cepacol Lozenges) 1 yuliana PO Q6H PRN PRN Reason: COUGH Stop: 10/11/19 13:54 Last Admin: 09/11/19 14:39 Dose: 1 yuliana Documented by: Cholecalciferol (Vitamin D 1000 Iu Tab) 3,000 unit PO DAILY [facility] Stop: 10/12/19 09:01 Last Admin: 09/13/19 08:48 Dose: 3,000 unit Documented by: Cholecalciferol (Vitamin D 5,000 Iu Cap) 5,000 unit PO DAILY [facility] Stop: 10/12/19 09:01 Last Admin: 09/13/19 08:47 Dose: 5,000 unit Documented by: Cholestyramine Resin (Questran Light) 4 gm PO BID [facility] Stop: 10/11/19 21:01 Last Admin: 09/13/19 20:09 Dose: 4 gm Documented by: Collagenase (Santyl Ointment) 1 appl TOP DAILY [facility] Stop: 10/11/19 17:46 Last Admin: 09/13/19 08:48 Dose: 1 applic Documented by: Docusate Sodium (Colace Cap) 100 mg PO BID [facility] Stop: 10/11/19 21:01 Last Admin: 09/13/19 20:10 Dose: 100 mg Documented by: Fluconazole (Diflucan Tab) 100 mg PO DAILY [facility] Stop: 10/12/19 09:01 Last Admin: 09/13/19 08:47 Dose: 100 mg Documented by: Folic Acid (Folic Acid) 1 mg PO DAILY [facility] Stop: 10/12/19 09:01 Last Admin: 09/13/19 08:47 Dose: 1 mg Documented by: Home Med (Darbepoetin Roddy In Polysorbat [Aranesp]) 1 ml SQ SEECOM [facility] Stop: 10/11/19 12:31 Home Med (Halobetasol Propionate [Halobetasol Propionate]) 1 tatyana TOP DAILY [facility] Stop: 10/12/19 09:01 Last Admin: 09/13/19 08:48 Dose: Not Given Documented by: Sodium Chloride (Sodium Chloride) 250 mls @ 0 mls/hr IV .Q0M [facility] Stop: 10/10/19 12:01 Meropenem 500 mg/ Sodium (Chloride) 100 mls @ 100 mls/hr IV Q12HR [facility] Stop: 10/12/19 09:01 Last Admin: 09/13/19 20:09 Dose: 100 mls Documented by: Sodium Bicarbonate 50 meq/ (Dextrose/Water) 1,050 mls @ 100 mls/hr IV .[id number] [facility] Stop: 09/14/19 07:29 Ipratropium [place] (Atrovent Neb) 0.5 mg IH [id number] PRN PRN Reason: SHORTNESS OF BREATH Stop: 10/11/19 13:59 Lactulose (Cephulac) 20 gm PO PRN PRN PRN Reason: CONSTIPATION Stop: 10/11/19 12:24 Melatonin (Melatonin) 3 mg PO BEDTIME [facility] Stop: 10/11/19 21:01 Last Admin: 09/13/19 20:10 Dose: 3 mg Documented by: Metoprolol Tartrate (Lopressor) 25 mg PO BID 6AM 6PM [facility] Stop: 10/11/19 18:01 Last Admin: 09/13/19 17:27 Dose: 25 mg Documented by: Pantoprazole Sodium (Protonix Inj) 40 mg IVP Q12HR [facility]; Protocol Stop: 10/12/19 21:01 Last Admin: 09/13/19 20:09 Dose: 40 mg Documented by: Polyethylene Glycol (Glycolax) 17 gm PO DAILY [facility] Stop: 10/12/19 09:01 Last Admin: 09/13/19 08:47 Dose: 17 gm Documented by: Potassium Chloride (Klor-Con 10 Meq Tab) 40 meq PO 1X ONE Stop: 09/13/19 23:46 Pyridoxine HCl (Vitamin B-6) 100 mg PO DAILY [facility] Stop: 10/12/19 09:01 Last Admin: 09/13/19 08:49 Dose: 100 mg Documented by: Jn (Senokot) 8.6 mg PO BEDTIME [facility] Stop: 10/11/19 21:01 Last Admin: 09/13/19 20:09 Dose: 8.6 mg Documented by: Silver Sulfadiazine (Silvadene 1% Cream) 1 appl TOP DAILY [facility] Stop: 10/12/19 11:01 Last Admin: 09/13/19 08:49 Dose: 1 appl Documented by: Sodium Bicarbonate (Sodium Bicarb 325 Mg) 650 mg PO TIDWM [facility] Stop: 10/11/19 21:31 Last Admin: 09/13/19 16:46 Dose: 650 mg Documented by: Sodium Chloride (Sodium Chloride 10 Ml Inj) 10 ml IV UD PRN PRN Reason: Diluant Stop: 10/12/19 15:38 Zinc Sulfate (Zinc Sulfate) 220 mg PO BID [facility] Stop: 10/11/19 21:01 Last Admin: 09/13/19 20:09 Dose: 220 mg Documented by: Lab Results (last 24 hrs) 09/10/19 10:05: ABO/Rh A NEGATIVE, Solid Phase Ab Screen Negative, Crossmatch See Detail Microbiology Results 09/10/19 11:35 Catheterized Urine [place] Count - Final BETWEEN 10,000 & 100,000 CFU/ML 09/10/19 11:35 Catheterized Urine - Final Pseudomonas Aeruginosa Assessment/ Plan: Nephrology Doing well. +PO CPS stable without CP or SOB. No acute events overnight. Vitals, medications, blood work and imaging reviewed in the chart. General: Alert, In no apparent distress, Oriented x3, Cooperative HEENT: Atraumatic Neck: Supple Respiratory: Clear to auscultation bilaterally Cardiovascular: Regular rate/rhythm, Edema (Trace hip edema) Gastrointestinal: Soft and benign, Non-distended Musculoskeletal: No clubbing, No contractures Integumentary: No rashes, No cyanosis Neurological: Normal speech, Abnormal strength Blood work reviewed in the chart. Imagings Data: EXAM DESCRIPTION: RAD - Chest Single View - 09/11/2019 8:41 am CLINICAL HISTORY: Pulm edema COMPARISON: September 09 TECHNIQUE: AP portable chest image was obtained 09/11/2019 8:41 am . FINDINGS: Lung volumes are normal. Increasing alveolar opacification is present in the left upper lobe. No change to the left lung base or right lung base. Alveolar opacification is slightly increased in the right upper lobe. The asymmetry of lung parenchymal opacification would be atypical for pulmonary edema. This remains in etiology. However, bilateral upper lobe pneumonia should be considered. Heart size is upper normal. Vasculature within normal limits. No measurable pleural effusion and no pneumothorax. No acute bony abnormality seen. No acute aortic findings suspected. IMPRESSION: Developing left upper lobe alveolar opacification and to a lesser degree, right upper lobe opacification. Pulmonary edema has been diagnosed. However, this asymmetric pattern would not be typical. Bilateral pneumonia should be considered. EXAM DESCRIPTION: RAD - Chest Single View - 09/10/2019 10:06 am CLINICAL HISTORY: COUGH Chest pain. COMPARISON: CHEST PA AND LAT 2 VIEW dated 04/24/2013; CHEST PA AND LAT 2 VIEW dated 08/22/2011; CHEST PA AND LAT 2 VIEW dated 06/06/2011; CHEST SINGLE VIEW dated 09/23/2006 FINDINGS: Portable technique limits examination quality. Mild interstitial prominence is present throughout lungs likely representing mild interstitial pulmonary edema or interstitial pneumonia. The heart is upper limit normal in size. No displaced fractures. Echocardiogram 04.14.20 LEFT VENTRICULAR WALL MOTION: NORMAL EJECTION FRACTION DECREASED LEFT VENTRICULAR COMPLIANCE. DOPPLER/COLOR FLOW: MILD AORTIC STENOSIS AREA 1.6 CENTIMETERS SQUARED. MILD TRICUSPID REGURGITATION MODERATE PULMONARY HYPERTENSION. COMMENTS: DECREASED LEFT VENTRICULAR COMPLIANCE NORMAL EJECTION FRACTION. MILD AORTIC STENOSIS AREA 1.6 CENTIMETERS SQUARED. MODERATE PULMONARY HYPERTENSION RIGHT VENTRICULAR SYSTOLIC PRESSURE 54mmHg. Conclusions/Impression: A/ DIEGO suspicious for ATN. May be diuretic phase. Hyperkalemia/ Hypokalemia Acidosis CKD III with proteinuria. Baseline Cr ~1.6 Severe malnutritiion/ Hypoalbuminemia. Diastolic CHF, chronic. Aortic stenosis. Pulmonary HTN. Anemia in chronic illness. GI bleed. DM II with CKD. HTN with CKD/ CHF. Acute GNR Cystitis. P/ Continue current POC and Medications. Hold Lasix. Give a liter of free water with bicarb. Give potassium. Agree with PRBC. Transfuse as needed. Follow up with surgery today for GI evaluation. Encourage nutrition. No NSAIDs. AM labs. Daily weight.
[2019-09-13] MEDS ORDERED: D5W 1,000 ML with NA BICARB 8.4% 50 MEQ IV SCH ×2 (21:00)
[2019-09-13] MEDS ORDERED: SODIUM BICARB 50 MEQ/50ML VIAL ONE (22:23)
[2019-09-13] MEDS ORDERED: D5W 1,000 ML IV ONE (22:24)
[2019-09-14] MEDS: METOPROLOL TAR 25 MG TAB PO SCH ×2 (05:02→18:00)
[2019-09-14 06:27] LABS: Absolute Lymphocytes (CBC) 1.1 K/uL (0.7-4.9); Basophils % 0.5 % (0-1.3); Hematocrit 30.1 % (39.6-49.0); Lymphocytes % 10.3 % (15.3-44.8); MPV 7.9 fL (7.6-11.3); RBC Red Blood Cell Count 3.44 M/uL (4.33-5.43)
[2019-09-14 06:45] LABS: Magnesium 1.7 mg/dL (1.8-2.4); Potassium 4.1 mmol/L (3.5-5.1); Uric Acid 9.8 mg/dL (3.5-7.2)
[2019-09-14] MEDS ORDERED: D5W 1,000 ML with NA BICARB 8.4% 50 MEQ IV SCH ×2 (08:00)
[2019-09-14] MEDS: SODIUM BICARB 325 MG TAB PO SCH ×3 (08:00→17:00)
[2019-09-14] MEDS: HALOBETASOL PROPIONATE TOP SCH (09:00)
[2019-09-14] MEDS: PANTOPRAZOLE 40 MG INJ IVP SCH ×2 (09:00→22:35)
[2019-09-14] MEDS: FLUCONAZOLE 100 MG TAB PO SCH (10:09)
[2019-09-14] MEDS: Meropenem 500 MG in NA CHLORIDE 0.9% 100 ML IV SCH ×2 (10:09→22:25)
[2019-09-14] MEDS: CHOLESTYRAMINE/ASP 4 GM/PKT PO SCH ×2 (10:10→22:34)
[2019-09-14] MEDS: CALCITROL 0.25 MCG CAP PO SCH (10:10)
[2019-09-14] MEDS: FOLIC ACID 1 MG TABLET PO SCH (10:10)
[2019-09-14] MEDS: PYRIDOXINE (VIT B6) 50 MG TAB PO SCH (10:10)
[2019-09-14] MEDS: VITAMIN D 5,000 UNIT CAP PO SCH (10:10)
[2019-09-14] MEDS: POLYETHYL GLY 3350 17 GM/DOSE PO SCH (10:10)
[2019-09-14] MEDS: ZINC SULFATE 220 MG CAP PO SCH ×2 (10:10→22:35)
[2019-09-14] MEDS: DOCUSATE NA 100 MG CAP PO SCH ×2 (10:11→22:25)
[2019-09-14] MEDS: SILVER SULFADIAZINE 1% 25 GM TOP SCH (13:46)
[2019-09-14] MEDS: COLLAGENASE 30 GM OINTMENT TOP SCH (13:46)
[2019-09-14] MEDS ORDERED: Magnesium Sulfate 2gm IVPB 2 G/50 ML BAG IV ONE (15:16)
--- NOTE | 2019-09-14 18:04 | P.PN ---
Subjective Date of Service: 09/14/19 Chief Complaint: Fatigue in the setting of severe anemia Subjective: No new changes Physical Examination - Vital Signs Temperature: 98.2 F Blood Pressure: 123/59 Pulse: 95 Respirations: 20 Pulse Ox (%): 97 - Physical Exam General: Cooperative, Other (lethargic) HEENT: Atraumatic, Normocephalic Neck: Supple Respiratory: Clear to auscultation bilaterally, Normal air movement Cardiovascular: Normal pulses, Regular rate/rhythm, Systolic murmur Gastrointestinal: Normal bowel sounds, Soft and benign, Non-distended Musculoskeletal: No clubbing, No swelling, No contractures, No tenderness Neurological: Normal speech, Sensation intact, Normal affect Assessment & Plan - Problems (Diagnosis) (1) Symptomatic anemia Current Visit: Yes Status: Acute (2) DIEGO (acute kidney injury) Current Visit: Yes Status: Acute (3) Cardiorenal syndrome with renal failure Current Visit: Yes Status: Acute (4) Hyperkalemia Current Visit: Yes Status: Acute (5) Acute on chronic diastolic (congestive) heart failure Current Visit: Yes Status: Acute (6) Moderate to severe pulmonary hypertension Current Visit: Yes Status: Acute (7) Mild aortic stenosis Current Visit: Yes Status: Acute (8) Pseudomonas urinary tract infection Current Visit: Yes Status: Acute (9) Pneumonia Current Visit: Yes Status: Acute Physician Review Additional Text: Assessment Patient is a 83-year-old male who was brought into the ER after he was found to have abnormal lab results at his [facility]. His Hb was 6.3 at the [facility]. Repeat hemoglobin in the ER was 7.1. Chart review revealed a baseline hb of 11. Chest x-ray in the ER also revealed mild evidence of pulmonary edema. He received 2 units of pRBC with IV lasix injection between transfusions with appropriate response but continues to have drops in Hb. Ap ixaban was discontinued. He underwent an EGD by GI on 09/12/2019 which showed no signs of active bleeding. However, it revealed esophageal ulcerations concerning for fungal infection. He was started on fluconazole. ID was also consulted as patient is also on meropenem for MDR pseudomonas UTI. His hospital course was complicated by worsening renal function. Nephrology recommended discontinuing diuresis since patient is preload dependent. His 2-D ECHO showed impaired ventricular relaxation, mild and moderate pulmonary HTN. Acute on chronic diastolic CHF Sympptomatic anemia Cardiorenal syndrome Moderate pulmonary HTN Mild aortic stenosis MDR pseudomonas UTI Pneumonia Plan: Continue trending H/H post transfusion Discharge tomorrow if H/H stable Continue holding apixaban Discharge with diflucan for possible esophageal candidiasis PICC line for outpatient [place] of MDR pseudomonas UTI (total duration: 10 days. Repeat UA after 7 days) Follow up repeat EGD in 6 weeks Hold diuresis Continue sodium bicarb Surgery was consulted for multiple sacral wounds. Santyl for the sacrum, wet-to-dry with Santyl to the perineal wound and Silvadene to the lower extremity wounds, offloading air mattress, nutritional support, and vitamins. Monitor renal function
--- NOTE | 2019-09-14 20:44 | PN ---
Date of Progress Note: 09/14/2019 Subjective: Patient is seen at bedside. No overnight events reported. The patient feels well. He denies any fevers, chills, chest pain, shortness of breath, nausea, vomiting, or diarrhea. Unclear if the patient is planning to have a GI workup at this time. Objective: Vital Signs: Blood pressure is 123/59, pulse 95, afebrile. Input and output have been 8 50 in, 2554 out, negative 1.7 L balance. General: Obese. No acute distress. Heart: Regular rate and rhythm. No murmurs, rubs, or gallops. Lungs: Clear to auscultation bilaterally. Abdomen: Soft, nontender, nondistended. Extremities: No significant edema. Some chronic venous stasis changes noted. GENITOURINARY: Hill catheter with clear yellow urine. Current Medications: Reviewed. Patient is on D5 with hypotonic sodium bicarbonate at 85 mL/h. Dennise ent is also continued on oral sodium bicarbonate tablets 650 t.i.d. Impression: 1.Acute kidney injury on chronic kidney disease. 2.Metabolic acidosis. 3.Electrolyte abnormalities. 4.Pseudomonal urinary tract infection. 5.Gastrointestinal bleed. Plan: 1.Renal function has not been showing much significant change even with initiation of IV fluids. Th e patient may have a new baseline. The patient is having a significant negative balance now and so, we will continue the current IV fluids. The patient is on hypotonic bicarbonate solution, so we will monitor sodium level and bicarb levels with serial blood work. The patient's magnesium has been rep leted. Continue antibiotics for UTI. Continue to trend H and H and follow up with appropriate servi ce for a GI bleed workup. 2.Avoid all NSAIDs and renal dose all medications and minimize iodinated contrast exposure. SE/MODL Voice ID: [id number] Report ID: [id number]
[2019-09-14] MEDS: APIXABAN 2.5 MG TABLET PO SCH (22:25)
[2019-09-14] MEDS: MELATONIN 3 MG TABLET PO SCH (22:27)
[2019-09-14] MEDS: CALCIUM CARBONATE CHEW 500MG TAB PO SCH (22:35)
[2019-09-14] MEDS: SENOSIDES 8.6 MG TAB PO SCH (22:36)
[2019-09-15] MEDS: METOPROLOL TAR 25 MG TAB PO SCH ×2 (06:05→17:19)
[2019-09-15 07:05] VITALS: BMI 29.4
[2019-09-15] MEDS: POLYETHYL GLY 3350 17 GM/DOSE PO SCH (08:54)
[2019-09-15] MEDS: CHOLESTYRAMINE/ASP 4 GM/PKT PO SCH ×2 (08:54→21:51)
[2019-09-15] MEDS: Meropenem 500 MG in NA CHLORIDE 0.9% 100 ML IV SCH ×2 (08:54→21:51)
[2019-09-15] MEDS: ZINC SULFATE 220 MG CAP PO SCH ×2 (08:54→21:51)
[2019-09-15] MEDS: PYRIDOXINE (VIT B6) 50 MG TAB PO SCH (08:55)
[2019-09-15] MEDS: SODIUM BICARB 325 MG TAB PO SCH ×3 (08:55→17:18)
[2019-09-15] MEDS: VITAMIN D 5,000 UNIT CAP PO SCH (08:55)
[2019-09-15] MEDS: CALCIUM CARBONATE CHEW 500MG TAB PO SCH ×3 (08:55→21:51)
[2019-09-15] MEDS: AMLODIPINE 5 MG TAB PO SCH (08:55)
[2019-09-15] MEDS: HALOBETASOL PROPIONATE TOP SCH (08:56)
[2019-09-15] MEDS: PANTOPRAZOLE 40 MG INJ IVP SCH ×2 (08:56→21:51)
[2019-09-15] MEDS: DOCUSATE NA 100 MG CAP PO SCH ×2 (08:56→21:51)
[2019-09-15] MEDS: FLUCONAZOLE 100 MG TAB PO SCH (08:56)
[2019-09-15] MEDS: CALCITROL 0.25 MCG CAP PO SCH (08:56)
[2019-09-15] MEDS: FOLIC ACID 1 MG TABLET PO SCH (08:56)
[2019-09-15] MEDS: APIXABAN 2.5 MG TABLET PO SCH (08:57)
[2019-09-15] MEDS: SILVER SULFADIAZINE 1% 25 GM TOP SCH (09:00)
[2019-09-15] MEDS: COLLAGENASE 30 GM OINTMENT TOP SCH (09:00)
--- NOTE | 2019-09-15 11:30 | PN ---
Date of Progress Note: 09/14/2019 Mr. Pardo remains in rather guarded condition. 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 His Eliquis now is on hold. His Lasix is on hold. He has received IV albumin, p.o. bicarbonate, transfusion, trying to improve nutrition. He remains anemic with the last hemoglobin of 7.3. His c reatinine is 3.49. His bicarb is 14. His albumin is 2.1. His potassium is 3.1; that is being suppl emented. He has hypertension that is fairly well controlled. He has dyslipidemia, coronary artery d isease, recent pneumonia. He has cam esophagitis, sacral wounds, cystitis. Nephrology is involv ed in his care. Surgery is involved in his care. I do not have any further cardiac recommendations at this point. I agree with his present regimen. NB/MODL Voice ID: [id number] Report ID: [id number]
[2019-09-15 16:46] LABS: Basophils % 0.5 % (0-1.3); Hematocrit 27.2 % (39.6-49.0); MPV 8.5 fL (7.6-11.3); RBC Red Blood Cell Count 3.13 M/uL (4.33-5.43)
[2019-09-15 16:53] LABS: Potassium 4.3 mmol/L (3.5-5.1)
--- NOTE | 2019-09-15 17:40 | P.PN ---
Subjective Date of Service: 09/15/19 Chief Complaint: Fatigue in the setting of severe anemia Subjective: No new changes (Patient seen in bed resting. He has mild abdominal discomfort.) Physical Examination - Vital Signs Temperature: 98.7 F Blood Pressure: 111/59 Pulse: 87 Respirations: 18 Pulse Ox (%): 97 - Physical Exam General: Alert, In no apparent distress, Cooperative HEENT: Atraumatic, Normocephalic Neck: Supple Respiratory: Clear to auscultation bilaterally, Normal air movement, Diminished Cardiovascular: No edema, Normal pulses, Regular rate/rhythm, Normal S1 S2 Gastrointestinal: Normal bowel sounds, Soft and benign, Non-distended Integumentary: Tenderness/swelling, Erythema, Other (Distal lower extremity with bilateral skin discoloration) Assessment & Plan - Problems (Diagnosis) (1) Symptomatic anemia Current Visit: Yes Status: Acute (2) DIEGO (acute kidney injury) Current Visit: Yes Status: Acute (3) Cardiorenal syndrome with renal failure Current Visit: Yes Status: Acute (4) Hyperkalemia Current Visit: Yes Status: Acute (5) Acute on chronic diastolic (congestive) heart failure Current Visit: Yes Status: Acute (6) Moderate to severe pulmonary hypertension Current Visit: Yes Status: Acute (7) Mild aortic stenosis Current Visit: Yes Status: Acute (8) Pseudomonas urinary tract infection Current Visit: Yes Status: Acute (9) Pneumonia Current Visit: Yes Status: Acute Physician Review Additional Text: Assessment Patient is a 83-year-old male who was brought into the ER after he was found to have abnormal lab results at his [facility]. His Hb was 6.3 at the [facility]. Repeat hemoglobin in the ER was 7.1. Chart review revealed a baseline hb of 11. Chest x-ray in the ER also revealed mild evidence of pulmonary edema. He received 2 units of pRBC with IV lasix injection between transfusions with appropriate response but continues to have drops in Hb. Apixaban was discontinued. He underwent an EGD by GI on 09/12/2019 which showed no signs of active bleeding. However, it revealed esophageal ulcerations concerning for fungal infection. He was started on fluconazole. ID was also consulted as patient is also on meropenem for MDR pseudomonas UTI. His hospital course was complicated by worsening renal function. Nephrology recommended discontinuing diuresis since patient is preload dependent. His 2-D ECHO showed impaired ventricular relaxation, mild and moderate pulmonary HTN. Acute on chronic diastolic CHF Sympptomatic anemia Cardiorenal syndrome Moderate pulmonary HTN Mild aortic stenosis MDR pseudomonas UTI Pneumonia Plan: Patient is medically cleared, waiting for PICC line for outpatient meropenem infusion for MDR pseudomonas UTI SW/CM will need to help us to coordinate with his long-term regarding outpatient supplies and antibiotics Continue holding apixaban Discharge with diflucan for possible esophageal candidiasis PICC line for outpatient TX of MDR pseudomonas UTI (total duration: 10 days. Repeat UA after 7 days) Follow up repeat EGD in 6 weeks (with Dr. Mcqueen) Hold diuresis Continue sodium bicarb Surgery was consulted for multiple sacral wounds. Santyl for the sacrum, wet-to-dry with Santyl to the perineal wound and Silvadene to the lower extremity wounds, offloading air mattress, nutritional support, and vitamins. Monitor renal function
--- NOTE | 2019-09-15 19:38 | PN ---
Date of Progress Note: 09/15/2019 Subjective: Patient seen at bedside. No overnight events reported. The patient has been complainin g of some nausea while eating over the past 24 hours. He denies any fevers, chills, chest pain, shor tness of breath, vomiting, or diarrhea. Objective: Vital Signs: Blood pressure 111/59, pulse 87, temperature 98.7. General: No acute distress. Heart: Regular rate and rhythm. No murmurs, rubs, or gallops. Lungs: Grossly clear to auscultation. Abdomen: Soft, nontender, nondistended. Extremities: With trace to 1+ edema. Laboratory Data: No new labs from today. Labs from yesterday were reviewed. Current Medications: Reviewed. Impression: 1.Acute kidney injury on chronic kidney disease. 2.Metabolic acidosis. 3.Electrolyte abnormalities. 4.Pseudomonal urinary tract infection. 5.Suspected gastrointestinal bleed. Plan: Renal function as stated before has likely reached a new baseline. The patient continued to h ave acidosis and I will continue patient's IV fluids until labs are noted and IV fluids will be updat ed at that time. Avoid all NSAIDs. Avoid all contrast. No acute indication for renal replacement therapy at this time. Consider change in consistency of the patient's diet to help with the patient's nausea and/or titrate antiemetics. SE/MODL Voice ID: [id number] Report ID: [id number]
[2019-09-15] MEDS: MELATONIN 3 MG TABLET PO SCH (21:51)
[2019-09-15] MEDS: SENOSIDES 8.6 MG TAB PO SCH (21:51)
[2019-09-16] MEDS: METOPROLOL TAR 25 MG TAB PO SCH ×2 (06:35→16:51)
[2019-09-16] MEDS: HALOBETASOL PROPIONATE TOP SCH (09:00)
[2019-09-16] MEDS: PANTOPRAZOLE 40 MG INJ IVP SCH (09:34)
[2019-09-16] MEDS: ZINC SULFATE 220 MG CAP PO SCH (09:34)
[2019-09-16] MEDS: POLYETHYL GLY 3350 17 GM/DOSE PO SCH (09:34)
[2019-09-16] MEDS: CALCITROL 0.25 MCG CAP PO SCH (09:34)
[2019-09-16] MEDS: SODIUM BICARB 325 MG TAB PO SCH ×3 (09:35→16:50)
[2019-09-16] MEDS: FOLIC ACID 1 MG TABLET PO SCH (09:35)
[2019-09-16] MEDS: PYRIDOXINE (VIT B6) 50 MG TAB PO SCH (09:35)
[2019-09-16] MEDS: CHOLESTYRAMINE/ASP 4 GM/PKT PO SCH (09:35)
[2019-09-16] MEDS: FLUCONAZOLE 100 MG TAB PO SCH (09:36)
[2019-09-16] MEDS: CALCIUM CARBONATE CHEW 500MG TAB PO SCH ×2 (09:36→13:05)
[2019-09-16] MEDS: AMLODIPINE 5 MG TAB PO SCH (09:36)
[2019-09-16] MEDS: DOCUSATE NA 100 MG CAP PO SCH (09:36)
[2019-09-16] MEDS: VITAMIN D 5,000 UNIT CAP PO SCH (09:36)
[2019-09-16] MEDS: COLLAGENASE 30 GM OINTMENT TOP SCH (09:37)
[2019-09-16] MEDS: SILVER SULFADIAZINE 1% 25 GM TOP SCH (09:38)
--- NOTE | 2019-09-16 10:51 | P.DS ---
Admission Date: 09/10/19 Discharge Date: 09/16/19 Primary Care Provider: Alf Disposition: TRANSFER TO SKILLED NURSING Discharge Condition: GOOD Reason for Admission: Fatigue in the setting of severe anemia Consultations: Nephrology-Dr. Bruno GI-Dr. Mcqueen Surgery-Dr. Hurst Procedures: CT Scan: FINDINGS: Small bilateral pleural effusions.Cholecystectomy clips. Heavy atherosclerosis. The liver, spleen, pancreas, adrenal glands are within normal limits for a limited non-contrast examination.3 cm benign-appearing left renal cyst. Small caliceal calculi present in both kidneys without hydronephrosis. No bowel obstruction, free air, free fluid or abscess. Scattered diverticulosis coli. The appendix is not identified as a discrete structure, however, no secondary findings of appendicitis are identified. Moderate lumbar spondylosis.Moderate fat containing left inguinal hernia. IMPRESSION: No acute finding is demonstrated on limited noncontrast study. Endoscopy: Surgeon: Estuardo Mcqueen MD Procedure: Esophagogastroduodenoscopy. Indication For Procedure: Gradual drop in hemoglobin, rule out upper GI source of bleeding and chronic anemia. Plan For Anesthesia: Monitored anesthesia care. Complexity: High due to patient's comorbidities. Findings: Esophagus: No gross lesion in the upper and mid esophagus. However, in the distal esophagus, there was evidence of whitish plaques typically consistent with cam esophagitis. Also seen was mucosal inflammation and some ulceration consistent with LA grade C esophagitis with granularity. Biopsies were taken from the distal esophagus. Stomach: Mild to moderate patchy area with erythema seen in the body and antrum. Complete visualization of the fundus and upper body was not possible due to some remnant food, but no gross lesion was visualized. Antral and body biopsies were taken. Duodenum: The bulb and second portion appeared normal. Biopsies taken from the second portion for the anemia to rule out celiac disease. Complications: None. Tolerance To Anesthesia: Excellent. Postoperative Diagnosis: Suspected candidal esophagitis, moderate to severe esophagitis with some ulceration but no active bleeding, abnormal esophageal mucosa, gastritis. ECHO: Ejection fraction 50% LEFT VENTRICULAR WALL MOTION: NORMAL EJECTION FRACTION DECREASED LEFT VENTRICULAR COMPLIANCE. DOPPLER/COLOR FLOW: MILD AORTIC STENOSIS AREA 1.6 CENTIMETERS SQUARED. MILD TRICUSPID REGURGITATION MODERATE PULMONARY HYPERTENSION. COMMENTS: DECREASED LEFT VENTRICULAR COMPLIANCE NORMAL EJECTION FRACTION. MILD AORTIC STENOSIS AREA 1.6 CENTIMETERS SQUARED. MODERATE PULMONARY HYPERTENSION RIGHT VENTRICULAR SYSTOLIC PRESSURE 54mmHg. 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 Patient is a [facility] resident. Patient found have a hemoglobin of 6.3. This was repeated in the emergency room. Repeat 7.1. Prior baseline hemoglobin 11. Chest x-ray revealed pulmonary edema. Patient admitted for further evaluation. Patient with underlying acute on chronic systolic CHF, acute on chronic renal failure and suspected UTI. Hospital Course: Patient admitted for abnormal lab. This was related to symptomatic anemia. GI was consulted to further evaluate. Patient required transfusion of blood. Hemoglobin stabilize. Patient had EGD by GI on 09/12/2019. No active signs of bleeding noted. Esophageal candidiasis, esophagitis and gastritis also noted. Patient was treated. His condition improved. Hemoglobin now stable. At discharge patient will continue with Protonix 40 mg twice daily. For his esophageal candidiasis patient will continue with Diflucan 100 mg daily for 14 days. Recommend follow up with GI in 1-2 weeks to follow up this hospitalization. GI recommends for repeat endoscopy in 6 weeks to further reassess the esophagitis. Recommend to recheck lab-CBC in 1 week to monitors progress. Patient will return to the [facility] at discharge. Patient also found to have pleural effusions related to acute on chronic diastolic CHF. Echocardiogram showed ejection fraction 50% with moderate pulmonary hypertension and mild aortic stenosis noted. Patient was seen and evaluated by Cardiology. Patient received some Lasix. At discharge Lasix has been discontinued. At discharge patient will continue with a 1500 cc per day fluid restriction and low-salt diet. Recommend follow up with cardiology in 1-2 weeks to follow up this hospitalization. Patient also found to have UTI. Culture was positive for Pseudomonas. At discharge patient will continue with Levaquin 250 mg daily for 7 days. Recommend to recheck urine culture after that time to monitor resolution. Patient with chronic urinary catheter. Recommend to replace catheter every month. Recommend follow up with urology as an outpatient to further monitor and address. Patient with acute on chronic renal disease stage II. Nephrology was consulted. Patient had some hyperkalemia. This was treated. During the course of his stay his renal function has remained stable. At discharge patient will continue with a 1500 cc per day fluid restriction. Recommend no further use of nonsteroidal anti-inflammatories medications wounds to be renally dose. At discharge patient will continue with current medications. Recommend follow up with nephrology in 1-2 weeks to follow up this hospitalization. Recommend to recheck lab-BMP in 1 week to monitor his progress. Patient with history of DVT to the upper extremity. Patient previously on Eliquis. This was discontinued during the course of his stay due to GI bleed. Will recommend to discontinue Eliquis entirely due to his GI bleed. This can be monitored as an outpatient. Patient with diabetes mellitus type 2. Patient uses insulin sliding scale. Recommend to continue with sliding scale as needed. Likely no need for medication as blood sugar remained stable. Recommend to maintain blood sugars less 140 fasting and less than 200 after meals. Patient with hypertension. Patient may continue with Norvasc 5 mg daily and metoprolol 25 mg 1 pill twice daily. Recommend to maintain blood pressures less 150/80. Recommend to hold blood pressure medication if systolic less than 110. Further adjustment can be done by PCP. Vital Signs/Physical Exam: Temp Pulse Resp BP Pulse Ox 97 F 73 16 108/57 L 98 09/16/19 08:00 09/16/19 09:36 09/16/19 08:00 09/16/19 09:36 09/16/19 08:00 General: Alert, In no apparent distress, Oriented x3, Cooperative HEENT: Atraumatic Neck: Supple Respiratory: Clear to auscultation bilaterally, Normal air movement Cardiovascular: Normal pulses, Regular rate/rhythm Gastrointestinal: Normal bowel sounds, Soft and benign, Non-distended Musculoskeletal: No erythema, No tenderness, No warmth Integumentary: No erythema, No warmth, No cyanosis Neurological: Normal speech, Normal strength at 5/5 x4 extr, Normal tone, Normal affect Urinary: Hill catheter Laboratory Data at Discharge: WBC 10.5 K/uL (4.3-10.9) 09/15/19 16:25 Hgb 9.0 g/dL (13.6-17.9) L 09/15/19 16:25 Hct 27.2 % (39.6-49.0) L 09/15/19 16:25 Plt Count 280 K/uL (152-406) D 09/15/19 16:25 PT 20.6 SECONDS (9.5-12.5) H 09/10/19 10:05 INR 1.77 09/10/19 10:05 Sodium 142 mmol/L (136-145) 09/16/19 04:17 Potassium 4.0 mmol/L (3.5-5.1) 09/16/19 04:17 BUN 76 mg/dL (7-18) H 09/16/19 04:17 Creatinine 3.34 mg/dL (0.55-1.3) H 09/16/19 04:17 Glucose 106 mg/dL (74-106) 09/16/19 04:17 Uric Acid 9.8 mg/dL (3.5-7.2) H 09/14/19 06:20 Phosphorus 5.7 mg/dL (2.5-4.9) H 09/12/19 04:20 Magnesium 1.7 mg/dL (1.8-2.4) L 09/14/19 06:20 Total Bilirubin 0.3 mg/dL (0.2-1.0) 09/13/19 04:44 AST 15 U/L (15-37) 09/13/19 04:44 ALT 20 U/L (12-78) 09/13/19 04:44 Alkaline Phosphatase 146 U/L (45-117) H 09/13/19 04:44 Lipase 60 U/L (73-393) L 09/10/19 10:05 Home Medications: Acetaminophen [Tylenol*] 2 tab PO Q4H PRN 09/10/19 Amlodipine [Norvasc*] 1 tab PO DAILY 09/10/19 Arginine/Ascorbate Sod/Rosio AC [Arginaid Powder] 1 packet PO BID 09/10/19 Ascorbic Acid [Vitamin C] 1 tab PO BID 09/10/19 Calcium Carbonate [Tums] 2 tab PO TID 09/10/19 Cholecalciferol (Vitamin D3) [Vitamin D3] 3 tab PO DAILY 09/10/19 Cholestyramine (with Sugar) [Cholestyramine Packet] 1 packet PO BID 09/10/19 Collagenase [Santyl Ointment*] 1 tatyana TOP DAILY 09/10/19 Darbepoetin Roddy in Polysorbat [Aranesp] 1 ml SQ SEECOM 09/10/19 Docusate [Colace Cap*] 1 tab PO BID 09/10/19 Folic Acid 1 tab PO DAILY 09/10/19 Halobetasol Propionate 1 tatyana TOP DAILY 09/10/19 Insulin Lispro [Humalog Kwikpen U-100] See Protocol SQ BID 09/10/19 Ipratropium/Albuterol Sulfate [Iprat-Albut 0.5-3(2.5) mg/3 ml] 1 amp IH Q6H PRN 09/10/19 Lactulose 30 ml PO PRN PRN 09/10/19 Melatonin 1 tab PO BEDTIME 09/10/19 Multivitamin [Multivitamins] 1 tab PO DAILY 09/10/19 Polyethylene Glycol 3350 [Miralax] 1 packet PO DAILY 09/10/19 Pyridoxine HCl [Vitamin B-6] 1 tab PO DAILY 09/10/19 Sennosides [Senna] 1 tab PO BEDTIME 09/10/19 Zinc Sulfate [Zinc Sulfate*] 1 cap PO BID 09/10/19 Calcitrol [Rocaltrol*] 0.5 mcg PO DAILY #30 cap 09/16/19 Fluconazole [Diflucan] 100 mg PO DAILY #14 tablet 09/16/19 Metoprolol Tartrate [Lopressor*] 25 mg PO BID 6AM 6PM #60 tab 09/16/19 Na Bicarb Tab [Sodium Bicarb 325 MG Tab*] 650 mg PO TIDWM #90 tab 09/16/19 Pantoprazole Sodium [Protonix] 1 tab PO BID #60 09/16/19 levoFLOXacin [Levaquin] 250 mg PO DAILY #7 tab 09/16/19 New Medications: Fluconazole [Diflucan] 100 mg PO DAILY #14 tablet levoFLOXacin [Levaquin] 250 mg PO DAILY #7 tab Metoprolol Tartrate [Lopressor*] 25 mg PO BID 6AM 6PM #60 tab Pantoprazole Sodium [Protonix] 1 tab PO BID #60 Calcitrol [Rocaltrol*] 0.5 mcg PO DAILY #30 cap Na Bicarb Tab [Sodium Bicarb 325 MG Tab*] 650 mg PO TIDWM #90 tab Patient Discharge Instructions: 1. Patient to be discharge to [facility]. 2. Patient admitted for abnormal lab. This was related to symptomatic anemia. GI was consulted to further evaluate. Patient required transfusion of blood. Hemoglobin stabilize. Patient had EGD by GI on 09/12/2019. No active signs of bleeding noted. Esophageal candidiasis, esophagitis and gastritis also noted. Patient was treated. His condition improved. Hemoglobin now stable. At discharge patient will continue with Protonix 40 mg twice daily. For his esophageal candidiasis patient will continue with Diflucan 100 mg daily for 14 days. Recommend follow up with GI in 1-2 weeks to follow up this hospitalization. GI recommends for repeat endoscopy in 6 weeks to further reassess the esophagitis. Recommend to recheck lab-CBC in 1 week to monitors progress. Patient will return to the [facility] at discharge. 3. Patient also found to have pleural effusions related to acute on chronic diastolic CHF. Echocardiogram showed ejection fraction 50% with moderate pulmonary hypertension and mild aortic stenosis noted. Patient was seen and evaluated by Cardiology. Patient received some Lasix. At discharge Lasix has been discontinued. At discharge patient will continue with a 1500 cc per day fluid restriction and low-salt diet. Recommend follow up with cardiology in 1-2 weeks to follow up this hospitalization. 4. Patient also found to have UTI. Culture was positive for Pseudomonas. At discharge patient will continue with Levaquin 250 mg daily for 7 days. Recommend to recheck urine culture after that time to monitor resolution. Patient with chronic urinary catheter. Recommend to replace catheter every month. Recommend follow up with urology as an outpatient to further monitor and address. 5. Patient with acute on chronic renal disease stage II. Nephrology was consulted. Patient had some hyperkalemia. This was treated. During the course of his stay his renal function has remained stable. At discharge patient will continue with a 1500 cc per day fluid restriction. Recommend no further use of nonsteroidal anti-inflammatories medications wounds to be renally dose. At discharge patient will continue with current medications. Recommend follow up with nephrology in 1-2 weeks to follow up this hospitalization. Recommend to recheck lab-BMP in 1 week to monitor his progress. 6. Patient with history of DVT to the upper extremity. Patient previously on Eliquis. This was discontinued during the course of his stay due to GI bleed. Will recommend to discontinue Eliquis entirely due to his GI bleed. This can be monitored as an outpatient. 7. Patient with diabetes mellitus type 2. Patient uses insulin sliding scale. Recommend to continue with sliding scale as needed. Likely no need for medication as blood sugar remained stable. Recommend to maintain blood sugars less 140 fasting and less than 200 after meals. 8. Patient with hypertension. Patient may continue with Norvasc 5 mg daily and metoprolol 25 mg 1 pill twice daily. Recommend to maintain blood pressures less 150/80. Recommend to hold blood pressure medication if systolic less than 110. Further adjustment can be done by PCP. Diet: Renal Activity: Fall precautions Time spent managing pt's care (in minutes): 55
[2019-09-16 11:09] VITALS: O2SAT 97
[2019-09-16] MEDS ORDERED: EPOETIN ALFA-EPBX 10,000 UNIT/ML VIAL SQ ONE (11:27)
[2019-09-16] MEDS ORDERED: levoFLOXacin 250 MG TAB PO SCH (13:00)
[2019-09-16 16:51] VITALS: BP 140/87
--- NOTE | 2019-09-16 18:14 | P.PN ---
Date of Service: 09/16/19 Vital Signs Temp Pulse Resp BP Pulse Ox 97.5 F 86 16 140/87 99 09/16/19 12:00 09/16/19 16:51 09/16/19 12:00 09/16/19 16:51 09/16/19 12:00 Microbiology Results 09/10/19 11:35 Catheterized Urine [place] Count - Final BETWEEN 10,000 & 100,000 CFU/ML 09/10/19 11:35 Catheterized Urine - Final Pseudomonas Aeruginosa Assessment/ Plan: Nephrology Doing well. +PO CPS stable without CP or SOB. No acute events overnight. Vitals, medications, blood work and imaging reviewed in the chart. General: Alert, In no apparent distress, Oriented x3, Cooperative HEENT: Atraumatic Neck: Supple Respiratory: Clear to auscultation bilaterally Cardiovascular: Regular rate/rhythm, Edema (Trace hip edema) Gastrointestinal: Soft and benign, Non-distended Musculoskeletal: No clubbing, No contractures Integumentary: No rashes, No cyanosis Neurological: Normal speech, Abnormal strength Blood work reviewed in the chart. Imagings Data: EXAM DESCRIPTION: RAD - Chest Single View - 09/11/2019 8:41 am CLINICAL HISTORY: Pulm edema COMPARISON: September 09 TECHNIQUE: AP portable chest image was obtained 09/11/2019 8:41 am . FINDINGS: Lung volumes are normal. Increasing alveolar opacification is present in the left upper lobe. No change to the left lung base or right lung base. Alveolar opacification is slightly increased in the right upper lobe. The asymmetry of lung parenchymal opacification would be atypical for pulmonary edema. This remains in etiology. However, bilateral upper lobe pneumonia should be considered. Heart size is upper normal. Vasculature within normal limits. No measurable pleural effusion and no pneumothorax. No acute bony abnormality seen. No acute aortic findings suspected. IMPRESSION: Developing left upper lobe alveolar opacification and to a lesser degree, right upper lobe opacification. Pulmonary edema has been diagnosed. However, this asymmetric pattern would not be typical. Bilateral pneumonia should be considered. EXAM DESCRIPTION: RAD - Chest Single View - 09/10/2019 10:06 am CLINICAL HISTORY: COUGH Chest pain. COMPARISON: CHEST PA AND LAT 2 VIEW dated 04/24/2013; CHEST PA AND LAT 2 VIEW dated 08/22/2011; CHEST PA AND LAT 2 VIEW dated 06/06/2011; CHEST SINGLE VIEW dated 09/23/2006 FINDINGS: Portable technique limits examination quality. Mild interstitial prominence is present throughout lungs likely representing mild interstitial pulmonary edema or interstitial pneumonia. The heart is upper limit normal in size. No displaced fractures. Echocardiogram 09.10.19 LEFT VENTRICULAR WALL MOTION: NORMAL EJECTION FRACTION DECREASED LEFT VENTRICULAR COMPLIANCE. DOPPLER/COLOR FLOW: MILD AORTIC STENOSIS AREA 1.6 CENTIMETERS SQUARED. MILD TRICUSPID REGURGITATION MODERATE PULMONARY HYPERTENSION. COMMENTS: DECREASED LEFT VENTRICULAR COMPLIANCE NORMAL EJECTION FRACTION. MILD AORTIC STENOSIS AREA 1.6 CENTIMETERS SQUARED. MODERATE PULMONARY HYPERTENSION RIGHT VENTRICULAR SYSTOLIC PRESSURE 54mmHg. Conclusions/Impression: A/ DIEGO suspicious for ATN. May be diuretic phase. Hyperkalemia/ Hypokalemia Acidosis CKD III with proteinuria. Baseline Cr ~1.6 Severe malnutritiion/ Hypoalbuminemia. Diastolic CHF, chronic. Aortic stenosis. Pulmonary HTN. Anemia in chronic illness. GI bleed. DM II with CKD. HTN with CKD/ CHF. Acute GNR Cystitis. P/ Continue current POC and Medications. Hold Lasix. Give Retacrit X1 dose. Transfuse as needed. Encourage nutrition. No NSAIDs. AM labs PRN. Daily weight. Case reviewed with Dr. Mejia.
[2019-09-16 19:49] VITALS: TEMP 98
== END 2019-09-16 17:14 | disposition home or self-care (01) | DRG 380 ==
LOC: ER 09:15 → 2ND 12:56
PROVIDERS: ADMIT Internal Medicine; ATTEND Family Medicine
PROC: 30233N1 Transfusion of Nonautologous Red Blood Cells into Peripheral Vein, Percutaneous Approach (ICD-10-PCS; principal; 2019-09-10)
PROC: 0DB28ZX Excision of Middle Esophagus, Via Natural or Artificial Opening Endoscopic, Diagnostic (ICD-10-PCS; 2019-09-12)
PROC: 0DB78ZX Excision of Stomach, Pylorus, Via Natural or Artificial Opening Endoscopic, Diagnostic (ICD-10-PCS; 2019-09-12)
DX: K22.10 Ulcer of esophagus without bleeding (principal); I50.33 Acute on chronic diastolic (congestive) heart failure; E43 Unspecified severe protein-calorie malnutrition; J18.9 Pneumonia, unspecified organism; N17.9 Acute kidney failure, unspecified; N39.0 Urinary tract infection, site not specified; B37.81 Candidal esophagitis; I13.0 Hypertensive heart and chronic kidney disease with heart failure and stage 1 through stage 4 chronic kidney disease, or unspecified chronic kidney disease; E87.2 Acidosis; D64.9 Anemia, unspecified; E87.5 Hyperkalemia; E11.22 Type 2 diabetes mellitus with diabetic chronic kidney disease; I27.20 Pulmonary hypertension, unspecified; I35.0 Nonrheumatic aortic (valve) stenosis; B96.5 Pseudomonas (aeruginosa) (mallei) (pseudomallei) as the cause of diseases classified elsewhere; Z86.718 Personal history of other venous thrombosis and embolism; Z79.01 Long term (current) use of anticoagulants; K29.70 Gastritis, unspecified, without bleeding; Z79.4 Long term (current) use of insulin; Z79.899 Other long term (current) drug therapy; N18.3 Chronic kidney disease, stage 3 (moderate); Z88.8 Allergy status to other drugs, medicaments and biological substances; Z68.29 Body mass index [BMI] 29.0-29.9, adult; I25.10 Atherosclerotic heart disease of native coronary artery without angina pectoris
CPT/HCPCS: 36415; 36430; 71045; 74176; 80048; 80053; 80076; 81001; 81003; 82043; 82570; 82947; 83690; 83735; 83880; 84100; 84300; 84484; 84550; 85014; 85018; 85025; 85610; 86850; 86900; 86901; 86922; 87077; 87086; 87088; 87186; 88305; 88312; 93005; 93306; 96374; 96375; 99285; C9113; J0171; J0456; J0696; J1940; J2370; J2704; J3475; J3590; J7030; J7040; P9016; P9047; Q5106

== ENCOUNTER 2019-10-04 13:12 | Inpatient (IN) | payer OTHER, MEDICARE ==
[2019-10-04] MEDS ORDERED: NA CHLORIDE 0.9% 2,000 ML ONE (14:16)
--- NOTE | 2019-10-04 14:32 | RAD REPORT ---
EXAM DESCRIPTION: Geraldo Single View10/04/2019 2:16 pm CLINICAL HISTORY: cough COMPARISON: Multiple prior exams FINDINGS: The lungs appear clear of acute infiltrate. The heart is normal size
[2019-10-04 15:05] LABS: Absolute Lymphocytes (CBC) 0.5 K/uL (0.7-4.9); Basophils % 0.2 % (0-1.3); Hematocrit 32.6 % (39.6-49.0); Lymphocytes % 3.4 % (15.3-44.8); MPV 8.7 fL (7.6-11.3); RBC Red Blood Cell Count 3.67 M/uL (4.33-5.43)
[2019-10-04 15:09] LABS: Protime INR 1.29
--- NOTE | 2019-10-04 15:50 | ER ---
Nurse's Notes [facility] Name: Celestino Pardo Jr Age: 83 yrs Sex: Male : 1935 Arrival Date: 10/04/2019 Time: 13:[address] Private MD: Filiberto Bruno Diagnosis: Vomiting;Abdominal tenderness;Unspecified kidney failure-chronic;Elevated white blood cell count;Anemia, unspecified;Hypotension;Severe sepsis;Hyperkalemia;Hypomagnesemia Presentation: 10/03 13:24 Chief complaint: Spouse and/or significant other states: sent by Dr Bruno after being sv discharged from rehab. c/o wheezing, dehydration, vomiting, decreased appetite, and abd pain. Coronavirus screen: Surgical mask placed on patient. Patient moved to private room, placed in contact and droplet isolation with eye protection until further assessment. Patient reports a cough. Patient reports shortness of breath or difficulty breathing. Patient denies measured and/or subjective temperature greater than 100.4F prior to today's visit. Patient denies travel on a cruise ship or to a country the [facility] currently lists as an affected area. Patient denies contact with known and/or suspected case of COVID-19. Ebola Screen: No symptoms or risks identified at this time. Risk Assessment: Do you want to hurt yourself or someone else? Patient reports no desire to harm self or others. Onset of symptoms was October 04, 2019. 13:24 Method Of Arrival: Wheelchair sv 13:24 Acuity: KARISSA 3 sv 13:28 Initial Sepsis Screen: Does the patient meet any 2 criteria? RR > 20 per min. HR > 90 sv bpm. Yes Does the patient have a suspected source of infection? Yes: Acute abdominal pain. Triage Assessment: 19:59 GI: Reports. ca1 Historical: - Allergies: 13:28 Ecotrin; sv - PMHx: 13:28 Anemia; aspiration pneumonia; Bronchitis; CAD; CHF; constipation; Dementia; Diabetes - sv IDDM; DVT LUE; DYSPHAGIA; E. Coli; GI Bleed; Hyperlipidemia; Hypertension; obstructive and reflux uropathy; pressure ulcers; pseudomonas; Renal Disease; - Immunization history:: Adult Immunizations. - Family history:: not pertinent. - Social history:: Smoking status: . Screenin:13 Abuse screen: Denies threats or abuse. Nutritional screening: No deficits noted. tw2 Tuberculosis screening: No symptoms or risk factors identified. Fall Risk Secondary diagnosis (15 points) impaired mobility. Assessment: 13:41 Reassessment: Code Sepsis called. sv 14:45 General: Appears uncomfortable, Behavior is cooperative, appropriate for age, flat. tw2 Pain: Denies pain. 14:45 Neuro: Level of Consciousness is awake, alert, obeys commands, Oriented to person. tw2 Cardiovascular: Denies chest pain, shortness of breath, Heart tones S1 S2 Patient's skin is warm and dry. Respiratory: Airway is patent Respiratory effort is even, unlabored, Respiratory pattern is regular, symmetrical, Breath sounds with crackles bilaterally. Breath sounds are diminished bilaterally. GI: No signs and/or symptoms were reported involving the gastrointestinal system. Abdomen is round non-distended, Bowel sounds present X 4 quads. : pt with catheter in place upon arrival to ER, martin drainage bag dated 09/30/2019, noted urine in drainage bag with sediment and cloudy in appearance. EENT: No signs and/or symptoms were reported regarding the EENT system. Derm: Skin is fragile, is thin, with poor turgor has skin tears on b/l bruising noted on upper extremities Skin is dry, Skin temperature is cool Parent/caregiver reports the patient having "pressure spots on him and he complains of his bottom hurting him". Musculoskeletal: Range of motion: limited in all extremities. 15:45 Reassessment: Patient appears in no apparent distress at this time. No changes from tw2 previously documented assessment. 16:00 Reassessment: Patient appears in no apparent distress at this time. repositions pt on em the left side, pillow placed under bottom, states he is slightly more comfortable. 16:15 Reassessment: Dr. Mejia at bedside at this time. tw2 19:13 Reassessment: Patient appears in no apparent distress at this time. No changes from ca1 previously documented assessment. Vital Signs: 13:28 BP 103 / 52; Pulse 100; Resp 24; Temp 97.5(O); Pulse Ox 100% ; sv 14:55 BP 92 / 50; Pulse 98; Resp 17; Pulse Ox 100% on R/A; tw2 15:13 Weight 83.91 kg (R); tw2 15:22 BP 92 / 44; Pulse 95; Resp 20; Pulse Ox 99% on R/A; tw2 15:45 BP 78 / 66; Pulse 91; Resp 19; Pulse Ox 99% on R/A; tw2 16:05 BP 94 / 49; Pulse 87; Resp 16; Pulse Ox 98% on R/A; em 16:45 BP 87 / 54; Pulse 88; Resp 17; Pulse Ox 99% on R/A; tw2 17:30 BP 79 / 61; Pulse 87; Resp 17; Pulse Ox 98% on R/A; tw2 18:06 BP 88 / 44; Pulse 85; Resp 17; Pulse Ox 98% on R/A; tw2 19:02 BP 95 / 58; Pulse 88; Resp 18 S; Pulse Ox 97% on R/A; ca1 14:55 provider notified tw2 ED Course: 13:16 Patient arrived in ED. mr 13:16 Filiberto Bruno DO is Private Physician. mr 13:24 Arm band placed on. sv 13:27 Triage completed. sv 13:43 Chau Berg MD is Attending Physician. tawanna 14:08 Casandra Crabtree RN is Primary Nurse. tw2 14:16 XRAY Chest (1 view) In Process Unspecified. EDMS 14:40 Bed in low position. Call light in reach. Side rails up X2. Adult w/ patient. Cardiac tw2 monitor on. Pulse ox on. NIBP on. Warm blanket given. Pillow given. Verbal reassurance given. 14:45 Initial lab(s) drawn, by me, sent to lab. First set of blood cultures drawn by me. dh3 Inserted saline lock: 20 gauge in right antecubital area, using aseptic technique. Blood collected. 15:00 Second set of blood cultures drawn by me. dh3 15:00 Inserted saline lock: 22 gauge in left antecubital area, using aseptic technique. Blood dh3 collected. 15:47 Chon Mejia DO is Hospitalizing Provider. tawanna 16:50 CT Stone Protocol In Process Unspecified. EDMS 18:09 No provider procedures requiring assistance completed. Patient admitted, IV remains in tw2 place. 18:10 Awaiting: ICU bed available after shift change. tw2 19:19 Report given to LUTHER Allen. tw2 Administered Medications: 15:45 Drug: NS 0.9% (30 ml/kg) 30 ml/kg Route: IV; Rate: bolus; Site: right antecubital; tw2 18:32 Follow up: IV Intake: 2500ml tw2 19:14 Follow up: Response: No adverse reaction; IV Status: Completed infusion; IV Intake: tw2 2500ml 16:04 Drug: Zosyn 2.25 grams Route: IVPB; Infused Over: 60 mins; Site: right antecubital; em 17:02 Follow up: Response: No adverse reaction; IV Status: Completed infusion tw2 17:00 Drug: Kayexalate 45 grams Route: PO; tw2 18:32 Follow up: Response: No adverse reaction tw2 17:05 Drug: Magnesium Sulfate 1 grams Route: IVPB; Infused Over: 1 hrs; Site: left tw2 antecubital; 18:05 Follow up: Response: No adverse reaction; IV Status: Completed infusion tw2 17:05 Drug: D50W 25 ml Route: IVP; Site: left antecubital; tw2 18:31 Follow up: Response: No adverse reaction tw2 Intake: 18:32 IV: 2500ml; Total: 2500ml. tw2 19:14 IV: 2500ml; Total: 5000ml. tw2 Outcome: 15:49 Decision to Hospitalize by Provider. tawanna 19:21 Condition: stable tw2 19:58 Admitted to ICU accompanied by nurse, accompanied by tech, via stretcher, room 8, with ca1 chart, Arnol Allen RN 19:58 Instructed on the need for admit. 19:59 Patient left the ED. ca1 Signatures: Dispatcher [employer] Anisha Dodson, RN Chau Carmichael MD MD cha Rivera, Mary mr Munoz, Edgar, RN Casandra Vergara RN RN [facility] Kylah Lyon [facility] Ammy Flannery RN RN ca1
--- NOTE | 2019-10-04 15:51 | EDPHYS ---
Physician Documentation [facility] Name: Celestino Pardo Jr Age: 83 yrs Sex: Male : 1935 Arrival Date: 10/04/2019 Time: 13:[address] Private MD: Filiberto Francisco ED Physician Chau Berg HPI: 10/03 15:21 This 83 yrs old Male presents to ER via Wheelchair with complaints of tawanna Vomiting, Dehydration. 15:21 The patient presents to the emergency department with nausea, vomiting, that is tawanna intermittent. Onset: The symptoms/episode began/occurred just prior to arrival, this morning. Possible causes: unknown. The symptoms are aggravated by nothing. Associated signs and symptoms: The patient has no apparent associated signs or symptoms. Associated signs and symptoms: Pertinent positives: anorexia. Severity of symptoms: At their worst the symptoms were mild moderate in the emergency department the symptoms are unchanged. 15:22 The patient has shortness of breath at rest. The patient presents with abdominal pain tawanna in the upper abdomen. Associated signs and symptoms: Pertinent positives: non-productive cough. Historical: - Allergies: 13:28 Ecotrin; sv - PMHx: 13:28 Anemia; aspiration pneumonia; Bronchitis; CAD; CHF; constipation; Dementia; Diabetes - sv IDDM; DVT LUE; DYSPHAGIA; E. Coli; GI Bleed; Hyperlipidemia; Hypertension; obstructive and reflux uropathy; pressure ulcers; pseudomonas; Renal Disease; - Immunization history:: Adult Immunizations. - Family history:: not pertinent. - Social history:: Smoking status: . ROS: 15:22 Constitutional: Negative for fever, chills, and weight loss, Eyes: Negative for injury, tawanna pain, redness, and discharge, ENT: Negative for injury, pain, and discharge, Neck: Negative for injury, pain, and swelling, Cardiovascular: Negative for chest pain, palpitations, and edema, Back: Negative for injury and pain, : Negative for injury, bleeding, discharge, and swelling, MS/Extremity: Negative for injury and deformity, Skin: Negative for injury, rash, and discoloration, Neuro: Negative for headache, weakness, numbness, tingling, and seizure, Psych: Negative for depression, anxiety, suicide ideation, homicidal ideation, and hallucinations, Allergy/Immunology: Negative for hives, rash, and allergies, Endocrine: Negative for neck swelling, polydipsia, polyuria, polyphagia, and marked weight changes, Hematologic/Lymphatic: Negative for swollen nodes, abnormal bleeding, and unusual bruising. 15:22 Respiratory: Positive for cough, wheezing, expiratory. 15:22 Abdomen/GI: Positive for abdominal pain, nausea and vomiting. Exam: 15:22 Constitutional: This is a well developed, well nourished patient who is awake, alert, tawanna and in no acute distress. Head/Face: Normocephalic, atraumatic. Eyes: Pupils equal round and reactive to light, extra-ocular motions intact. Lids and lashes normal. Conjunctiva and sclera are non-icteric and not injected. Cornea within normal limits. Periorbital areas with no swelling, redness, or edema. ENT: Nares patent. No nasal discharge, no septal abnormalities noted. Tympanic membranes are normal and external auditory canals are clear. Oropharynx with no redness, swelling, or masses, exudates, or evidence of obstruction, uvula midline. Mucous membranes moist. Neck: Trachea midline, no thyromegaly or masses palpated, and no cervical lymphadenopathy. Supple, full range of motion without nuchal rigidity, or vertebral point tenderness. No Meningismus. Chest/axilla: Normal chest wall appearance and motion. Nontender with no deformity. No lesions are appreciated. Cardiovascular: Regular rate and rhythm with a normal S1 and S2. No gallops, murmurs, or rubs. Normal PMI, no JVD. No pulse deficits. Back: No spinal tenderness. No costovertebral tenderness. Full range of motion. Male : Normal genitalia with no discharge or lesions. Skin: Warm, dry with normal turgor. Normal color with no rashes, no lesions, and no evidence of cellulitis. MS/ Extremity: Pulses equal, no cyanosis. Neurovascular intact. Full, normal range of motion. Psych: Awake, alert, with orientation to person, place and time. Behavior, mood, and affect are within normal limits. 15:22 Respiratory: the patient does not display signs of respiratory distress, Respirations: normal, Breath sounds: decreased breath sounds, rhonchi, that are mild, Respiratory rate: 20 15:52 ECG was reviewed by the Attending Physician. [facility] Vital Signs: 13:28 BP 103 / 52; Pulse 100; Resp 24; Temp 97.5(O); Pulse Ox 100% ; sv 14:55 BP 92 / 50; Pulse 98; Resp 17; Pulse Ox 100% on R/A; tw2 15:13 Weight 83.91 kg (R); tw2 15:22 BP 92 / 44; Pulse 95; Resp 20; Pulse Ox 99% on R/A; tw2 15:45 BP 78 / 66; Pulse 91; Resp 19; Pulse Ox 99% on R/A; tw2 16:05 BP 94 / 49; Pulse 87; Resp 16; Pulse Ox 98% on R/A; em 16:45 BP 87 / 54; Pulse 88; Resp 17; Pulse Ox 99% on R/A; tw2 17:30 BP 79 / 61; Pulse 87; Resp 17; Pulse Ox 98% on R/A; tw2 18:06 BP 88 / 44; Pulse 85; Resp 17; Pulse Ox 98% on R/A; tw2 19:02 BP 95 / 58; Pulse 88; Resp 18 S; Pulse Ox 97% on R/A; ca1 14:55 provider notified tw2 MDM: 13:43 Patient medically screened. tawanna 15:25 Data reviewed: vital signs, nurses notes, lab test result(s), EKG, radiologic studies, tawanna plain films. 15:49 Antibiotic administration: zosyn 2.25gm. Differential diagnosis: Anemia Nonspecific abd tawanna pain, viral gastroenteritis, gastroenteritis, pneumonia, pulmonary edema, reactive airway disease, Sepsis bowel obstruction, cholecystitis. Immunization status: Pneumococcal vaccine: Influenza vaccine: Data interpreted: installer helper: rate is 95 beats/min, Pulse oximetry: on room air is 99 %. Test interpretation: by ED physician or midlevel provider: ECG, plain radiologic studies. Counseling: I had a detailed discussion with the patient and/or guardian regarding: the historical points, exam findings, and any diagnostic results supporting the discharge/admit diagnosis, lab results, radiology results, the need for further work-up and treatment in the hospital. ED course: weak, known renal failure, sob, vomiting and ABD pain. dr francisco to hospittalist. 17:47 ED course: CT SCAN PANCREATITIS, mild, lipase elevated, no hydrnephrosis. [facility] 10/03 13:45 Order name: Basic Metabolic Panel; Complete Time: 17:01 [facility] 10/03 13:45 Order name: CBC with Diff [facility] 10/03 13:45 Order name: LFT's; Complete Time: 17:01 [facility] 10/03 13:45 Order name: Magnesium; Complete Time: 17:02 [facility] 10/03 13:45 Order name: NT PRO-BNP; Complete Time: 17:02 [facility] 10/03 13:45 Order name: PT-INR; Complete Time: 15:25 [facility] 10/03 13:45 Order name: Troponin (emerg Dept Use Only); Complete Time: 17:02 [facility] 10/03 13:45 Order name: Amylase, Serum; Complete Time: 17:02 [facility] 10/03 13:45 Order name: Blood Culture Adult (2) [facility] 10/03 13:45 Order name: Ckmb; Complete Time: 17:02 [facility] 10/03 13:45 Order name: CPK; Complete Time: 17:02 [facility] 10/03 13:45 Order name: Lactate; Complete Time: 16:33 [facility] 10/03 13:45 Order name: Lipase; Complete Time: 17:02 [facility] 10/03 13:45 Order name: Procalcitonin [facility] 10/03 13:45 Order name: XRAY Chest (1 view); Complete Time: 15:25 [facility] 10/03 13:45 Order name: Ptt, Activated; Complete Time: 15:25 [facility] 10/03 13:45 Order name: Urine Microscopic Only [facility] 10/03 13:45 Order name: Urine Culture [facility] 10/03 14:19 Order name: Flu; Complete Time: 15:25 [facility] 10/03 14:19 Order name: Strep; Complete Time: 15:25 [facility] 10/03 14:19 Order name: COVID-19 [facility] 10/03 15:04 Order name: Throat Culture [facility] 10/03 15:23 Order name: Glucose, Ancillary Testing; Complete Time: 15:25 [facility] 10/03 15:29 Order name: CT Stone Protocol; Complete Time: 17:02 [facility] 10/03 18:53 Order name: Manual Differential [facility] 10/03 13:45 Order name: EKG; Complete Time: 13:46 [facility] 10/03 13:45 Order name: Cardiac monitoring; Complete Time: 16:25 [facility] 10/03 13:45 Order name: EKG - Nurse/Tech; Complete Time: 16:25 [facility] 10/03 13:45 Order name: IV Saline Lock; Complete Time: 18:32 [facility] 10/03 13:45 Order name: Labs collected and sent; Complete Time: 16:25 [facility] 10/03 13:45 Order name: O2 Per Protocol; Complete Time: 16:25 [facility] 10/03 13:45 Order name: O2 Sat Monitoring; Complete Time: 16:25 [facility] 10/03 13:45 Order name: IV Saline Lock - Large Bore; Complete Time: 15:12 [facility] 10/03 13:45 Order name: Urine Dipstick-Ancillary (obtain specimen); Complete Time: 19:35 [facility] 10/03 15:33 Order name: Hill; Complete Time: 16:04 [facility] EC:52 Rate is 101 beats/min. Rhythm is regular. QRS [place] is Normal. [place] interval is prolonged tawanna at 220 msec. QRS interval is normal. QT interval is normal. No Q waves. T waves are Normal. No ST changes noted. Clinical impression: NSR w/ Non-specific ST/T Changes and 1st degree heart block. Interpreted by me. Reviewed by me. Administered Medications: 15:45 Drug: NS 0.9% (30 ml/kg) 30 ml/kg Route: IV; Rate: bolus; Site: right antecubital; tw2 18:32 Follow up: IV Intake: 2500ml tw2 19:14 Follow up: Response: No adverse reaction; IV Status: Completed infusion; IV Intake: tw2 2500ml 16:04 Drug: Zosyn 2.25 grams Route: IVPB; Infused Over: 60 mins; Site: right antecubital; em 17:02 Follow up: Response: No adverse reaction; IV Status: Completed infusion tw2 17:00 Drug: Kayexalate 45 grams Route: PO; tw2 18:32 Follow up: Response: No adverse reaction tw2 17:05 Drug: Magnesium Sulfate 1 grams Route: IVPB; Infused Over: 1 hrs; Site: left tw2 antecubital; 18:05 Follow up: Response: No adverse reaction; IV Status: Completed infusion tw2 17:05 Drug: D50W 25 ml Route: IVP; Site: left antecubital; tw2 18:31 Follow up: Response: No adverse reaction tw2 Disposition: 10/04/19 15:49 Hospitalization ordered by Chon Mejia for Inpatient Admission. Preliminary diagnosis are Vomiting, Abdominal tenderness, Unspecified kidney failure - chronic, Elevated white blood cell count, Anemia, unspecified, Hypotension, Severe sepsis, Hyperkalemia, Hypomagnesemia. - Bed requested for Intensive Care Unit. - Status is Inpatient Admission. ca1 - Condition is Fair. - Problem is new. - Symptoms have improved. Signatures: Dispatcher [employer] EDAnisha Golden RN RN sv Anderson, Corey, MD MD cha Munoz, Edgar, RN RN em Alfa Shultz, CENTRIFUGAL OPERATOR-C CENTRIFUGAL OPERATOR-Cla1 Casandra Crabtree RN RN tw2 Janet Peterson Ammy Flannery RN RN ca1 Corrections: (The following items were deleted from the chart) 15:12 13:45 Accucheck ordered. tawanna tw2 16:14 15:49 Hospitalization Ordered by Chon Mejia DO for Inpatient Admission. Preliminary tawanna diagnosis is Vomiting; Abdominal tenderness; Unspecified kidney failure - chronic; Elevated white blood cell count; Anemia, unspecified. Bed requested for Telemetry/MedSurg (Inpatient). Status is Inpatient Admission. Condition is Fair. Problem is new. Symptoms have improved. [facility] 16:35 16:14 10/04/2019 15:49 Hospitalization Ordered by Chon Mejia DO for Inpatient tawanna Admission. Preliminary diagnosis is Vomiting; Abdominal tenderness; Unspecified kidney failure - chronic; Elevated white blood cell count; Anemia, unspecified; Hypotension; Severe sepsis. Bed requested for Telemetry/MedSurg (Inpatient). Status is Inpatient Admission. Condition is Fair. Problem is new. Symptoms have improved. [facility] 17:40 16:35 10/04/2019 15:49 Hospitalization Ordered by Chon Mejia DO for Inpatient eb Admission. Preliminary diagnosis is Vomiting; Abdominal tenderness; Unspecified kidney failure - chronic; Elevated white blood cell count; Anemia, unspecified; Hypotension; Severe sepsis; Hyperkalemia; Hypomagnesemia. Bed requested for Telemetry/MedSurg (Inpatient). Status is Inpatient Admission. Condition is Fair. Problem is new. Symptoms have improved. [facility] 19:59 17:40 10/04/2019 15:49 Hospitalization Ordered by Chon Mejia DO for Inpatient ca1 Admission. Preliminary diagnosis is Vomiting; Abdominal tenderness; Unspecified kidney failure - chronic; Elevated white blood cell count; Anemia, unspecified; Hypotension; Severe sepsis; Hyperkalemia; Hypomagnesemia. Bed requested for Intensive Care Unit. Status is Inpatient Admission. Condition is Fair. Problem is new. Symptoms have improved. eb
[2019-10-04 16:25] LABS: Albumin 2.2 g/dL (3.4-5.0); Bilirubin Direct 0.2 mg/dL (0-0.2); Bilirubin Total 0.4 mg/dL (0.2-1.0); Magnesium 1.7 mg/dL (1.8-2.4); Protein, Total 6.8 g/dL (6.4-8.2); Troponin (Emerg Dept Use Only) 0.05 ng/mL (0.0-0.045)
[2019-10-04 16:27] LABS: Potassium 5.9 mmol/L (3.5-5.1)
[2019-10-04 16:44] LABS: CKMB Creatine Kinase MB 4.6 ng/mL (0.3-3.6)
[2019-10-04] MEDS ORDERED: SOD POLYSTYREN SUL 15 GM/60 ML UCUP ONE (16:51)
[2019-10-04] MEDS ORDERED: MAGNESIUM SULFATE 1 gm IVPB 1 GM/100 ML BAG IV ONE (16:51)
[2019-10-04] MEDS ORDERED: D50W 25 GM/50 ML SYRINGE/VIAL IV ONE (16:51)
--- NOTE | 2019-10-04 17:00 | RAD REPORT ---
EXAM DESCRIPTION: CT - Stone Protocol - 10/04/2019 4:50 pm CLINICAL HISTORY: Abdominal pain. COMPARISON: August 2019 TECHNIQUE: Computed axial tomography of the abdomen pelvis was obtained without oral or IV contrast. Lack of IV and oral contrast limits evaluation of solid organs, bowel, and vessels. Coronal reformat randall images were obtained and reviewed. All CT scans are performed using dose optimization technique as appropriate and may include automated exposure control or mA/KV adjustment according to patient size. FINDINGS: Small bilateral pleural effusions. Tiny nonobstructing bilateral renal calculi. Left renal cysts are unchanged. No hydronephrosis. A Hill catheter is present within the bladder. An ureteral calculus is not noted. A bladder calculus is not present. The liver, spleen, and adrenal appear grossly normal. Mild stranding adjacent to the pancreas. The pa ncreas is normal size A left inguinal hernia contains fat. A small amount of ascites. No evidence of diverticulitis. Vascular calcifications. Spondylosis involves lumbar spine resulting in spinal stenosis IMPRESSION: Tiny nonobstructing renal calculi Mild stranding adjacent the pancreas may indicate mild pancreatitis
--- NOTE | 2019-10-04 17:29 | P.HP ---
Certification for Inpatient Patient admitted to: Inpatient With expected LOS: >2 Midnights Patient will require the following post-hospital care: Fpc Practitioner: I am a practitioner with admitting privileges, knowledge of patient current condition, hospital course, and medical plan of care. Services: Services provided to patient in accordance with Admission requirements found in Title 42 Section 412.3 of the Code of Federal Regulations Patient History Date of Service: 10/04/19 Primary Care Provider: Dr. Bruno Reason for admission: Nausea, vomiting, poor oral intake History of Present Illness: 83-year-old male with history of chronic renal disease stage II, chronic diastolic CHF with ejection fraction 50% with noted moderate pulmonary hypertension and mild aortic stenosis, recurrent UTI, chronic sacral wound, GERD/esophagitis, diabetes mellitus type 2, and history of DVT with prior anti coagulation therapy. Most of the information came from a brother. The patient was hospitalized back in August for symptomatic anemia. Patient had EGD at that time showing esophagitis. The patient was transition to the residential. Since that time the patient has been at the residential and hospitalized for a chronic sacral wound. The patient was recently discharge from the residential. Since being discharge the patient has had poor oral intake. Some nausea and vomiting noted today with mild cough. No fever noted he apparently had some lab drawn about a week ago at the residential. It showed worsening of his renal function. The family decided to bring him to the hospital for further evaluation. In the ER patient appeared dehydrated. Blood pressure was low. Patient was given fluid bolus in the emergency room. White count 15.4, hemoglobin 10.3. Sodium 140, potassium 5.9. BUN of 159, bicarb 11. Creatinine 6.6 with a GFR of 8. Glucose 67. Lactic acid negative. BNP elevated. Lipase at 584. CT scan revealed mild stranding to the pancreas with mild pancreatitis. Bilateral small pleural effusions noted. Patient was started on IV antibiotic therapy. Patient was evaluated for COVID due to his risk factors. Patient admitted for further evaluation. When I saw the patient ER, he appeared stable. Blood pressure around 99 systolic. Patient able to converse an was appropriate. Patient did not appear septic at this time. Patient appeared more dehydrated. Allergies aspirin [From Ecotrin] Allergy (Verified 09/10/19 14:48) Itching/Hives/Rash Gxzawzi-Jrn-Zce Reductase Inhibitor Allergy (Verified 09/10/19 14:49) Itching/Hives/Rash Home medications list reviewed: Yes Home Medications: Acetaminophen [Tylenol*] 2 tab PO Q4H PRN 09/10/19 Amlodipine [Norvasc*] 1 tab PO DAILY 09/10/19 Arginine/Ascorbate Sod/Rosio AC [Arginaid Powder] 1 packet PO BID 09/10/19 Ascorbic Acid [Vitamin C] 1 tab PO BID 09/10/19 Calcium Carbonate [Tums] 2 tab PO TID 09/10/19 Cholecalciferol (Vitamin D3) [Vitamin D3] 3 tab PO DAILY 09/10/19 Cholestyramine (with Sugar) [Cholestyramine Packet] 1 packet PO BID 09/10/19 Collagenase [Santyl Ointment*] 1 tatyana TOP DAILY 09/10/19 Darbepoetin Roddy in Polysorbat [Aranesp] 1 ml SQ SEECOM 09/10/19 Docusate [Colace Cap*] 1 tab PO BID 09/10/19 Folic Acid 1 tab PO DAILY 09/10/19 Halobetasol Propionate 1 tatyana TOP DAILY 09/10/19 Insulin Lispro [Humalog Kwikpen U-100] See Protocol SQ BID 09/10/19 Ipratropium/Albuterol Sulfate [Iprat-Albut 0.5-3(2.5) mg/3 ml] 1 amp IH Q6H PRN 09/10/19 Lactulose 30 ml PO PRN PRN 09/10/19 Melatonin 1 tab PO BEDTIME 09/10/19 Multivitamin [Multivitamins] 1 tab PO DAILY 09/10/19 Polyethylene Glycol 3350 [Miralax] 1 packet PO DAILY 09/10/19 Pyridoxine HCl [Vitamin B-6] 1 tab PO DAILY 09/10/19 Sennosides [Senna] 1 tab PO BEDTIME 09/10/19 Zinc Sulfate [Zinc Sulfate*] 1 cap PO BID 09/10/19 Calcitrol [Rocaltrol*] 0.5 mcg PO DAILY #30 cap 09/16/19 Fluconazole [Diflucan] 100 mg PO DAILY #14 tablet 09/16/19 Metoprolol Tartrate [Lopressor*] 25 mg PO BID 6AM 6PM #60 tab 09/16/19 Na Bicarb Tab [Sodium Bicarb 325 MG Tab*] 650 mg PO TIDWM #90 tab 09/16/19 Pantoprazole Sodium [Protonix] 1 tab PO BID #60 09/16/19 levoFLOXacin [Levaquin] 250 mg PO DAILY #7 tab 09/16/19 - Past Medical/Surgical History Diabetic: Yes -: Diabetes mellitus type 2 -: Dementia -: History of GI bleed related to esophagitis -: History of DVT on prior anti coagulation -: CAD -: PVD -: Chronic diastolic CHF with recent ejection fraction 50% -: Moderate to severe pulmonary hypertension -: Mild aortic stenosis -: Recurrent UTI -: Sacral decubitus ulcer -: right leg surgery Psychosocial/ Personal History: Patient current lives at home. He was recently discharge from the residential. - Family History Mother -: Cancer Father -: Cancer - Social History Smoking Status: Unknown if ever smoked Alcohol use: No CD- Drugs: No Caffeine use: No Place of Residence: Home Review of Systems General: Weakness, Malaise, As per HPI Eyes: Unremarkable ENT: Unremarkable Respiratory: Cough, As per HPI Cardiovascular: Edema, As per HPI Gastrointestinal: Nausea, Vomiting, As per HPI Musculoskeletal: Pedal edema Integumentary: Unremarkable Neurological: Unremarkable Lymphatics: Unremarkable Physical Examination - Physical Exam General: Alert, In no apparent distress, Oriented x3, Cooperative HEENT: Atraumatic, Other (Dry mucous membranes) Neck: Supple Respiratory: Clear to auscultation bilaterally, Normal air movement (Clear anteriorly), Other (Mild crackles to the bases posteriorly) Cardiovascular: Normal pulses, Regular rate/rhythm Gastrointestinal: Normal bowel sounds, Soft and benign, Non-distended, No tenderness, No masses, No rebound, No guarding Integumentary: Tenderness/swelling (Some edema to the lower extremities), Other (Not able to visualize chronic sacral wound) Neurological: Normal speech, Normal strength at 5/5 x4 extr, Normal tone, Normal affect - Studies Laboratory Data (last 24 hrs) 10/04/19 14:35: PT 15.2 H, INR 1.29, APTT 31.6 10/04/19 14:35: WBC 15.4 H D, Hgb 10.3 L, Hct 32.6 L, Plt Count 297 10/04/19 14:35: Sodium 140, Potassium 5.9 H*, BUN 159 H D, Creatinine 6.67 H* D, Glucose 67 L, Magnesium 1.7 L, Total Bilirubin 0.4, AST 14 L, ALT 12, Alkaline Phosphatase 178 H, Amylase 90, Lipase 584 H Microbiology Data (last 24 hrs): 10/04/19 14:37 Nasopharnyx Coronavirus COVID-19 PCR - Final 10/04/19 14:37 Nasopharnyx Influenza Type A Antigen Screen - Final 10/04/19 14:37 Nasopharnyx Influenza Type B Antigen Screen - Final 10/04/19 14:37 Throat Group A Streptococcus Rapid Screen - Final Assessment and Plan - Plan Impression: Acute on chronic renal failure stage 5 with hyperkalemia suspect related to dehydration and poor oral intake Nausea and vomiting suspect related to mild pancreatitis Possible recurrent UTI with chronic Hill catheter will need to rule out sepsis Chronic sacral decubitus ulcer with possible cellulitis Chronic diastolic CHF GERD with history of esophagitis Chronic pleural effusions Diabetes mellitus type 2 Hypertension Anemia of chronic disease Plan: Acute on chronic renal failure stage 5 with hyperkalemia suspect related to de hydration and poor oral intake: Patient will be admitted to ICU for further evaluation and treatment. Patient given treatment for hyperkalemia in the emergency room. Case discussed with nephrology. Will continue monitor closely. Patient given IV fluid bolus for possible sepsis. Will continue with IV fluids. Will continue to monitor urine output and blood pressure. Patient may require further IV fluid bolus. Will discuss with machine lay out worker to reassess and monitor closely. Patient on IV antibiotic therapy-meropenem due to history of recurrent UTI and sacral decubitus. Patient with chronic Hill catheter. May need to replace and culture Hill catheter. Blood cultures obtained. Due to risk factors patient being evaluated for COVID but no evidence of an pneumonia. Will continue to monitor closely. Case discussed with brother. Advanced directives address. Patient is full code. Will start DVT prophylaxis-heparin. Will monitor hemoglobin. Nausea and vomiting suspect related to mild pancreatitis: Patient without nausea and vomiting at this time. Will provide her liquid diet. Will provide IV Protonix. Will continue to monitor levels closely. Possible recurrent UTI with chronic Hill catheter, will need to rule out sepsis: Need to rule out sepsis. Patient on IV meropenem. Patient with history of recurrent UTI with chronic Hill catheter. Will need to check and see when the last time the Hill catheter was replaced. This may need to be replaced and cultured. Urine and blood cultures obtained. Chronic sacral decubitus ulcer with possible cellulitis: Will consult wound care. Will have surgery evaluate wound. Brother reports patient had debridement within the past 6 months. Await recommendations by surgery. Chronic diastolic CHF: This appears stable at this time. Will monitor closely. Patient with chronic pleural effusions. GERD with history of esophagitis: Will provide IV Protonix. Chronic pleural effusions: Will monitor closely. Diabetes mellitus type 2: Will provide sliding scale. Hypertension: Hold blood pressure medication at this time. Anemia of chronic disease: Will monitor hemoglobin. Patient has received transfusions in the past. EGD done in August showed esophageal candidiasis, esophagitis and gastritis. Discharge Plan: Other (Skilled facility verses long-term acute care facility) Plan to discharge in: Greater than 2 days - Advance Directives Does patient have a Living Will: Yes Does patient have a Durable POA for Healthcare: Yes Time Spent Managing Pts Care (In Minutes): 65
[2019-10-04 18:52] LABS: Anisocytosis 1+; Blood Morphology Comment NOTED (NOT SEEN); Platelet Estimate ADEQ
[2019-10-04 18:53] LABS: Poikilocytosis SLIGHT
[2019-10-04] MEDS ORDERED: ACETAMINOPHEN 500 MG TAB PO PRN (20:24)
[2019-10-04] MEDS ORDERED: SODIUM CHLORIDE 0.9% 10ML INJ IV PRN (20:24)
[2019-10-04] MEDS ORDERED: NA CHLORIDE 0.9% 1,000 ML IV SCH (20:24)
[2019-10-04] MEDS ORDERED: Meropenem 1000 MG/VIAL IV SCH (21:00)
[2019-10-04] MEDS: INSULIN -REGULAR HUMAN 50 UNIT/0.5 ML ML SQ SCH (21:00)
[2019-10-04] MEDS: HEPARIN 5000 UNIT/ML 1 ML VIAL SQ SCH (21:01)
[2019-10-04 21:25] LABS: CKMB Creatine Kinase MB 4.7 ng/mL (0.3-3.6); Troponin I 0.05 ng/mL (0.0-0.045)
[2019-10-04] MEDS: NACHLORIDE 0.45% 1,000 ML IV SCH (22:45)
[2019-10-04] MEDS: ONDANSETRON 4 MG/2 ML VIAL IV PRN (22:47)
[2019-10-05 00:51] LABS: Urine Appearance CLOUDY; Urine Bacteria >50 /HPF (NONE SEEN); Urine Bilirubin NEGATIVE (NEG); Urine Blood 3+ (NEG); Urine Color YELLOW; Urine Culture Reflex Order REFLEXED; Urine Glucose NEGATIVE (NEG); Urine Protein 3+ (NEG); Urine RBC 20-50 /HPF (NONE SEEN); Urine Urobilinogen 0.2 mg/dL (0.2-1.0); Urine pH 5.5 (5.0-7.0)
[2019-10-05 00:52] LABS: Urine Mucus 2+ /HPF (NONE SEEN)
[2019-10-05] MEDS: NACHLORIDE 0.45% 1,000 ML IV SCH (04:39)
[2019-10-05 05:34] LABS: Albumin 1.7 g/dL (3.4-5.0); Bilirubin Total 0.3 mg/dL (0.2-1.0); Phosphorus 7.4 mg/dL (2.5-4.9); Protein, Total 5.3 g/dL (6.4-8.2); Uric Acid 12.3 mg/dL (3.5-7.2)
[2019-10-05 05:35] LABS: CKMB Creatine Kinase MB 4.7 ng/mL (0.3-3.6); Troponin I 0.05 ng/mL (0.0-0.045)
[2019-10-05 05:55] LABS: Magnesium 1.6 mg/dL (1.8-2.4); Potassium 5.8 mmol/L (3.5-5.1); Thyroid Stimulating Hormone 6.96 uIU/mL (0.360-3.740)
[2019-10-05 07:25] LABS: Absolute Lymphocytes (CBC) 0.7 K/uL (0.7-4.9); Basophils % 0.3 % (0-1.3); Hematocrit 24.8 % (39.6-49.0); Lymphocytes % 5.5 % (15.3-44.8); RBC Red Blood Cell Count 2.75 M/uL (4.33-5.43)
[2019-10-05] MEDS: INSULIN -REGULAR HUMAN 50 UNIT/0.5 ML ML SQ SCH ×4 (07:30→21:00)
[2019-10-05 07:50] LABS: UR MICROALBUMIN 50.5 mg/dL (< 1.9)
[2019-10-05] MEDS ORDERED: SODIUM BICARB 50 MEQ/50ML VIAL IV ONE (08:00)
[2019-10-05] MEDS ORDERED: MAGNESIUM SULFATE 1 gm IVPB 1 GM/100 ML BAG IV ONE ×2 (08:00→20:51)
[2019-10-05] MEDS: Meropenem 500 MG in NA CHLORIDE 0.9% 100 ML IV SCH ×2 (08:48→20:52)
[2019-10-05] MEDS ORDERED: PANTOPRAZOLE 40 MG INJ IVP SCH (09:00)
[2019-10-05] MEDS ORDERED: CLOPIDOGREL 75 MG TABLET PO SCH (09:00)
[2019-10-05] MEDS ORDERED: MIDODRINE HCL 5 MG TABLET PO PRN (10:00)
--- NOTE | 2019-10-05 10:03 | P.PN ---
Subjective Date of Service: 10/05/19 Primary Care Provider: Dr. Bruno Chief Complaint: Nausea, vomiting, poor oral intake Subjective: Doing well (Patient alert. Patient feels slightly better) Physical Examination - Vital Signs Temperature: 97 F Blood Pressure: 105/59 Pulse: 86 Respirations: 15 Pulse Ox (%): 100 - Physical Exam General: Alert, Cooperative, Disheveled HEENT: Atraumatic Neck: Supple Respiratory: Clear to auscultation bilaterally, Normal air movement Cardiovascular: Normal pulses, Regular rate/rhythm Gastrointestinal: Normal bowel sounds, Soft and benign, Non-distended, No tenderness, No masses, No rebound, No guarding Neurological: Normal speech, Normal strength at 5/5 x4 extr, Normal affect - Studies Laboratory Data (last 24 hrs) 10/04/19 14:35: PT 15.2 H, INR 1.29, APTT 31.6 10/04/19 14:35: WBC 15.4 H D, Hgb 10.3 L, Hct 32.6 L, Plt Count 297 10/04/19 14:35: Sodium 140, Potassium 5.9 H*, BUN 159 H D, Creatinine 6.67 H* D, Glucose 67 L, Magnesium 1.7 L, Total Bilirubin 0.4, AST 14 L, ALT 12, Alkaline Phosphatase 178 H, Amylase 90, Lipase 584 H Microbiology Data (last 24 hrs): 10/04/19 14:37 Nasopharnyx Coronavirus COVID-19 PCR - Final 10/04/19 14:37 Nasopharnyx Influenza Type A Antigen Screen - Final 10/04/19 14:37 Nasopharnyx Influenza Type B Antigen Screen - Final 10/04/19 14:37 Throat Group A Streptococcus Rapid Screen - Final Medications List Reviewed: Yes Assessment & Plan Discharge Plan: Other (assisted facility) Plan to discharge in: Greater than 2 days Physician Review Additional Text: Impression: Acute on chronic renal failure stage 5 with hyperkalemia suspect related to dehydration and poor oral intake Nausea and vomiting suspect related to mild pancreatitis Possible recurrent UTI with chronic Hill catheter will need to rule out sepsis Chronic sacral decubitus ulcer with possible cellulitis Chronic diastolic CHF GERD with history of esophagitis Chronic pleural effusions Diabetes mellitus type 2 Hypertension Anemia of chronic disease History orthostatic hypotension Plan: Acute on chronic renal failure stage 5 with hyperkalemia suspect related to dehydration and poor oral intake: Patient remains in ICU. Continue IV fluids. Nephrology to further adjust. Patient also on antibiotic therapy for UTI. Patient with history of recurrent UTI. Blood and urine cultures obtained. Will have surgery evaluate chronic sick or decubitus. Review and restarted his medications. Will monitor hemoglobin. Patient may require hemoglobin if hemoglobin below 7.0. Will discuss further with nephrology and surgery. Will also discuss with his brother who has medical power of privacy attorney. Will restart midodrine. Hold blood pressure medications at this time. Patient also has BPH. Will restart his medication. Reviewed home medication. Patient no longer taking Plavix. This will be discontinued. Continue DVT prophylaxis-heparin. Nausea and vomiting suspect related to mild pancreatitis: Patient without nausea, vomiting or abdominal pain. Will recheck lipase. Will advance diet as tolerated. Restart home medication. Continue Protonix. Possible recurrent UTI with chronic Hill catheter, will need to rule out sepsis: Patient on antibiotic therapy at this time. Patient with chronic Hill catheter and recurrent UTI. Await blood and urine culture results. Chronic sacral decubitus ulcer with possible cellulitis: Will consult wound care. Will have surgery evaluate wound. Brother reports patient had debridement within the past 6 months. Await recommendations by surgery. Chronic diastolic CHF: This appears stable at this time. Will monitor closely. Patient with chronic pleural effusions. GERD with history of esophagitis: Continue medication Chronic pleural effusions: Will monitor closely. Diabetes mellitus type 2: Will obtain A1c. Continue sliding scale. Hypertension: Hold blood pressure medication at this time. Anemia of chronic disease: Will monitor hemoglobin. Patient has received transfusions in the past. EGD done in August showed esophageal candidiasis, esophagitis and gastritis. History of orthostatic hypotension: Will start midodrine Time Spent Managing Pts Care (In Minutes): 55
[2019-10-05] MEDS: ASCORBIC ACID 500 MG TABLET PO SCH (11:36)
[2019-10-05] MEDS: TAMSULOSIN 0.4 MG SR CAP PO SCH ×2 (11:36→20:52)
[2019-10-05] MEDS: CALCITROL 0.25 MCG CAP PO SCH (11:37)
[2019-10-05 11:58] LABS: Hematocrit 26.2 % (39.6-49.0)
--- NOTE | 2019-10-05 12:19 | EKG ---
Test Date: 2019-10-04 Test Time: 14:35:13 Personal Banking Assistant: TRAVIS MEASUREMENT RESULTS: Intervals: Rate: 101 CA: 220 QRSD: 124 QT: 368 QTc: 477 [place]: P: 63 CA: 220 QRS: -20 T: 119 INTERPRETIVE STATEMENTS: Sinus tachycardia with 1st degree AV block Left bundle branch block Abnormal ECG Compared to ECG 09/10/2019 09:28:02 Sinus rhythm no longer present Atrial premature complex(es) no longer present Electronically Signed On 10-05-19 12:17:49 CDT by Johnnie Mccord
[2019-10-05] MEDS ORDERED: GLUCAGON 1 MG/VIAL IM PRN (12:52)
[2019-10-05] MEDS ORDERED: D50W 25 GM/50 ML SYRINGE/VIAL IV PRN (12:52)
--- NOTE | 2019-10-05 12:55 | CON ---
Date of Consultation: 10/05/2019 Brief History Of Present Illness: Patient is an 83-year-old male with a history of CKD stage II, chronic diastolic CHF with ejection fraction of approximately 50% with [id number] pulmonary hypertension, mild aortic stenosis, recurrent urinary tract infections, chronic sacral wound, GERD, esophagitis, diabetes, history of DVT with prior anticoagulation therapy who came into the hospital with symptomatic anemia in the past, had an EGD as recent as August which is showing esophagitis. He had had chronic sacral wounds before, treated with nonoperative management. Patient is unable to contribute significant information to his past medical history. As such, the majority of the information was obtained from the chart. Past Medical History: Significant for diabetes, dementia, GI bleed, esophagitis, DVT, coronary artery disease, peripheral vascular disease, diastolic CHF, [id number] pulmonary hypertension, mild aortic stenosis, recurrent urinary tract infections, sacral ulcers. Past Surgical History: He has had right leg surgery by report. He lives at home, recently discharged from the senior care. Allergies: TO ASPIRIN, HMG-COA REDUCTASE INHIBITOR/STATINS. Medications: Tylenol, Norvasc, Arginaid powder, vitamin C, Tums, vitamin D3, cholestyramine, Santyl, Aranesp, Colace, folic acid, halobetasol, Humalog, albuterol, lactulose, melatonin, multivitamin, MiraLAX, vitamin B6, senna, zinc sulfate, , Diflucan, Lopressor, sodium bicarbonate tablets, Protonix, Levaquin. Review of Systems: Ten point review of systems unable to obtain as patient appears somewhat confused during my examination. Physical Examination: Vital Signs: At the time of my examination, blood pressure 105/59, pulse 86, respiratory rate 15, temperature 97.0. General: He is awake and alert, but appears confused but conversive. HEENT: Normocephalic, otherwise sclerae anicteric. Mucous membranes moist. Oropharynx clear. Neck: Supple. No JVD. Chest: Normal expansion and excursion. Cardiovascular: Regular rate and rhythm. Pulmonary: Clear to auscultation bilaterally. Abdomen: Soft, nontender. Extremities: Bilateral lower extremities examined. He does have some pressure type ulcers on the bilateral gastrocnemius area bilaterally with no open wounds at this area, but there is some minimal skin breakdown. Back: Focused examination of his back shows a stage I sacral decubitus ulcer without any evidence of purulence or drainable collections. There is minimal skin breakdown of this area and no significant depth to this area. He has a 5cm tunnelling perineal wound at the base of his scrotum. No purulence. Laboratory Data: His white blood cell count is 12.7, hemoglobin 7.9, hematocrit of 24.8, platelet count is 220. His neutrophils are 90%. His sodium is 141, potassium 5.8, chloride 116, carbon dioxide is 10, BUN , creatinine 6.3, glucose is 77. Uric acid is 12.3, calcium is 7.7, phos is 7.4, magnesium 1.6. AST 20, ALT 11, alkaline phosphatase of 146. Creatine kinase is 92. CK- MB is 4.7. Troponin 0.05 x3 checks. ProBNP is 20,022. He had imaging performed, included a chest x-ray and abdomen CT. Chest x-ray officially read as lungs appear clear of the acute infiltrate. Heart is normal size. He had a CT scan of the abdomen and pelvis, which shows tiny nonobstructing renal calculi, mild stranding adjacent to pancreas which may indicate mild pancreatitis. Assessment And Plan: This is an 83-year-old male who comes in with multiple medical issues and a stage I sacral decubitus ulcer, perineal wound, and minimal pressure effect to bilateral lower extremities. 1. Continue medical management. 2. Antibiotic coverage. 3. Pressure reduction strategies for both bilateral lower extremities with air casts and frequent rotation. 4. Will point DuoDerm to be placed on the patient's sacral decubitus ulcer and frequent rotations every 2 hours. Daily dressing changes to perineal wound with 0.5cm plain packing, then transition to santyl, collagen / amira. We will also recommend air mattress/sand bed if available. I have explained the risks, benefits, and alternatives of above stated plan to the patient. He agrees to proceed as indicated. VARGAS/NILO Voice ID: [id number] Report ID: [id number] ARIA
[2019-10-05] MEDS ORDERED: INSULIN -REGULAR HUMAN 50 UNIT/0.5 ML ML IV ONE (13:15)
[2019-10-05] MEDS: HEPARIN 5000 UNIT/ML 1 ML VIAL SQ SCH ×2 (13:29→20:52)
[2019-10-05] MEDS: CHOLESTYRAMINE/ASP 4 GM/PKT PO SCH ×2 (13:29→22:57)
[2019-10-05] MEDS ORDERED: D5W 1,000 ML with NA BICARB 8.4% 150 MEQ IV SCH ×2 (13:30)
[2019-10-05] MEDS ORDERED: ALBUTEROL 2.5 MG/3 ML NEB SOL NEB ONE (14:00)
[2019-10-05] MEDS ORDERED: SOD POLYSTYREN SUL 15 GM/60 ML UCUP PO ONE (14:00)
[2019-10-05] MEDS ORDERED: D50W 25 GM/50 ML SYRINGE/VIAL IV ONE (14:00)
--- NOTE | 2019-10-05 14:19 | CON ---
Date of Consultation: 10/05/2019 Reason For Consultation: Acute kidney injury on chronic kidney disease. History Of Present Illness: Mr. Pardo is an 83-year-old male with past medical history of hypert ension, diabetes mellitus, heart failure with preserved EF, CKD 3, lower extremity lymphedema with ul cers, chronic sacral decubitus ulcers, and bladder cancer with recent hospitalizations for anemia and perineal cyst excisions over the past 6 months who has had multiple admissions for multiple acute co morbidities over that side, who presented to the hospital this time with altered mental status and fa tigue. The patient was recently at a local long-term facility, however, the patient was taken out of the prison per reporting by family. He was home for less than 48 hours and after notici ng his condition was brought to the emergency room. Our consultation was requested for acute kidney injury. Patient had a BUN and creatinine of 159/6.67 on admission. He had hyperkalemia with potassi um of 5.9 and anion gap metabolic acidosis with a carbon dioxide level of 11. He was transferred her e to the emergency room, his altered mental status continued, but slowly started improving after nume vamshi IV fluid boluses. His acute treatment plan was reviewed. There were no nephrotoxins noted. Th ere were no iodinated contrast studies. Since he has been in the ICU, he has overall remained stable . He had a Hill catheter in place and his urine output has been oliguric. He is coherent and was able to converse with me. He is answering questions appropriately at this giuseppe e. For hyperkalemia management the patient did receive 1 dose of Kayexalate. Past Medical History: As per HPI. Physical Examination: Vital Signs: Blood pressure 105/59, pulse 86, temperature 97. General: No acute distress. Elderly. Heart: Regular rate and rhythm. No murmurs, rubs, or gallops. Lungs: No crepitations noted, however, there are expiratory rhonchi in all lung montes. Abdomen: Soft, nontender, nondistended. Extremities: With no significant edema. Hill catheter was emptied, however, patient does have cloudy sediment in the tubing. Laboratory Data: Serum chemistry; sodium 141, potassium 5.8, chloride 116, CO2 10, BUN 159, creatini ne 6.3, glucose 77, calcium 7.7, phosphorus 7.4, magnesium 1.6. Hepatic panel was noted. Albumin is 1.7, lipase 584 which improved to 299. Procalcitonin was elevated at 0.62. Troponin levels noted t o be elevated at 0.05, but stable. Lactic acid was 0.9. CBC showed hemoglobin 8.3, hematocrit 26.2, WBC count last measured was 12.7. UA taken last night, 3+ blood, 3+ leukocyte esterase, 20 to 50 rb c's, to many to count wbc's. Urine bacteria over 50 protein, microalbumin to creatinine ratio was al most 3 g. Microbiology data, rapid COVID testing was negative. Group A strep negative. Blood cultu res including wound cultures are all pending. Current Medications: Half NS 125 mL/h. Calcitriol was noted. Cholestyramine also noted. Meropenem 500 mg IV q.12. Magnesium had been supplemented. Remainder of medications were reviewed. Assessment: 1.Acute kidney injury on chronic kidney disease. 2.Hyperkalemia from renal failure. 3.Anion gap metabolic acidosis also from renal failure. 4.Altered mental status, improving. 5.Multiple electrolyte abnormalities. 6.Acute anemia. 7.Sepsis. 8.Possible non ST elevation myocardial infarction. 9.Deconditioning. 10.Decubitus and distal ulcers. Plan: Mr. Pardo at this time is not exhibiting symptoms of uremia. We will choose medical manag ement for the time being, however, the patient is agreeable to renal replacement therapy as the benef its and risks including sudden from hemodynamic collapse as well as cardiac arrhythmias and ble eding were discussed. The patient stated that he would be willing to undergo renal replacement thera py if absolutely necessary. At this time, we will change IV fluids from half-normal saline to bicarbonate based infusion. Hyperk alemia will be managed with low-dose Kayexalate as well as insulin, glucose, and beta agonist therapy to help with potassium exchange intracellularly. We will have to avoid all NSAIDs and avoid all con trast. Hill catheter noted to have sediment and I have recommended Hill catheter replacement at this time. Continue antibiotics. Continue to follow up cultures. I have also attempted to contact the patient's brother, . I have left a voicemail with wilbert curtis to update him on the condition given his status as legal power of staff attorney. This was approved by the patient. I will also attempt to contact the patient's once we have the correct contact info rmation. Time Spent: Critical care time spent over 70 minutes, which included assessments, multiple phone michael ls, formulating a plan of care, and following up on the patient here. GUNNAR Voice ID: [id number] Report ID: [id number]
[2019-10-05 18:53] LABS: Magnesium 1.7 mg/dL (1.8-2.4); Potassium 4.6 mmol/L (3.5-5.1)
[2019-10-06 06:34] LABS: Absolute Lymphocytes (CBC) 0.5 K/uL (0.7-4.9); Basophils % 0.3 % (0-1.3); Hematocrit 24.7 % (39.6-49.0); Lymphocytes % 6.5 % (15.3-44.8); MPV 9.1 fL (7.6-11.3); RBC Red Blood Cell Count 2.77 M/uL (4.33-5.43)
[2019-10-06 07:01] LABS: Albumin 1.7 g/dL (3.4-5.0); Bilirubin Total 0.3 mg/dL (0.2-1.0); Potassium 4.5 mmol/L (3.5-5.1); Protein, Total 5.4 g/dL (6.4-8.2)
[2019-10-06] MEDS: INSULIN -REGULAR HUMAN 50 UNIT/0.5 ML ML SQ SCH ×4 (07:30→20:59)
[2019-10-06] MEDS: PANTOPRAZOLE 40MG TABLET PO SCH (08:46)
[2019-10-06] MEDS: ASCORBIC ACID 500 MG TABLET PO SCH (08:47)
[2019-10-06] MEDS: TAMSULOSIN 0.4 MG SR CAP PO SCH ×2 (08:47→20:27)
[2019-10-06] MEDS: VITAMIN D 1000 UNIT TAB PO SCH (08:47)
[2019-10-06] MEDS: HEPARIN 5000 UNIT/ML 1 ML VIAL SQ SCH ×2 (08:47→20:28)
[2019-10-06] MEDS: CHOLESTYRAMINE/ASP 4 GM/PKT PO SCH ×2 (08:48→20:27)
[2019-10-06] MEDS: CALCITROL 0.25 MCG CAP PO SCH (08:48)
[2019-10-06] MEDS: Meropenem 500 MG in NA CHLORIDE 0.9% 100 ML IV SCH ×2 (08:49→20:27)
[2019-10-06] MEDS ORDERED: COLLAGENASE 30 GM OINTMENT TOP SCH (09:00)
[2019-10-06] MEDS ORDERED: HOME MED [COLLAGENASE 30 GM OINTMENT] TOP SCH (09:00)
[2019-10-06] MEDS: ONDANSETRON 4 MG/2 ML VIAL IV PRN (09:18)
[2019-10-06] MEDS ORDERED: SOD BICARB 150 MEQ in STERILE WATER 1000 ML IVBAG IV SCH (10:00)
--- NOTE | 2019-10-06 10:47 | P.PN ---
Subjective Date of Service: 10/06/19 Primary Care Provider: Dr. Bruno Chief Complaint: Nausea, vomiting, poor oral intake Subjective: Other (Patient alert. Cooperative. Blood pressure stable.) Physical Examination - Vital Signs Temperature: 98.0 F Blood Pressure: 117/64 Pulse: 94 Respirations: 15 Pulse Ox (%): 100 - Physical Exam General: Alert, Cooperative HEENT: Atraumatic Neck: Supple Respiratory: Clear to auscultation bilaterally, Normal air movement Cardiovascular: Normal pulses, Regular rate/rhythm Gastrointestinal: Normal bowel sounds, No masses, No rebound, No guarding Neurological: Normal speech, Normal strength at 5/5 x4 extr, Normal tone, Normal affect - Studies Microbiology Data (last 24 hrs): 10/04/19 14:37 Throat Culture & Sensitivity - Final NORMAL UPPER RESPIRATORY YEIMY GROWN. Medications List Reviewed: Yes Assessment & Plan Discharge Plan: Home Plan to discharge in: Greater than 2 days Physician Review Additional Text: Impression: Acute on chronic renal failure stage 5 with hyperkalemia suspect related to dehydration/poor oral intake complicated with mild pancreatitis, recurrent UTI with chronic Hill catheter, urine culture positive for Gram-negative rods Nausea and vomiting suspect related to mild pancreatitis Chronic sacral decubitus ulcer stage I with possible cellulitis Chronic diastolic CHF GERD with history of esophagitis Chronic pleural effusions Diabetes mellitus type 2 Hypertension Anemia of chronic disease History orthostatic hypotension Plan: Acute on chronic renal failure stage 5 with hyperkalemia suspect related to dehydration/poor oral intake complicated with mild pancreatitis, recurrent UTI w ith chronic Hill catheter, urine culture positive for Gram-negative rods: Patient remains in ICU. Nephrology continues to adjust IV fluids. Will continue monitor renal function closely. If no changes in renal function patient will likely require dialysis. Continue current IV antibiotic therapy. Spoke with nephrology yesterday concerning his care. Also spoke to surgery concerning stage I sacral decubitus. Continue with his recommendations. Hemoglobin remained stable. Will monitor hemoglobin. Medications reviewed and adjusted. Will discuss with family. Nausea and vomiting suspect related to mild pancreatitis: Patient without nausea, vomiting or abdominal pain. Repeat lipase level within normal range.. Will continue to advance diet as tolerated. Continue with current medication Possible recurrent UTI with chronic Hill catheter, will need to rule out sepsis, urine culture positive for gram-negative rods: Continue IV antibiotic therapy. Patient with chronic Hill catheter. Await urine culture final results. Chronic sacral decubitus ulcer stage I with possible cellulitis: Surgery evaluated patient. Continue with wound care as recommended by surgery. Chronic diastolic CHF: This appears stable at this time. Will monitor closely. Patient with chronic pleural effusions. GERD with history of esophagitis: Continue medication Chronic pleural effusions: Will monitor closely. Diabetes mellitus type 2: Will obtain A1c. Continue sliding scale. Hypertension: Hold blood pressure medication at this time. Anemia of chronic disease: Will monitor hemoglobin. Patient has received transfusions in the past. EGD done in August showed esophageal candidiasis, esophagitis and gastritis. History of orthostatic hypotension: Continue midodrine Time Spent Managing Pts Care (In Minutes): 55
[2019-10-06 11:07] LABS: Anisocytosis 1+; Blood Morphology Comment NOTED (NOT SEEN); Platelet Estimate ADEQ
[2019-10-06 12:25] LABS: Hematocrit 22.6 % (39.6-49.0)
--- NOTE | 2019-10-06 12:30 | P.PN ---
Subjective Date of Service: 10/06/19 Primary Care Provider: Dr. Bruno Chief Complaint: Nausea, vomiting, poor oral intake Subjective: No new changes Physical Examination - Vital Signs Temperature: 98.0 F Blood Pressure: 117/64 Pulse: 94 Respirations: 15 Pulse Ox (%): 100 - Physical Exam General: Alert, In no apparent distress, Cooperative Integumentary: Other (sacral wound stable with duoderm, perineal wound clean with minimal serous discharge. ) - Studies Microbiology Data (last 24 hrs): 10/04/19 14:37 Throat Culture & Sensitivity - Final NORMAL UPPER RESPIRATORY YEIMY GROWN. Medications List Reviewed: Yes Assessment And Plan - Current Problems (Diagnosis) (1) Open wound of perineum Current Visit: Yes Status: Acute Plan: Daily wound care to perineal wound - removal all dressings, irrigate, repack with 1/2" plain packing for now. - will transition to amira soon - continue medical management Physician Review Additional Text: Impression: Acute on chronic renal failure stage 5 with hyperkalemia suspect related to dehydration/poor oral intake complicated with mild pancreatitis, recurrent UTI with chronic Hill catheter, urine culture positive for Gram-negative rods Nausea and vomiting suspect related to mild pancreatitis Chronic sacral decubitus ulcer stage I with possible cellulitis Chronic diastolic CHF GERD with history of esophagitis Chronic pleural effusions Diabetes mellitus type 2 Hypertension Anemia of chronic disease History orthostatic hypotension Plan: Acute on chronic renal failure stage 5 with hyperkalemia suspect related to dehydration/poor oral intake complicated with mild pancreatitis, recurrent UTI with chronic Hill catheter, urine culture positive for Gram-negative rods: Patient remains in ICU. Nephrology continues to adjust IV fluids. Will continue monitor renal function closely. If no changes in renal function patient will likely require dialysis. Continue current IV antibiotic therapy. Spoke with nephrology yesterday concerning his care. Also spoke to surgery concerning stage I sacral decubitus. Continue with his recommendations. Hemoglobin remained stable. Will monitor hemoglobin. Medications reviewed and adjusted. Will discuss with family. Nausea and vomiting suspect related to mild pancreatitis: Patient without nausea, vomiting or abdominal pain. Repeat lipase level within normal range.. Will continue to advance diet as tolerated. Continue with current medication Possible recurrent UTI with chronic Hill catheter, will need to rule out sepsis, urine culture positive for gram-negative rods: Continue IV antibiotic therapy. Patient with chronic Hill catheter. Await urine culture final results. Chronic sacral decubitus ulcer stage I with possible cellulitis: Surgery evaluated patient. Continue with wound care as recommended by surgery. Chronic diastolic CHF: This appears stable at this time. Will monitor closely. Patient with chronic pleural effusions. GERD with history of esophagitis: Continue medication Chronic pleural effusions: Will monitor closely. Diabetes mellitus type 2: Will obtain A1c. Continue sliding scale. Hypertension: Hold blood pressure medication at this time. Anemia of chronic disease: Will monitor hemoglobin. Patient has received transfusions in the past. EGD done in August showed esophageal candidiasis, esophagitis and gastritis. History of orthostatic hypotension: Continue midodrine
[2019-10-06 17:55] LABS: Magnesium 1.8 mg/dL (1.8-2.4); Phosphorus 6.8 mg/dL (2.5-4.9); Potassium 4.2 mmol/L (3.5-5.1)
--- NOTE | 2019-10-06 19:08 | PN ---
Date of Progress Note: 10/06/2019 Subjective: The patient seen at the bedside. No acute issues overnight. The patient remains in ICU for monitoring with severe acute renal failure and propensity for acute decompensation. The patient has no acute complaints. Denies any fevers, chills, chest pain, shortness of breath, nausea, vomiti ng, or diarrhea. Objective: Vital Signs: Blood pressure 117/64, pulse rate 94, temperature 98. Input and output, 55 0 mL of urine output yesterday compared to total so far from the past 24 hours versus 300 mL for the first 24 hours. General: No acute distress. Heart: Regular rate and rhythm. No murmurs, rubs, gallops. Lungs: Slightly diminished at the bases. Abdomen: Soft, nontender, nondistended. Extremities: With trace to 1+ edema at the thighs. There was no reported scrotal edema. Patient do es have some chronic appearing ulcers on the distal parts of the toes and the remainder of the patien t's ulcers are wrapped. Genitourinary: Patient has reported tunneled ulcer in the perineal area. Laboratory Data: Hemoglobin and hematocrit 7.9/24.7. Serum chemistry; sodium 140, potassium 4.5, ch loride 109, CO2 15, BUN 147, creatinine 5.95, glucose 108, calcium 7.5. UA from the 8th was reviewed . Again, patient with evidence of urinary tract infection as well as approximately 3 g of proteinuri a. The patient's KANU and ANCA antibodies as well as double-stranded DNA are all pending. Microbiolo gy data, urine cultures from admission are showing over 100,000 gram-negative rods. Current Medications: Reviewed. The patient is on sodium bicarbonate 150 mEq/L of sterile water, mid odrine 5 mg p.o. q.12, meropenem 500 mg IV q.12. Remainder of medications noted. Impression: 1.Acute kidney injury on chronic kidney disease. 2.Hyperkalemia, improved. 3.Anion gap metabolic acidosis, improving. 4.Altered mental status, substantially improved. 5.Electrolyte abnormality. 6.Acute anemia. 7.Sepsis. 8.Urinary tract infection. 9.Non-ST elevation myocardial infarction. 10.Deconditioning. 11.Decubitus and distal ulcers. Plan: Mr. Pardo's mentation is intact. Electrolytes are imbalanced and acidosis is improving wi thout any evidence of untreatable volume overload. At this point, renal replacement therapy will be deferred. However, the patient is high risk for the necessity of dialysis. We will continue monitor ing here in the ICU with q.12 electrolytes. The patient's bicarbonate infusion will continue; howeve r, will be decreased to 75 mL/h to avoid overt fluid overload. If patient does develop any respirato ry insufficiency, hypoxemia, and overt heart failure, would need to have a high-dose Lasix challenge. Would recommend Lasix 100 mg IV x1 and monitor for diuresis if necessary. For anemia, patient can be transfused as needed. However, patient appears to be asymptomatic from that at this time. Avoid all NSAIDs, avoid contrast. Continue following up cultures and titrating antibiotics appropriately. Renal dose all medications. We will continue to follow. /MODL Voice ID: [id number] Report ID: [id number]
[2019-10-07] MEDS: SOD BICARB 150 MEQ in STERILE WATER 1000 ML IVBAG IV SCH ×2 (03:29→23:00)
[2019-10-07 05:47] LABS: Absolute Lymphocytes (CBC) 0.5 K/uL (0.7-4.9); Basophils % 0.3 % (0-1.3); Hematocrit 22.5 % (39.6-49.0); Lymphocytes % 9.8 % (15.3-44.8); MPV 8.9 fL (7.6-11.3); RBC Red Blood Cell Count 2.55 M/uL (4.33-5.43)
[2019-10-07 05:58] LABS: Albumin 1.6 g/dL (3.4-5.0); Bilirubin Total 0.3 mg/dL (0.2-1.0); Magnesium 1.8 mg/dL (1.8-2.4); Phosphorus 6.8 mg/dL (2.5-4.9); Protein, Total 5.1 g/dL (6.4-8.2)
[2019-10-07] MEDS: INSULIN -REGULAR HUMAN 50 UNIT/0.5 ML ML SQ SCH ×4 (07:30→20:24)
[2019-10-07] MEDS: Meropenem 500 MG in NA CHLORIDE 0.9% 100 ML IV SCH (07:45)
[2019-10-07] MEDS: CALCITROL 0.25 MCG CAP PO SCH (07:46)
[2019-10-07] MEDS: ASCORBIC ACID 500 MG TABLET PO SCH (07:46)
[2019-10-07] MEDS: VITAMIN D 1000 UNIT TAB PO SCH (07:46)
[2019-10-07] MEDS: TAMSULOSIN 0.4 MG SR CAP PO SCH ×2 (07:47→20:22)
[2019-10-07] MEDS: HEPARIN 5000 UNIT/ML 1 ML VIAL SQ SCH ×3 (07:47→20:23)
[2019-10-07] MEDS: PANTOPRAZOLE 40MG TABLET PO SCH (07:47)
[2019-10-07] MEDS: CHOLESTYRAMINE/ASP 4 GM/PKT PO SCH ×2 (07:47→20:23)
[2019-10-07] MEDS ORDERED: MAGNESIUM SULFATE 1 gm IVPB 1 GM/100 ML BAG IV ONE (07:53)
[2019-10-07] MEDS ORDERED: VANCOMYCIN 1.5 GM in NA CHLORIDE 0.9% 500 ML IVPB SCH (09:00)
--- NOTE | 2019-10-07 11:59 | P.PN ---
Subjective Date of Service: 10/07/19 Primary Care Provider: Dr. Bruno Chief Complaint: Nausea, vomiting, poor oral intake Subjective: Improving Physical Examination - Vital Signs Temperature: 97.4 F Blood Pressure: 106/52 Pulse: 92 Respirations: 13 Pulse Ox (%): 98 - Physical Exam General: Alert, In no apparent distress, Cooperative Integumentary: Other (wound is clean, no infection, no collections, sacral ulcer stable) - Studies Microbiology Data (last 24 hrs): 10/04/19 14:37 Throat Culture & Sensitivity - Final NORMAL UPPER RESPIRATORY YEIMY GROWN. Medications List Reviewed: Yes Assessment And Plan - Current Problems (Diagnosis) (1) Open wound of perineum Current Visit: Yes Status: Acute Plan: Daily wound care to perineal wound - removal all dressings, irrigate, repack with 1/2" plain packing for now. add santyl - will transition to amira soon - continue medical management Physician Review Additional Text: Impression: Acute on chronic renal failure stage 5 with hyperkalemia suspect related to dehydration/poor oral intake complicated with mild pancreatitis, recurrent UTI with chronic Hill catheter, urine culture positive for Gram-negative rods Nausea and vomiting suspect related to mild pancreatitis Chronic sacral decubitus ulcer stage I with possible cellulitis Chronic diastolic CHF GERD with history of esophagitis Chronic pleural effusions Diabetes mellitus type 2 Hypertension Anemia of chronic disease History orthostatic hypotension Plan: Acute on chronic renal failure stage 5 with hyperkalemia suspect related to dehydration/poor oral intake complicated with mild pancreatitis, recurrent UTI with chronic Hill catheter, urine culture positive for Gram-negative rods: Patient remains in ICU. Nephrology continues to adjust IV fluids. Will continue monitor renal function closely. If no changes in renal function patient will likely require dialysis. Continue current IV antibiotic therapy. Spoke with nephrology yesterday concerning his care. Also spoke to surgery concerning stage I sacral decubitus. Continue with his recommendations. Hemoglobin remained stable. Will monitor hemoglobin. Medications reviewed and adjusted. Will discuss with family. Nausea and vomiting suspect related to mild pancreatitis: Patient without nausea, vomiting or abdominal pain. Repeat lipase level within normal range.. Will continue to advance diet as tolerated. Continue with current medication Possible recurrent UTI with chronic Hill catheter, will need to rule out sepsis, urine culture positive for gram-negative rods: Continue IV antibiotic therapy. Patient with chronic Hill catheter. Await urine culture final results. Chronic sacral decubitus ulcer stage I with possible cellulitis: Surgery evaluated patient. Continue with wound care as recommended by surgery. Chronic diastolic CHF: This appears stable at this time. Will monitor closely. Patient with chronic pleural effusions. GERD with history of esophagitis: Continue medication Chronic pleural effusions: Will monitor closely. Diabetes mellitus type 2: Will obtain A1c. Continue sliding scale. Hypertension: Hold blood pressure medication at this time. Anemia of chronic disease: Will monitor hemoglobin. Patient has received transfusions in the past. EGD done in August showed esophageal candidiasis, esophagitis and gastritis. History of orthostatic hypotension: Continue midodrine
--- NOTE | 2019-10-07 12:05 | P.PN ---
Subjective Date of Service: 10/07/19 Primary Care Provider: Dr. Bruno Chief Complaint: Nausea, vomiting, poor oral intake Subjective: Doing well (Patient reports no chest pain or shortness of breath. Blood pressure stable.) Physical Examination - Vital Signs Temperature: 97.4 F Blood Pressure: 106/52 Pulse: 92 Respirations: 13 Pulse Ox (%): 98 - Physical Exam General: Alert, In no apparent distress, Cooperative HEENT: Atraumatic Neck: Supple Respiratory: Clear to auscultation bilaterally, Normal air movement Cardiovascular: Normal pulses, Regular rate/rhythm Gastrointestinal: Normal bowel sounds, Soft and benign, Non-distended, No rebound, No guarding Neurological: Normal speech, Normal strength at 5/5 x4 extr, Normal tone, Normal affect - Studies Microbiology Data (last 24 hrs): 10/04/19 14:37 Throat Culture & Sensitivity - Final NORMAL UPPER RESPIRATORY YEIMY GROWN. Medications List Reviewed: Yes Assessment & Plan Discharge Plan: LTAC Plan to discharge in: 24 Hours Physician Review Additional Text: Impression: Acute on chronic renal failure stage 5 with hyperkalemia suspect related to dehydration/poor oral intake complicated with mild pancreatitis, recurrent UTI with chronic Hill catheter, urine culture positive E coli-ESBL, and sacral decubitus with wound culture positive for MRSA Recurring UTI with chronic Hill catheter, urine culture positive for E coli- ESBL Nausea and vomiting suspect related to mild pancreatitis Chronic sacral decubitus ulcer stage I with cellulitis, wound culture positive for MRSA Chronic diastolic CHF GERD with history of esophagitis Chronic pleural effusions Diabetes mellitus type 2 Hypertension Anemia of chronic disease History orthostatic hypotension Plan: Acute on chronic renal failure stage 5 with hyperkalemia suspect related to dehydration/poor oral intake complicated with mild pancreatitis, recurrent UTI with chronic Hill catheter, urine culture positive E coli-ESBL, and sacral decubitus with wound culture positive for MRSA: Wound culture results reviewed. Patient with MRSA. Urine culture positive for E coli-ESBL. Patient remains on IV meropenem. IV vancomycin started. Continue with wound care per surgery. Infectious disease consulted for further evaluation and recommendation. Spoke with nephrology yesterday. Nephrology continue with IV fluids. Await further recommendations whether the patient will require dialysis. With multiple medical issues in likelihood of patient requiring long-term IV antibiotic therapy with aggressive wound care, will recommend long-term acute care facility placement. This was discussed in detail with case management and social work. I will try to get a hold of the brother who takes care of him. Will recommend long-term acute care facility placement at this time. Await approval. I will turn the service over to the hospitalist team tomorrow. I will go over the plan of care with him. Anticipate discharge to long-term acute care facility once approved. Nausea and vomiting suspect related to mild pancreatitis: Patient without nausea, vomiting or abdominal pain. Repeat lipase level within normal range.. Will continue to advance diet as tolerated. Continue with current medication Possible recurrent UTI with chronic Hill catheter, will need to rule out sepsis, urine culture positive for E coli-ESBL: Continue meropenem. Await further recommendations from infectious disease. Will recommend long-term acute care facility placement to continue treatment. Chronic sacral decubitus ulcer stage I with cellulitis, wound culture positive for MRSA: Case discussed with surgery. No further intervention required. Patient started on vancomycin IV. Await recommendations from Infectious Disease. Will recommend long-term acute care facility placement for continued wound care, and IV antibiotic therapy. Chronic diastolic CHF: This appears stable at this time. Will monitor closely. Patient with chronic pleural effusions. GERD with history of esophagitis: Continue medication Chronic pleural effusions: Will monitor closely. Diabetes mellitus type 2: Will obtain A1c. Continue sliding scale. Hypertension: Hold blood pressure medication at this time. Anemia of chronic disease: Will monitor hemoglobin. Patient has received transfusions in the past. EGD done in August showed esophageal candidiasis, esophagitis and gastritis. Maintain hemoglobin above 7.5. Patient may require transfusion if repeat hemoglobin low. History of orthostatic hypotension: Continue midodrine p.r.n. Time Spent Managing Pts Care (In Minutes): 55
[2019-10-07 12:10] LABS: Hematocrit 21.8 % (39.6-49.0)
[2019-10-07] MEDS ORDERED: NA CHLORIDE 0.9% 250 ML ONE (13:54)
[2019-10-07] MEDS: ONDANSETRON 4 MG/2 ML VIAL IV PRN (15:07)
--- NOTE | 2019-10-07 16:23 | P.CNS ---
Date of Consult: 10/07/19 Subjective: The patient is a 83-year-old male who presents with poor oral intake, nausea and vomiting. The patient was hospitalized back in August for symptomatic anemia with EGD showing esophagitis. [facility] at a [facility]. Patient found to have multiple ulcers to the lower extremities and sacrum which have been consulted for. Patient is a poor historian due to current status and history of dementia. History obtained from medical record. Past medical/surgical history: Diabetes mellitus type 2, dementia, GI bleed related to esophagitis, DVT, CAD, PVD, chronic diastolic CHF with recent ejection fraction of 50%, pulmonary hypertension, aortic stenosis, recurrent UTI and right leg surgery Family History: Mother and father with unspecified cancer Social history: Undocumented Active Medications Acetaminophen (Tylenol -Extra Strength) 500 mg PO Q4HP PRN PRN Reason: TEMP > 101' F Stop: 11/03/19 20:25 Ascorbic Acid (Vitamin C) 500 mg PO DAILY [facility] Stop: 11/04/19 10:46 Last Admin: 10/07/19 07:46 Dose: 500 mg Documented by: Calcitriol (Rocaltrol) 0.5 mcg PO DAILY [facility] Stop: 11/04/19 11:01 Last Admin: 10/07/19 07:46 Dose: 0.5 mcg Documented by: Cholecalciferol (Vitamin D 1000 Iu Tab) 3,000 unit PO DAILY [facility] Stop: 11/05/19 09:01 Last Admin: 10/07/19 07:46 Dose: 3,000 unit Documented by: Cholestyramine Resin (Questran Light) 4 gm PO BID [facility] Stop: 11/04/19 11:01 Last Admin: 10/07/19 07:47 Dose: 4 gm Documented by: Collagenase (Santyl Ointment) 1 appl TOP 1700 [facility] Stop: 11/06/19 17:01 Dextrose (Dextrose 50% Syringe/Vial) 12.5 gm IV PRN PRN; Protocol PRN Reason: HYPOGLYCEMIA Stop: 11/04/19 12:53 Glucagon (Glucagen) 1 mg IM 1X PRN; Protocol PRN Reason: HYPOGLYCEMIA Stop: 11/04/19 12:53 Heparin Sodium (Porcine) (Heparin 5,000 Units/Ml) 5,000 unit SQ Q12HR [facility] Stop: 11/03/19 21:01 Last Admin: 10/07/19 07:57 Dose: 5,000 unit Documented by: Sodium Bicarbonate 150 meq/ (Sterile Water) 1,150 mls @ 50 mls/hr IV .Q23H [facility] Stop: 11/06/19 00:01 Last Admin: 10/07/19 03:29 Dose: 1,150 mls Documented by: Vancomycin HCl 1.5 gm/ Sodium (Chloride) 500 mls @ 250 mls/hr IVPB Q48H [facility] Stop: 11/06/19 09:01 Last Admin: 10/07/19 10:41 Dose: 500 mls Documented by: Meropenem 500 mg/ Sodium (Chloride) 100 mls @ 100 mls/hr IV DAILY [facility] Stop: 11/04/19 09:01 Insulin Human Regular (Novolin -R) 0 unit SQ ACHS [facility]; Protocol Stop: 11/03/19 21:01 Last Admin: 10/07/19 11:29 Dose: Not Given Documented by: Midodrine (Proamatine) 5 mg PO Q12HP PRN PRN Reason: LOW BP Stop: 11/04/19 10:01 Nutritional Formula (Promod Liquid Protein) 30 ml PO BID [facility] Stop: 11/06/19 21:01 Nutritional Formula (Ensure High Protein) 237 ml PO BID [facility] Stop: 11/06/19 21:01 Ondansetron HCl (Zofran) 4 mg IV Q6HP PRN PRN Reason: NAUSEA / VOMITING Stop: 11/03/19 20:25 Last Admin: 10/07/19 15:07 Dose: 4 mg Documented by: Pantoprazole Sodium (Protonix Tab) 40 mg PO ACB [facility]; Protocol Stop: 11/05/19 07:31 Last Admin: 10/07/19 07:47 Dose: 40 mg Documented by: Sodium Chloride (Normal Saline Flush) 10 ml IV BID [facility] Stop: 11/03/19 21:01 Last Admin: 10/07/19 07:47 Dose: 10 ml Documented by: Sodium Chloride (Sodium Chloride 10 Ml Inj) 10 ml IV UD PRN PRN Reason: Diluant Stop: 11/03/19 20:25 Tamsulosin HCl (Flomax) 0.4 mg PO BID [facility] Stop: 11/04/19 11:01 Last Admin: 10/07/19 07:47 Dose: 0.4 mg Documented by: Allergy/AdvReac Type Severity Reaction Status Date / Time aspirin [From Ecotrin] Allergy Itching/Hiv Verified 10/04/19 20:54 es/Rash Cpqazyn-Bgu-Dvj Reductase Allergy Itching/Hiv Verified 10/04/19 20:54 Inhibitor es/Rash Objective: Temp Pulse Resp BP Pulse Ox 97.0 F 98 H 14 94/52 L 98 10/07/19 16:00 10/07/19 16:00 10/07/19 16:00 10/07/19 16:00 10/07/19 16:00 Labs: Na 140, K 4.0, BUN 147, Creat 6.17, GFR 9, WBC 4.9, Hgb 7.1, Hct 21.8 Chest x-ray 10/03: EXAM DESCRIPTION: RADChest Single View10/04/2019 2:16 pm CLINICAL HISTORY: cough COMPARISON: Multiple prior exams FINDINGS: The lungs appear clear of acute infiltrate. The heart is normal size ABD CT 10/03: EXAM DESCRIPTION: CT - Stone Protocol - 10/04/2019 4:50 pm CLINICAL HISTORY: Abdominal pain. COMPARISON: August 2019 TECHNIQUE: Computed axial tomography of the abdomen pelvis was obtained without oral or IV contrast. Lack of IV and oral contrast limits evaluation of solid organs, bowel, and vessels. Coronal reformatted images were obtained and reviewed. All CT scans are performed using dose optimization technique as appropriate and may include automated exposure control or mA/KV adjustment according to patient size. FINDINGS: Small bilateral pleural effusions. Tiny nonobstructing bilateral renal calculi. Left renal cysts are unchanged. No hydronephrosis. A Hill catheter is present within the bladder. An ureteral calculus is not noted. A bladder calculus is not present. The liver, spleen, and adrenal appear grossly normal. Mild stranding adjacent to the pancreas. The pancreas is normal size A left inguinal hernia contains fat. A small amount of ascites. No evidence of diverticulitis. Vascular calcifications. Spondylosis involves lumbar spine resulting in spinal stenosis IMPRESSION: Tiny nonobstructing renal calculi Mild stranding adjacent the pancreas may indicate mild pancreatitis ROS: General: Awake, lying in bed CV: S1, S2 RESP: Good breath sounds ABD: Round, soft, nontender : Hill catheter Extremities: Anasarca, and 1+ pedal pulses Skin: Multiple bruises to her upper and lower extremities. Skin tear noted to the left lower extremity. Sacral ulcer with dressing CDI. Onychomycosis. Multiple scabs to bilateral toes. Assessment and plan: Leukocytosis Sacral decubitus ulcer, continue to pack wound daily and change positions often Left lower extremity skin tear, recommend to apply xeroform and foam dressing MWF Right Heel ulcer, Recommend medihoney and foam dressing MWF, offload heels UTI, E. coli ESBL sensitive to Merrem Wound Cultures positive MRSA, sensitive to Vancomycin Diabetes mellitus, monitor glycemic control Continue current antibiotic treatment Patient would benefit from air mattress Recommend LTAC facility on discharge Will continue to monitor Thank you for consult Patient discussed with Dr. Mak
[2019-10-07] MEDS ORDERED: FUROSEMIDE 20 MG/ 2ML VIAL IV ONE (16:55)
[2019-10-07] MEDS: COLLAGENASE 30 GM OINTMENT TOP SCH (16:57)
[2019-10-07 20:04] LABS: Hematocrit 24.9 % (39.6-49.0)
[2019-10-07 20:08] LABS: Protime INR 1.5
--- NOTE | 2019-10-07 20:20 | P.PN ---
Date of Service: 10/07/19 Vital Signs Temp Pulse Resp BP Pulse Ox 97.0 F 96 H 15 80/54 L 100 10/07/19 16:00 10/07/19 20:00 10/07/19 20:00 10/07/19 20:00 10/07/19 20:00 Medications Acetaminophen (Tylenol -Extra Strength) 500 mg PO Q4HP PRN PRN Reason: TEMP > 101' F Stop: 11/03/19 20:25 Ascorbic Acid (Vitamin C) 500 mg PO DAILY [facility] Stop: 11/04/19 10:46 Last Admin: 10/07/19 07:46 Dose: 500 mg Documented by: Calcitriol (Rocaltrol) 0.5 mcg PO DAILY [facility] Stop: 11/04/19 11:01 Last Admin: 10/07/19 07:46 Dose: 0.5 mcg Documented by: Cholecalciferol (Vitamin D 1000 Iu Tab) 3,000 unit PO DAILY [facility] Stop: 11/05/19 09:01 Last Admin: 10/07/19 07:46 Dose: 3,000 unit Documented by: Cholestyramine Resin (Questran Light) 4 gm PO BID [facility] Stop: 11/04/19 11:01 Last Admin: 10/07/19 07:47 Dose: 4 gm Documented by: Collagenase (Santyl Ointment) 1 appl TOP 1700 [facility] Stop: 11/06/19 17:01 Last Admin: 10/07/19 16:57 Dose: 1 appl Documented by: Dextrose (Dextrose 50% Syringe/Vial) 12.5 gm IV PRN PRN; Protocol PRN Reason: HYPOGLYCEMIA Stop: 11/04/19 12:53 Emollient Gel ([employer] Gel) 1 appl TOP DAILY [facility] Stop: 11/06/19 19:01 Glucagon (Glucagen) 1 mg IM 1X PRN; Protocol PRN Reason: HYPOGLYCEMIA Stop: 11/04/19 12:53 Heparin Sodium (Porcine) (Heparin 5,000 Units/Ml) 5,000 unit SQ Q12HR [facility] Stop: 11/03/19 21:01 Last Admin: 10/07/19 07:57 Dose: 5,000 unit Documented by: Sodium Bicarbonate 150 meq/ (Sterile Water) 1,150 mls @ 50 mls/hr IV .Q23H [facility] Stop: 11/06/19 00:01 Last Admin: 10/07/19 03:29 Dose: 1,150 mls Documented by: Vancomycin HCl 1.5 gm/ Sodium (Chloride) 500 mls @ 250 mls/hr IVPB Q48H [facility] Stop: 11/06/19 09:01 Last Admin: 10/07/19 10:41 Dose: 500 mls Documented by: Meropenem 500 mg/ Sodium (Chloride) 100 mls @ 100 mls/hr IV DAILY [facility] Stop: 11/04/19 09:01 Insulin Human Regular (Novolin -R) 0 unit SQ ACHS [facility]; Protocol Stop: 11/03/19 21:01 Last Admin: 10/07/19 16:26 Dose: Not Given Documented by: Midodrine (Proamatine) 5 mg PO Q12HP PRN PRN Reason: LOW BP Stop: 11/04/19 10:01 Nutritional Formula (Promod Liquid Protein) 30 ml PO BID [facility] Stop: 11/06/19 21:01 Nutritional Formula (Ensure High Protein) 237 ml PO BID [facility] Stop: 11/06/19 21:01 Ondansetron HCl (Zofran) 4 mg IV Q6HP PRN PRN Reason: NAUSEA / VOMITING Stop: 11/03/19 20:25 Last Admin: 10/07/19 15:07 Dose: 4 mg Documented by: Pantoprazole Sodium (Protonix Tab) 40 mg PO ACB [facility]; Protocol Stop: 11/05/19 07:31 Last Admin: 10/07/19 07:47 Dose: 40 mg Documented by: Sodium Chloride (Normal Saline Flush) 10 ml IV BID [facility] Stop: 11/03/19 21:01 Last Admin: 10/07/19 07:47 Dose: 10 ml Documented by: Sodium Chloride (Sodium Chloride 10 Ml Inj) 10 ml IV UD PRN PRN Reason: Diluant Stop: 11/03/19 20:25 Tamsulosin HCl (Flomax) 0.4 mg PO BID [facility] Stop: 11/04/19 11:01 Last Admin: 10/07/19 07:47 Dose: 0.4 mg Documented by: Microbiology Results 10/04/19 14:37 Throat Culture & Sensitivity - Final NORMAL UPPER RESPIRATORY YEIMY GROWN. 10/04/19 14:50 Blood - Blood Aerobic Blood Culture - Preliminary No growth in 24 hours. 10/04/19 14:50 Blood - Blood Anaerobic Blood Culture - Preliminary No growth in 24 hours. 10/04/19 14:35 Blood - Blood Aerobic Blood Culture - Preliminary No growth in 24 hours. 10/04/19 14:35 Blood - Blood Anaerobic Blood Culture - Preliminary No growth in 24 hours. 10/04/19 14:37 Nasopharnyx Coronavirus COVID-19 PCR - Final 10/04/19 14:37 Nasopharnyx Influenza Type A Antigen Screen - Final 10/04/19 14:37 Nasopharnyx Influenza Type B Antigen Screen - Final 10/04/19 14:37 Throat Group A Streptococcus Rapid Screen - Final Assessment/ Plan: Nephrology CPS stable without CP or SOB. Weakness and fatigue. No acute events overnight. Vitals, medications, blood work and imaging reviewed in the chart. NAD. Obese. MMM. Neck supple. CTA. RRR. Soft Abd. No C/C. LE edema trace. No rash. AAO. Normal Speech. A/ DIEGO in the setting of sepsis. Acidosis CKD IV with proteinuria. Chronic hypotension. Anemia in chronic illness. Severe Malnutrition. TA/ Secondary HyperPTH. Acute ESBL E.coli Cystitis. MRSA Wound. P/ Continue current POC and Medications. Give IVF. Start oral bicarb. Give IV Albumin as needed. Requested CVC placement to initiate dialysis. Plan to start HD tomorrow. Continue abx. Transfuse PRBC as needed. Give Retacrit. AM labs. Daily weight. No NSAIDs. Case reviewed with Dr. Mejia. Greater than 30min patient care.
[2019-10-07] MEDS: ENSURE HIGH PROTEIN 237 ML CAN PO SCH (20:22)
[2019-10-07] MEDS: MEDIHONEY 44 ML TOPICAL TUBE TOP SCH (20:22)
[2019-10-07] MEDS: PROMOD 30 ML DOSE PO SCH (20:23)
[2019-10-07] MEDS ORDERED: EPOETIN ALFA-EPBX 10,000 UNIT/ML VIAL SQ ONE (20:30)
[2019-10-07] MEDS: ALBUMIN HUMAN 25% 100 ML IV SCH (21:09)
[2019-10-07] MEDS: NACHLORIDE 0.45% 1,000 ML IV SCH (21:09)
[2019-10-07] MEDS ORDERED: EPOETIN ALFA-EPBX 10,000 UNIT/ML VIAL ONE (21:22)
[2019-10-07] MEDS: SODIUM BICARB 325 MG TAB PO SCH (21:28)
[2019-10-08] MEDS: ALBUMIN HUMAN 25% 100 ML IV SCH ×4 (02:53→15:00)
[2019-10-08 05:16] LABS: Absolute Lymphocytes (CBC) 0.4 K/uL (0.7-4.9); Basophils % 0.4 % (0-1.3); Hematocrit 21.5 % (39.6-49.0); Lymphocytes % 15.9 % (15.3-44.8); MPV 8.6 fL (7.6-11.3); RBC Red Blood Cell Count 2.51 M/uL (4.33-5.43)
[2019-10-08 06:01] LABS: Magnesium 1.9 mg/dL (1.8-2.4); Potassium 3.8 mmol/L (3.5-5.1); Uric Acid 11.7 mg/dL (3.5-7.2)
[2019-10-08] MEDS: NACHLORIDE 0.45% 1,000 ML IV SCH ×2 (06:04→17:00)
[2019-10-08 06:19] VITALS: BMI 29.5
[2019-10-08] MEDS: INSULIN -REGULAR HUMAN 50 UNIT/0.5 ML ML SQ SCH ×4 (07:30→20:48)
[2019-10-08] MEDS: PANTOPRAZOLE 40MG TABLET PO SCH (07:30)
[2019-10-08] MEDS: SEVELAMER CARBONATE 800 MG TABLET PO SCH ×3 (07:54→17:00)
[2019-10-08] MEDS: TAMSULOSIN 0.4 MG SR CAP PO SCH ×2 (07:54→20:48)
[2019-10-08] MEDS: ENSURE HIGH PROTEIN 237 ML CAN PO SCH ×2 (07:54→20:48)
[2019-10-08] MEDS: ASCORBIC ACID 500 MG TABLET PO SCH (07:55)
[2019-10-08] MEDS: CHOLESTYRAMINE/ASP 4 GM/PKT PO SCH ×2 (07:55→20:48)
[2019-10-08] MEDS: SODIUM BICARB 325 MG TAB PO SCH ×3 (07:55→20:48)
[2019-10-08] MEDS: PROMOD 30 ML DOSE PO SCH ×2 (07:55→20:48)
[2019-10-08] MEDS: CALCITROL 0.25 MCG CAP PO SCH (07:55)
[2019-10-08] MEDS: VITAMIN D 1000 UNIT TAB PO SCH (07:55)
[2019-10-08] MEDS: HEPARIN 5000 UNIT/ML 1 ML VIAL SQ SCH ×2 (08:02→20:47)
[2019-10-08] MEDS ORDERED: NA CHLORIDE 0.9% 1,000 ML IV PRN (08:28)
[2019-10-08] MEDS ORDERED: MANNITOL 25% 12.5 GM/50 ML VIAL IV PRN (08:28)
[2019-10-08] MEDS ORDERED: ALBUMIN HUMAN 25% 50 ML IV SCH (09:00)
[2019-10-08] MEDS: MEDIHONEY 44 ML TOPICAL TUBE TOP SCH ×2 (09:00)
[2019-10-08] MEDS ORDERED: VANCOMYCIN/NS 1 gm 1 GM/250 ML BAG IV SCH (09:00)
[2019-10-08] MEDS: COLLAGENASE 30 GM OINTMENT TOP SCH (09:00)
[2019-10-08] MEDS: Meropenem 500 MG in NA CHLORIDE 0.9% 100 ML IV SCH (09:33)
--- NOTE | 2019-10-08 10:36 | P.PN ---
Subjective Date of Service: 10/08/19 Primary Care Provider: Dr. Bruno Chief Complaint: Nausea, vomiting, poor oral intake Subjective: No new changes (Patient seen resting in bed without acute distress. He appears lethargic but with intact mental status. Was able to recognized me from a previous encounter) Physical Examination - Vital Signs Temperature: 96.9 F Blood Pressure: 108/70 Pulse: 120 Respirations: 19 Pulse Ox (%): 94 - Physical Exam General: In no apparent distress (lethargic but awake) HEENT: Atraumatic, Normocephalic Neck: Supple Respiratory: Clear to auscultation bilaterally, Normal air movement Cardiovascular: No edema, Normal pulses, Regular rate/rhythm, Systolic murmur Gastrointestinal: Normal bowel sounds, Soft and benign Musculoskeletal: Erythema, Warmth Integumentary: Other (stage ii sacral ulcer, foul-smelling) Neurological: Normal speech, Normal affect Urinary: Hill catheter - Studies Medications List Reviewed: Yes Assessment And Plan Physician Review Additional Text: Patient is a 83 year old male with pulmonary HTN, acute blood loss anemia s/p EGD which showed suspected esophageal candidiaisis who returned to [facility] with nausea and vomiting. Infectious work up yielded ESBL UTI and MRSA sacral ulcers. He was also found to have advanced CKD, requiring HD during this admission. Impression: Acute on chronic renal failure stage 5 with hyperkalemia suspect related to dehydration/poor oral intake complicated with mild pancreatitis, recurrent UTI with chronic Hill catheter, urine culture positive E coli-ESBL, and sacral decubitus with wound culture positive for MRSA Recurring UTI with chronic Hill catheter, urine culture positive for E coli- ESBL Nausea and vomiting suspect related to mild pancreatitis Chronic sacral decubitus ulcer stage I with cellulitis, wound culture positive for MRSA Chronic diastolic CHF GERD with history of esophagitis Chronic pleural effusions Diabetes mellitus type 2 Hypertension Anemia of chronic disease History orthostatic hypotension Plan: Continue vancomycin and meropenem as per ID ID recommends LTAC. Discussed during MDR. SW on board. Transfuse 1 unit of pRBC to keep Hb > 8 Continue PPI Plan is to proceed with temporary HD catheter. Patient is oliguric Appreciate recommendations from Nephrology Continue holding BP meds due to soft BP. PRN Midodrine on board Continue insulin sliding scale Continue PPI
[2019-10-08] MEDS ORDERED: NA CHLORIDE 0.9% 250 ML ONE (11:05)
[2019-10-08] MEDS ORDERED: TRAMADOL HCL 50 MG TAB PO PRN (11:30)
[2019-10-08] MEDS ORDERED: NS 0.9% VIAL 0 ML ONE (12:10)
--- NOTE | 2019-10-08 12:41 | P.OP ---
Preoperative diagnosis: Acute Renal Failure Postoperative diagnosis: Acute Renal Failure Primary procedure: Placement of LEFT Femoral Temporary Hemodialysis Catheter Secondary procedure: Ultrasound guidance and microintroducer used Anesthesia: 1% lidocaine Estimated blood loss: <10cc Specimen: None Findings: Dark Non-pulsatile blood returned Complications: None Implants: Maharkur Double lumen hemodialysis catheter Transferred to: Recovery Room Condition: Good
--- NOTE | 2019-10-08 15:19 | P.PN ---
Date of Service: 10/08/19 Subjective: The patient is a 83-year-old male who presents with poor oral intake, nausea and vomiting. The patient was hospitalized back in August for symptomatic anemia with EGD showing esophagitis. The patient has since been at a longterm. Patient found to have multiple ulcers to the lower extremities and sacrum which have been consulted for. Patient is a poor historian due to current status and history of dementia. History obtained from medical record. Past medical/surgical history: Diabetes mellitus type 2, dementia, GI bleed related to esophagitis, DVT, CAD, PVD, chronic diastolic CHF with recent ejection fraction of 50%, pulmonary hypertension, aortic stenosis, recurrent UTI and right leg surgery Objective: Temp Pulse Resp BP Pulse Ox 97.0 F 98 H 14 94/52 L 98 10/07/19 16:00 10/07/19 16:00 10/07/19 16:00 10/07/19 16:10/07/19 16:00 Labs: Na 140, K 4.0, BUN 147, Creat 6.17, GFR 9, WBC 4.9, Hgb 7.1, Hct 21.8 Chest x-ray 10/03: EXAM DESCRIPTION: RADChest Single View10/04/2019 2:16 pm CLINICAL HISTORY: cough COMPARISON: Multiple prior exams FINDINGS: The lungs appear clear of acute infiltrate. The heart is normal size ABD CT 10/03: EXAM DESCRIPTION: CT - Stone Protocol - 10/04/2019 4:50 pm CLINICAL HISTORY: Abdominal pain. COMPARISON: August 2019 TECHNIQUE: Computed axial tomography of the abdomen pelvis was obtained without oral or IV contrast. Lack of IV and oral contrast limits evaluation of solid organs, bowel, and vessels. Coronal reformatted images were obtained and reviewed. All CT scans are performed using dose optimization technique as appropriate and may include automated exposure control or mA/KV adjustment according to patient size. FINDINGS: Small bilateral pleural effusions. Tiny nonobstructing bilateral renal calculi. Left renal cysts are unchanged. No hydronephrosis. A Hill catheter is present within the bladder. An ureteral calculus is not noted. A bladder calculus is not present. The liver, spleen, and adrenal appear grossly normal. Mild stranding adjacent to the pancreas. The pancreas is normal size A left inguinal hernia contains fat. A small amount of ascites. No evidence of diverticulitis. Vascular calcifications. Spondylosis involves lumbar spine resulting in spinal stenosis IMPRESSION: Tiny nonobstructing renal calculi Mild stranding adjacent the pancreas may indicate mild pancreatitis ROS: General: Awake, lying in bed CV: S1, S2 RESP: Good breath sounds ABD: Round, soft, nontender : Hill catheter Extremities: Anasarca, and 1+ pedal pulses Skin: Multiple bruises to her upper and lower extremities. Skin tear noted to the left lower extremity. Sacrum with superficial ulcer with biofilm noted, nenita area with MASD. 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 Assessment and plan: Leukocytosis Sacral ulcer, recommend to apply barrier cream daily and as needed Perineal Fistula, continue to pack wound daily with iodofrom gauze Left lower extremity skin tear, recommend to apply xeroform and foam dressing MWF Right Heel ulcer, Recommend medihoney and foam dressing MWF, offload heels UTI, E. coli ESBL sensitive to Merrem Wound Cultures positive MRSA, sensitive to Vancomycin Diabetes mellitus, monitor glycemic control Continue current antibiotic treatment Patient would benefit from air mattress Recommend LTAC facility on discharge Will continue to monitor Patient discussed with Dr. Mak
[2019-10-08 16:51] LABS: Hematocrit 25.8 % (39.6-49.0)
--- NOTE | 2019-10-08 21:52 | OP ---
Date of Procedure: 10/08/2019 Surgeon: Alexey Narayanan MD, Preoperative Diagnosis: Acute on chronic renal failure. Postoperative Diagnosis: Acute on chronic renal failure. Procedure Performed: Placement of a left femoral temporary hemodialysis catheter procedure using ult rasound guidance and microintroducer set. Anesthesia: 1% lidocaine without epinephrine. Estimated Blood Loss: Less than 10 mL. Specimens: None. Findings: Dark red, nonpulsatile blood return. Complications: None. Implants: Mahurkar double-lumen hemodialysis catheter. Disposition: Patient remained in ICU bed in good condition throughout the procedure. Procedure In Detail: After informed consent was obtained, patient was prepped and draped in the usua l sterile fashion. After adequate anesthesia achieved using ultrasound guidance and a microintroduce r set, I cannulated the left femoral vein under direct visualization without evidence of complication . Dark red, nonpulsatile blood was returned. A small chalino incision was made over the skin and the m icrointroducer sheath was advanced. Microwire was removed at this point. Introducer, inner cannula was removed and the standard wire was advanced at this point using Seldinger technique. The microint roducer set was then removed in its entirety at this point. Using sequential dilatation/Seldinger te chnique, I dilated the tract without any evidence of complication. The catheter was then placed into the left femoral vein without any evidence of complication. Dark red, nonpulsatile blood was return ed. Wire out was called for the second time. All ports were adequately pooling dark red, nonpulsati le blood and flushed quite easily and I flushed them until completely clear. I normally pack these w ith heparin; however, patient is due for dialysis rather quickly by report and as such I will allow t he hemodialysis nurse to begin hemodialysis at this point and will allow for them to pack this with h eparin appropriately. Sterile dressing placed over top. Patient tolerated the procedure well withou t any evidence of complication, remained in the ICU in good condition at the end of the procedure. A ll counts were correct at the end of the case. TK/MODL Voice ID: [id number] Report ID: [id number]
[2019-10-08 22:00] VITALS: O2SAT 97
--- NOTE | 2019-10-08 22:02 | P.PN ---
Date of Service: 10/08/19 Vital Signs Temp Pulse Resp BP Pulse Ox 96.6 F L 87 17 103/59 L 99 10/08/19 16:00 10/08/19 21:00 10/08/19 21:00 10/08/19 21:00 10/08/19 21:00 Medications Acetaminophen (Tylenol -Extra Strength) 500 mg PO Q4HP PRN PRN Reason: TEMP > 101' F Stop: 11/03/19 20:25 Ascorbic Acid (Vitamin C) 500 mg PO DAILY PANCHO Stop: 11/04/19 10:46 Last Admin: 10/08/19 07:55 Dose: Not Given Documented by: Calcitriol (Rocaltrol) 0.5 mcg PO DAILY PANCHO Stop: 11/04/19 11:01 Last Admin: 10/08/19 07:55 Dose: Not Given Documented by: Cholecalciferol (Vitamin D 1000 Iu Tab) 3,000 unit PO DAILY PANCHO Stop: 11/05/19 09:01 Last Admin: 10/08/19 07:55 Dose: Not Given Documented by: Cholestyramine Resin (Questran Light) 4 gm PO BID PANCHO Stop: 11/04/19 11:01 Last Admin: 10/08/19 20:48 Dose: 4 gm Documented by: Collagenase (Santyl Ointment) 1 appl TOP 1700 [facility] Stop: 11/06/19 17:01 Last Admin: 10/08/19 09:00 Dose: 1 appl Documented by: Dextrose (Dextrose 50% Syringe/Vial) 12.5 gm IV PRN PRN; Protocol PRN Reason: HYPOGLYCEMIA Stop: 11/04/19 12:53 Emollient Gel ([employer] Gel) 1 appl TOP DAILY PANCHO Stop: 11/06/19 19:01 Last Admin: 10/08/19 09:00 Dose: Not Given Documented by: Glucagon (Glucagen) 1 mg IM 1X PRN; Protocol PRN Reason: HYPOGLYCEMIA Stop: 11/04/19 12:53 Heparin Sodium (Porcine) (Heparin 5,000 Units/Ml) 5,000 unit SQ Q12HR PANCHO Stop: 11/03/19 21:01 Last Admin: 10/08/19 20:47 Dose: 5,000 unit Documented by: Heparin Sodium (Porcine) (Heparin 1,000 Units/Ml) 6,000 unit IV EVERY HD PRN PRN Reason: AFTER EACH Stop: 11/07/19 08:29 Meropenem 500 mg/ Sodium (Chloride) 100 mls @ 100 mls/hr IV DAILY [facility] Stop: 11/04/19 09:01 Last Admin: 10/08/19 09:33 Dose: 100 mls Documented by: Sodium Chloride (Ns 1000 Ml Ivbag) 1,000 mls @ 0 mls/hr IV .Q0M PRN; Protocol PRN Reason: Priming and BP support at HD Stop: 10/08/19 23:59 Albumin Human (Albumin 25%) 50 mls @ 100 mls/hr IV EVERY HD PANCHO Stop: 11/07/19 09:01 Vancomycin HCl (Vancomycin 1 Gm/250 Ml Ns Ivpb) 1 gm in 250 mls @ 125 mls/hr IV AFTER EACH DIALYSIS PANCHO Stop: 11/07/19 09:01 Last Admin: 10/08/19 21:33 Dose: 250 mls Documented by: Insulin Human Regular (Novolin -R) 0 unit SQ ACHS PANCHO; Protocol Stop: 11/03/19 21:01 Last Admin: 10/08/19 20:48 Dose: Not Given Documented by: Mannitol (Mannitol 12.5 Gm/50 Ml Vial) 12.5 gm IV EVERY HD PRN PRN Reason: Titrate to SBP (MUST DEFINE) Stop: 11/07/19 08:29 Midodrine (Proamatine) 5 mg PO Q12HP PRN PRN Reason: LOW BP Stop: 11/04/19 10:01 Nutritional Formula (Promod Liquid Protein) 30 ml PO BID PANCHO Stop: 11/06/19 21:01 Last Admin: 10/08/19 20:48 Dose: 30 ml Documented by: Nutritional Formula (Ensure High Protein) 237 ml PO BID PANCHO Stop: 11/06/19 21:01 Last Admin: 10/08/19 20:48 Dose: 237 ml Documented by: Ondansetron HCl (Zofran) 4 mg IV Q6HP PRN PRN Reason: NAUSEA / VOMITING Stop: 11/03/19 20:25 Last Admin: 10/07/19 15:07 Dose: 4 mg Documented by: Pantoprazole Sodium (Protonix Tab) 40 mg PO ACB PANCHO; Protocol Stop: 11/05/19 07:31 Last Admin: 10/08/19 07:30 Dose: Not Given Documented by: Sevelamer Carbonate (Renvela) 800 mg PO TIDWM [facility] Stop: 11/07/19 08:01 Last Admin: 10/08/19 17:00 Dose: Not Given Documented by: Sodium Bicarbonate (Sodium Bicarb 325 Mg) 650 mg PO TID [facility] Stop: 11/06/19 21:01 Last Admin: 10/08/19 20:48 Dose: 650 mg Documented by: Sodium Chloride (Normal Saline Flush) 10 ml IV BID [facility] Stop: 11/03/19 21:01 Last Admin: 10/08/19 20:49 Dose: 10 ml Documented by: Sodium Chloride (Sodium Chloride 10 Ml Inj) 10 ml IV UD PRN PRN Reason: Diluant Stop: 11/03/19 20:25 Tamsulosin HCl (Flomax) 0.4 mg PO BID [facility] Stop: 11/04/19 11:01 Last Admin: 10/08/19 20:48 Dose: 0.4 mg Documented by: Tramadol HCl (Ultram) 50 mg PO Q6H PRN PRN Reason: Pain scale 5-7 (Moderate) Stop: 11/07/19 11:31 Last Admin: 10/08/19 11:59 Dose: 50 mg Documented by: Microbiology Results 10/04/19 14:37 Throat Culture & Sensitivity - Final NORMAL UPPER RESPIRATORY YEIMY GROWN. 10/04/19 14:50 Blood - Blood Aerobic Blood Culture - Preliminary No growth in 24 hours. 10/04/19 14:50 Blood - Blood Anaerobic Blood Culture - Preliminary No growth in 24 hours. 10/04/19 14:35 Blood - Blood Aerobic Blood Culture - Preliminary No growth in 24 hours. 10/04/19 14:35 Blood - Blood Anaerobic Blood Culture - Preliminary No growth in 24 hours. 10/04/19 14:37 Nasopharnyx Coronavirus COVID-19 PCR - Final 10/04/19 14:37 Nasopharnyx Influenza Type A Antigen Screen - Final 10/04/19 14:37 Nasopharnyx Influenza Type B Antigen Screen - Final 10/04/19 14:37 Throat Group A Streptococcus Rapid Screen - Final Assessment/ Plan: Nephrology CPS stable without CP or SOB. Weakness and fatigue. No acute events overnight. Vitals, medications, blood work and imaging reviewed in the chart. NAD. Obese. MMM. Neck supple. CTA. RRR. Soft Abd. No C/C. LE edema trace. No rash. AAO. Normal Speech. A/ DIEGO in the setting of sepsis. Acidosis CKD IV with proteinuria. Chronic hypotension. Anemia in chronic illness. Severe Malnutrition. TA/ Secondary HyperPTH. Acute ESBL E.coli Cystitis. MRSA Wounds. P/ Continue current POC and Medications. Acute HD today. Next HD tomorrow. Stop IVF. Give IV Albumin as needed. Continue abx. Transfuse PRBC as needed. Give Retacrit PRN. AM labs. Daily weight. No NSAIDs. Case reviewed with Dr. Mejia. Greater than 30min patient care.
[2019-10-09 05:10] LABS: Absolute Lymphocytes (CBC) 0.6 K/uL (0.7-4.9); Basophils % 0.5 % (0-1.3); Hematocrit 24.9 % (39.6-49.0); Lymphocytes % 20.2 % (15.3-44.8); RBC Red Blood Cell Count 2.84 M/uL (4.33-5.43)
[2019-10-09 05:15] LABS: Magnesium 1.8 mg/dL (1.8-2.4); Potassium 3.7 mmol/L (3.5-5.1)
[2019-10-09] MEDS ORDERED: MAGNESIUM SULFATE 1 gm IVPB 1 GM/100 ML BAG IV ONE (06:00)
[2019-10-09] MEDS: INSULIN -REGULAR HUMAN 50 UNIT/0.5 ML ML SQ SCH ×2 (07:30→11:30)
[2019-10-09] MEDS: PROMOD 30 ML DOSE PO SCH (09:00)
[2019-10-09] MEDS: ENSURE HIGH PROTEIN 237 ML CAN PO SCH (09:00)
[2019-10-09] MEDS: SODIUM BICARB 325 MG TAB PO SCH (09:17)
[2019-10-09] MEDS: CALCITROL 0.25 MCG CAP PO SCH (09:17)
[2019-10-09] MEDS: CHOLESTYRAMINE/ASP 4 GM/PKT PO SCH (09:17)
[2019-10-09] MEDS: VITAMIN D 1000 UNIT TAB PO SCH (09:21)
[2019-10-09] MEDS: SEVELAMER CARBONATE 800 MG TABLET PO SCH ×2 (09:22→12:00)
[2019-10-09] MEDS: TAMSULOSIN 0.4 MG SR CAP PO SCH (09:23)
[2019-10-09] MEDS: PANTOPRAZOLE 40MG TABLET PO SCH (09:26)
[2019-10-09] MEDS: HEPARIN 5000 UNIT/ML 1 ML VIAL SQ SCH (09:27)
[2019-10-09] MEDS: Meropenem 500 MG in NA CHLORIDE 0.9% 100 ML IV SCH (09:27)
[2019-10-09] MEDS: ONDANSETRON 4 MG/2 ML VIAL IV PRN (09:42)
[2019-10-09 09:44] VITALS: TEMP 96.8
[2019-10-09] MEDS: ASCORBIC ACID 500 MG TABLET PO SCH (09:45)
[2019-10-09] MEDS: MEDIHONEY 44 ML TOPICAL TUBE TOP SCH (09:52)
--- NOTE | 2019-10-09 12:48 | P.PN ---
Subjective Date of Service: 10/09/19 Primary Care Provider: Dr. Bruno Chief Complaint: Nausea, vomiting, poor oral intake Subjective: Improving Physical Examination - Vital Signs Temperature: 96.8 F Blood Pressure: 130/59 Pulse: 92 Respirations: 20 Pulse Ox (%): 92 - Physical Exam General: Alert, In no apparent distress, Cooperative Integumentary: Other (perineal wound stable, packed, clear drainage, sacrum stable grade I decubitus) - Studies Medications List Reviewed: Yes Assessment And Plan - Current Problems (Diagnosis) (1) Open wound of perineum Current Visit: Yes Status: Acute Plan: Daily wound care to perineal wound - removal all dressings, irrigate, repack with 1/2" plain packing for now. add santyl - will transition to amira soon - continue medical management Physician Review Additional Text: Patient is a 83 year old male with pulmonary HTN, acute blood loss anemia s/p EGD which showed suspected esophageal candidiaisis who returned to the hospital with nausea and vomiting. Infectious work up yielded ESBL UTI and MRSA sacral ulcers. He was also found to have advanced CKD, requiring HD during this admission. Impression: Acute on chronic renal failure stage 5 with hyperkalemia suspect related to dehydration/poor oral intake complicated with mild pancreatitis, recurrent UTI with chronic Hill catheter, urine culture positive E coli-ESBL, and sacral decubitus with wound culture positive for MRSA Recurring UTI with chronic Hill catheter, urine culture positive for E coli- ESBL Nausea and vomiting suspect related to mild pancreatitis Chronic sacral decubitus ulcer stage I with cellulitis, wound culture positive for MRSA Chronic diastolic CHF GERD with history of esophagitis Chronic pleural effusions Diabetes mellitus type 2 Hypertension Anemia of chronic disease History orthostatic hypotension Plan: Continue vancomycin and meropenem as per ID ID recommends LTAC. Discussed during MDR. SW on board. Transfuse 1 unit of pRBC to keep Hb > 8 Continue PPI Plan is to proceed with temporary HD catheter. Patient is oliguric Appreciate recommendations from Nephrology Continue holding BP meds due to soft BP. PRN Midodrine on board Continue insulin sliding scale Continue PPI
--- NOTE | 2019-10-09 15:00 | P.DS ---
Admission Date: 10/04/19 Discharge Date: 10/09/19 Primary Care Provider: Dr. Bruno Disposition: [facility] Discharge Condition: GOOD Reason for Admission: Nausea, vomiting, poor oral intake Hospital Course: Patient is a 83 year old male with pulmonary HTN, acute blood loss anemia s/p EGD which showed suspected esophageal candidiaisis who returned to the hospital with nausea and vomiting. Infectious work up yielded ESBL UTI and MRSA sacral ulcers. He was also found to have advanced CKD, requiring HD during this admission. He currently has a R femoral HD catheter placed on 10/07. He will be dsicharged on assisted meropenem and vancomycin as per ID. He will be dsicharged to LTAC. Other issues addressed during this stay include blood loss anemia for which he was transfused. Problems: Acute on chronic renal failure stage 5 with hyperkalemia suspect related to dehydration/poor oral intake complicated with mild pancreatitis, recurrent UTI with chronic Hill catheter, urine culture positive E coli-ESBL, and sacral decubitus with wound culture positive for MRSA Recurring UTI with chronic Hill catheter, urine culture positive for E coli- ESBL Nausea and vomiting suspect related to mild pancreatitis Chronic sacral decubitus ulcer stage I with cellulitis, wound culture positive for MRSA Chronic diastolic CHF GERD with history of esophagitis Chronic pleural effusions Diabetes mellitus type 2 Hypertension Anemia of chronic disease History orthostatic hypotension Vital Signs/Physical Exam: Temp Pulse Resp BP Pulse Ox 96.8 F 92 H 13 112/66 92 10/09/19 12:48 10/09/19 13:00 10/09/19 13:00 10/09/19 13:00 10/09/19 12:48 General: Alert, In no apparent distress, Cooperative HEENT: Atraumatic, Normocephalic, EOMI Neck: Supple Respiratory: Normal air movement Cardiovascular: Normal S1 S2, Systolic murmur Gastrointestinal: Normal bowel sounds, Soft and benign, Non-distended Musculoskeletal: Clubbing Integumentary: Pressure ulcer Neurological: Normal speech, Sensation intact, Normal affect Urinary: Dialysis catheter Laboratory Data at Discharge: WBC 2.7 K/uL (4.3-10.9) L 10/09/19 04:47 Hgb 8.1 g/dL (13.6-17.9) L 10/09/19 04:47 Hct 24.9 % (39.6-49.0) L 10/09/19 04:47 Plt Count 120 K/uL (152-406) L 10/09/19 04:47 PT 17.6 SECONDS (9.5-12.5) H 10/07/19 19:51 INR 1.50 10/07/19 19:51 APTT 31.6 SECONDS (24.3-36.9) 10/04/19 14:35 Sodium 140 mmol/L (136-145) 10/09/19 04:47 Potassium 3.7 mmol/L (3.5-5.1) 10/09/19 04:47 BUN 95 mg/dL (7-18) H D 10/09/19 04:47 Creatinine 4.83 mg/dL (0.55-1.3) H D 10/09/19 04:47 Glucose 87 mg/dL (74-106) 10/09/19 04:47 Uric Acid 11.7 mg/dL (3.5-7.2) H 10/08/19 05:02 Phosphorus 6.8 mg/dL (2.5-4.9) H 10/07/19 05:04 Magnesium 1.8 mg/dL (1.8-2.4) 10/09/19 04:47 Total Bilirubin 0.3 mg/dL (0.2-1.0) 10/07/19 05:04 AST 20 U/L (15-37) 10/07/19 05:04 ALT 10 U/L (12-78) L 10/07/19 05:04 Alkaline Phosphatase 128 U/L (45-117) H 10/07/19 05:04 Troponin I 0.05 ng/mL (0.0-0.045) H 10/05/19 04:48 Triglycerides 171 mg/dL (<150) H 10/05/19 04:48 Cholesterol 69 mg/dL (<200) 10/05/19 04:48 HDL Cholesterol 16 mg/dL (40-60) L 10/05/19 04:48 Cholesterol/HDL Ratio 4.31 10/05/19 04:48 Amylase 90 U/L (25-115) 10/04/19 14:35 Lipase 274 U/L (73-393) 10/06/19 05:17 Home Medications: Ascorbic Acid [Vitamin C*] 500 mg PO DAILY 10/05/19 Calcitrol [Rocaltrol*] 0.5 mcg PO DAILY 10/05/19 Cholecalciferol (Vitamin D3) [Vitamin D3] 3 tab PO DAILY 10/05/19 Cholestyramine/Aspartame [Cholestyramine Light Packet] 4 gm PO BID 10/05/19 Collagenase [Santyl Ointment*] 1 appl TP DAILY 10/05/19 Insulin Lispro [Humalog Kwikpen U-100] 4 unit SQ TID 10/05/19 Ipratropium/Albuterol Sulfate [Iprat-Albut 0.5-3(2.5) mg/3 ml] 3 ml IH Q6H 10/05/19 Midodrine HCl [Proamatine*] 5 mg PO Q12HP 10/05/19 Na Bicarb Tab [Sodium Bicarb 325 MG Tab*] 325 mg PO TID 10/05/19 Pantoprazole [Protonix Tab*] 40 mg PO DAILY 10/05/19 Tamsulosin [Flomax*] 0.4 mg PO BID 10/05/19 Ascorbic Acid [Vitamin C*] 500 mg PO DAILY tablet 10/09/19 Collagenase [Santyl Ointment*] 1 appl TOP 1700 tube 10/09/19 Ensure High Protein 237 ml PO BID can 10/09/19 Insulin -Regular Human [Novolin -R*] See Protocol SQ ACHS ml 10/09/19 Mannitol 25% [Mannitol*] 12.5 gm IV EVERY HD PRN vial 10/09/19 Medihoney [Medihoney Woundcare Gel*] 1 appl TOP DAILY tube 10/09/19 Na Bicarb Tab [Sodium Bicarb 325 MG Tab*] 650 mg PO TID tab 10/09/19 Sevelamer Carbonate [Renvela*] 800 mg PO TIDWM tablet 10/09/19 traMADol HCL [Ultram*] 50 mg PO Q6H PRN tab 10/09/19 Diet: Renal Activity: Bedrest
[2019-10-09 15:05] VITALS: BP 102/51
--- NOTE | 2019-10-09 19:29 | PN ---
Date of Progress Note: 10/09/2019 Subjective: Patient seen and examined. He is in the process of getting transferred to [place]. Objective: Vital Signs: Have been reviewed and he is off pressors. Blood pressure remains on the l ower side, but otherwise stable. He has a right groin dialysis catheter in place. General: He appears in no acute distress. Lungs: Clear to auscultation anteriorly with diminished breath sounds at bases. Extremities: With anasarca in bilateral lower extremities and dressing was noted. Laboratory Data: Showing creatinine improving from 6.1-4.8, BUN down to 95. CBC showing a hemoglobi n of 8.1, hematocrit 24.9. Current Medications: Have been reviewed in detail. Impression: 1.End-stage renal disease, on dialysis. The patient had his first dialysis treatment yesterday and he seems to be doing okay. He will have a second dialysis treatment tomorrow. 2.Anemia secondary to chronic disease. The patient will be started on Epogen once he gets to [facility] and also will need to monitor hemoglobin and iron levels closely. 3.Hypotension, currently stable. 4.Severe malnutrition. 5.Acute extended spectrum beta-lactamase Escherichia coli cystitis. The patient remains on antibiot ics which will be dosed post HD. Plan: The patient is overall doing okay at this time. He is hemodynamically stable. Continue antib iotics for ESBL infection. Monitor anemia closely and monitor blood pressures closely. Avoid further episodes of hypotension and nephrotoxins. Will follow up with dialysis tomorrow. VV/MODL Voice ID: [id number] Report ID: [id number]
--- NOTE | 2019-10-10 11:16 | EKG ---
Test Date: 2019-10-08 Test Time: 11:24:08 Load Dropper: FERNANDA MEASUREMENT RESULTS: Intervals: Rate: 85 [place]: QRSD: 126 QT: 420 QTc: 499 [place]: P: [place]: QRS: -8 T: 144 INTERPRETIVE STATEMENTS: Atrial fibrillation Nonspecific intraventricular block Cannot rule out Anterior infarct, age undetermined Abnormal ECG Compared to ECG 10/04/2019 14:35:13 Myocardial infarct finding now present Sinus tachycardia no longer present First degree AV block no longer present Left bundle-branch block no longer present Electronically Signed On 10-10-19 11:13:45 CDT by Johnnie Mccord
[2019-10-11 19:24] LABS: HBsAG Nonreactive (Nonreactive)
== END 2019-10-09 14:50 | DRG 698 ==
LOC: ER 13:12 → ERHOLD 17:06 → 3RD-ICU 19:26
PROVIDERS: ADMIT Family Medicine; ATTEND Internal Medicine
PROC: 06HY33Z Insertion of Infusion Device into Lower Vein, Percutaneous Approach (ICD-10-PCS; principal; 2019-10-08)
PROC: 5A1D70Z Performance of Urinary Filtration, Intermittent, Less than 6 Hours Per Day (ICD-10-PCS; 2019-10-08)
PROC: 30233N1 Transfusion of Nonautologous Red Blood Cells into Peripheral Vein, Percutaneous Approach (ICD-10-PCS; 2019-10-08)
DX: T83.511A Infection and inflammatory reaction due to indwelling urethral catheter, initial encounter (principal); A41.9 Sepsis, unspecified organism; K85.90 Acute pancreatitis without necrosis or infection, unspecified; I21.4 Non-ST elevation (NSTEMI) myocardial infarction; E43 Unspecified severe protein-calorie malnutrition; N18.6 End stage renal disease; R65.20 Severe sepsis without septic shock; I50.32 Chronic diastolic (congestive) heart failure; I13.2 Hypertensive heart and chronic kidney disease with heart failure and with stage 5 chronic kidney disease, or end stage renal disease; N17.9 Acute kidney failure, unspecified; E87.2 Acidosis; N30.00 Acute cystitis without hematuria; N25.81 Secondary hyperparathyroidism of renal origin; Z16.12 Extended spectrum beta lactamase (ESBL) resistance; D62 Acute posthemorrhagic anemia; L03.818 Cellulitis of other sites; L97.419 Non-pressure chronic ulcer of right heel and midfoot with unspecified severity; N36.0 Urethral fistula; E11.22 Type 2 diabetes mellitus with diabetic chronic kidney disease; K21.9 Gastro-esophageal reflux disease without esophagitis; Z86.718 Personal history of other venous thrombosis and embolism; E86.0 Dehydration; Z20.828 Contact with and (suspected) exposure to other viral communicable diseases; Z88.8 Allergy status to other drugs, medicaments and biological substances; Z79.899 Other long term (current) drug therapy; Z79.890 Hormone replacement therapy; I25.10 Atherosclerotic heart disease of native coronary artery without angina pectoris; E87.5 Hyperkalemia; K21.0 Gastro-esophageal reflux disease with esophagitis; D63.8 Anemia in other chronic diseases classified elsewhere; Z85.51 Personal history of malignant neoplasm of bladder; L89.151 Pressure ulcer of sacral region, stage 1; I95.1 Orthostatic hypotension; Z68.27 Body mass index [BMI] 27.0-27.9, adult; B96.20 Unspecified Escherichia coli [E. coli] as the cause of diseases classified elsewhere; B95.62 Methicillin resistant Staphylococcus aureus infection as the cause of diseases classified elsewhere; I27.20 Pulmonary hypertension, unspecified; E11.621 Type 2 diabetes mellitus with foot ulcer
CPT/HCPCS: 36415; 36430; 71045; 74176; 76377; 80048; 80053; 80061; 80076; 80202; 81001; 82043; 82150; 82274; 82550; 82553; 82570; 82947; 83036; 83605; 83690; 83735; 83880; 84100; 84145; 84300; 84439; 84443; 84484; 84550; 85014; 85018; 85025; 85610; 85730; 86021; 86038; 86225; 86317; 86704; 86850; 86900; 86901; 87040; 87070; 87077; 87081; 87086; 87088; 87186; 87205; 87340; 87804; 90935; 93005; 94640; 96361; 96365; 96367; 99285; C9113; J1644; J1940; J2405; J3370; J3475; J3590; J7030; J7040; P9016; P9047; Q5106; U0002